=== PATIENT | male | born 1960 | race Caucasian/White ===

== ENCOUNTER → 2017-09-07 | Outpatient (CLI) | payer MEDICARE ==
--- NOTE | 2017-09-07 10:16 | US ---
EXAMINATION TYPE: US liver DATE OF EXAM: 09/07/2017 COMPARISON: CT abdomen and pelvis January 16 2014 CLINICAL HISTORY: R94.5 Abnormal Liver Function Test. Large body habitus EXAM MEASUREMENTS: Liver Length: 13.8 cm Gallbladder Wall: 0.1 cm CBD: 0.4 cm Right Kidney: 10.7x4.4x5.5 cm Pancreas: Obscured by bowel gas Liver: fatty liver Gallbladder: wnl Evidence for sonographic Tena's sign: No CBD: wnl Right Kidney: small cortical cyst, 0.7 x 0.8 x 0.7 cm, non obstructing calculi lower pole 0.5 cm Visualized pancreas shows no mass or ductal dilatation. Portions are obscured by shadowing from overl [place] bowel gas on images saved. Visualized aorta shows no aneurysmal change. IVC is seen near hepatic dome. Visualized liver is heterogeneously hyperechoic consistent with diffuse fatty infiltration. No intrahepatic ductal dilatation is seen. No suspicious masses are seen on images saved. IMPRESSION: Heterogeneous hyperechoic appearance of liver is felt on basis of diffuse fatty infiltrat ion, no significant change from prior CT 2013.
== END ==
LOC: RADUSWWP 08:36
PROVIDERS: ATTEND Family Medicine
DX: R94.5 Abnormal results of liver function studies (principal)
CPT/HCPCS: 76705

== ENCOUNTER 2017-09-28 09:12 | Emergency (ER) | payer MEDICARE ==
[2017-09-28] MEDS ORDERED: SODIUM CHLORIDE 0.9% 1,000 ML IV STA (09:26)
[2017-09-28] MEDS ORDERED: ONDANSETRON 4 MG/2 ML VIAL IVP STA ×2 (09:51→10:39)
[2017-09-28] MEDS ORDERED: KETOROLAC 30 MG/ML 1 ML VIAL IVP STA (09:51)
--- NOTE | 2017-09-28 09:53 | ED ---
Abdominal Pain HPI - General Chief Complaint: Abdominal Pain Stated Complaint: Kidney stones Time Seen by Provider: 09/28/17 09:26 Source: patient, RN notes reviewed Mode of arrival: wheelchair Limitations: no limitations - History of Present Illness Initial Comments: 56-year-old male presents emergency Department chief complaint of right flank pain. Patient states symptoms started this morning. Patient states he has a history kidney stones has had have surgery and lithotripsy in the past. Patient admits to nausea vomiting no diarrhea no constipation. Patient reports no fevers no chills. Patient's urologist is Dr. Gregg. Patient states that he is unable to urinate and needs to go at this time. - Related Data Home Medications Medication Instructions Recorded Confirmed Citalopram Hydrobromide 20 mg PO DAILY 09/28/17 09/28/17 [Citalopram HBr] Previous Rx's Medication Instructions Recorded Hydrocodone/Acetaminophen [[place] 1 tab PO Q6HR PRN #12 tab 09/28/17 5-325] Ibuprofen [Motrin] 600 mg PO Q8HR PRN #30 tab 09/28/17 Ondansetron Odt [Zofran Odt] 4 mg PO Q8HR PRN #10 tab 09/28/17 Tamsulosin [Flomax] 0.4 mg PO DAILY #7 cap 09/28/17 Allergies Allergy/AdvReac Type Severity Reaction Status Date / Time No Known Allergies Allergy Verified 09/28/17 09:33 Review of Systems ROS Statement: Those systems with pertinent positive or pertinent negative responses have been documented in the HPI. ROS Other: All systems not noted in ROS Statement are negative. Past Medical History Past Medical History: Sleep Apnea/CPAP/BIPAP Additional Past Medical History / Comment(s): kidney stones, hep c, DDD, History of Any Multi-Drug Resistant Organisms: None Reported Past Surgical History: Orthopedic Surgery Additional Past Surgical History / Comment(s): 9--15 posterior lumbar decompression,fusion l2-3-4,l4-l5. transforaminal lumbar interbody fusion. lithotripsy,BILAT CTR,RT 4TH TRIGGER FINGER RELEASE COLONOSCOPY SPINAL INJECTIONS. Past Anesthesia/Blood Transfusion Reactions: No Reported Reaction Past Psychological History: Anxiety, Depression Smoking Status: Current every day smoker Past Alcohol Use History: None Reported Past Drug Use History: None Reported, Cocaine, IV Drug Use, Marijuana - Past Family History Father Additional Family Medical History / Comment(s): AROUND AGE 70 UNK HX Mother Family Medical History: Cancer, Osteoarthritis (OA) Additional Family Medical History / Comment(s): SKIN CANCER MOM IS 81 YEARS OLD General Exam Limitations: no limitations General appearance: alert, in no apparent distress Head exam: Present: atraumatic, normocephalic, normal inspection Eye exam: Present: normal appearance, PERRL, EOMI. Absent: scleral icterus, conjunctival injection, periorbital swelling ENT exam: Present: normal exam, normal oropharynx, mucous membranes moist Neck exam: Present: normal inspection. Absent: tenderness, meningismus, lymphadenopathy Respiratory exam: Present: normal lung sounds bilaterally. Absent: respiratory distress, wheezes, rales, rhonchi, stridor Cardiovascular Exam: Present: regular rate, normal rhythm, normal heart sounds. Absent: systolic murmur, diastolic murmur, rubs, gallop, clicks GI/Abdominal exam: Present: soft, tenderness (Mild suprapubic tenderness), normal bowel sounds. Absent: distended, guarding, rebound, rigid Back exam: Present: CVA tenderness (R). Absent: CVA tenderness (L) Skin exam: Present: warm, dry, intact, normal color. Absent: rash Course Vital Signs 09/28/17 09/28/17 09/28/17 09:19 11:27 12:10 Temperature 98.5 F Pulse Rate 84 70 66 Respiratory 16 18 18 Rate Blood Pressure 168/98 109/56 118/67 O2 Sat by Pulse 99 96 95 Oximetry 09/28/17 13:08 Temperature Pulse Rate 63 Respiratory 18 Rate Blood Pressure O2 Sat by Pulse 96 Oximetry Medical Decision Making - Medical Decision Making 56-year-old male presents emergency from for right flank pain. Patient has sudden onset of pain consistent with his prior kidney stones. Patient does have notable hematuria. Patient x-ray reveals possible 6 mm stone on the right. Patient will be discharged with Jamel Greene Flomax and follow-up with urology. Patient currently sees Dr. rGegg urologist. Return parameters were discussed. - Lab Data Result diagrams: 09/28/17 10:03 09/28/17 10:03 Lab Results 09/28/17 09/28/17 09/28/17 Range/Units 10:03 10:03 12:50 WBC 6.9 (3.8-10.6) k/uL RBC 4.58 (4.30-5.90) m/uL Hgb 15.8 (13.0-17.5) gm/dL Hct 44.8 (39.0-53.0) % MCV 97.7 (80.0-100.0) fL MCH 34.5 (25.0-35.0) pg MCHC 35.3 (31.0-37.0) g/dL RDW 13.5 (11.5-15.5) % Plt Count 143 L (150-450) k/uL Neutrophils % 65 % Lymphocytes % 19 % Monocytes % 7 % Eosinophils % 5 % Basophils % 1 % Neutrophils # 4.4 (1.3-7.7) k/uL Lymphocytes # 1.3 (1.0-4.8) k/uL Monocytes # 0.5 (0-1.0) k/uL Eosinophils # 0.4 (0-0.7) k/uL Basophils # 0.1 (0-0.2) k/uL Sodium 141 (137-145) mmol/L Potassium 4.2 (3.5-5.1) mmol/L Chloride 107 (98-107) mmol/L Carbon Dioxide 22 (22-30) mmol/L Anion Gap 12 mmol/L BUN 13 (9-20) mg/dL Creatinine 0.70 (0.66-1.25) mg/dL Est GFR (CKD-EPI)AfAm >90 (>60 ml/min/1.73 sqM) Est GFR (CKD-EPI)NonAf >90 (>60 ml/min/1.73 sqM) Glucose 156 H (74-99) mg/dL Calcium 9.8 (8.4-10.2) mg/dL Total Bilirubin 1.4 H (0.2-1.3) mg/dL AST 83 H (17-59) U/L ALT 74 H (21-72) U/L Alkaline Phosphatase 104 (38-126) U/L Total Protein 7.5 (6.3-8.2) g/dL Albumin 4.5 (3.5-5.0) g/dL Amylase 67 (30-110) U/L Lipase 421 H (23-300) U/L Urine Color Yellow Urine Appearance Clear (Clear) Urine pH 6.5 (5.0-8.0) Ur Specific [place] 1.008 (1.001-1.035) Urine Protein Trace H (Negative) Urine Glucose (UA) Negative (Negative) Urine Ketones Negative (Negative) Urine Blood Large H (Negative) Urine Nitrite Negative (Negative) Urine Bilirubin Negative (Negative) Urine Urobilinogen <2.0 (<2.0) mg/dL Ur Leukocyte Esterase Negative (Negative) Urine RBC 50 H (0-5) /hpf Urine WBC 3 (0-5) /hpf Urine Bacteria Occasional H (None) /hpf Urine Mucus Occasional H (None) /hpf Disposition Clinical Impression: Right flank pain, Hematuria, Nephrolithiasis Disposition: HOME SELF-CARE Condition: Stable Instructions: Kidney Stones (ED) Additional Instructions: Please return to the Emergency Department if symptoms worsen or any other concerns. Prescriptions: Hydrocodone/Acetaminophen [[place] 5-325] 1 tab PO Q6HR PRN #12 tab PRN Reason: Pain Ibuprofen [Motrin] 600 mg PO Q8HR PRN #30 tab PRN Reason: Pain Ondansetron Odt [Zofran Odt] 4 mg PO Q8HR PRN #10 tab PRN Reason: Nausea Tamsulosin [Flomax] 0.4 mg PO DAILY #7 cap Is patient prescribed a controlled substance at d/c from ED?: Yes When asked, does pt state using other controlled substances?: No If prescribed controlled substance>3 days was MAPS reviewed?: Prescribed <3 Days If opioid is for acute pain is fill amount 7 days or less?: Yes If Rx opioid, was Start Talking consent form obtained?: Yes Referrals: Franki Garvey MD [Primary Care Provider] - 1-2 days Kee Gregg MD [STAFF PHYSICIAN] - 1-2 days Time of Disposition: 13:19
[2017-09-28 10:20] LABS: Basophils # (A) 0.1 k/uL (0-0.2); Basophils % (A) 1 %; Eosinophils # (A) 0.4 k/uL (0-0.7); Eosinophils % (A) 5 %; HCT 44.8 % (39.0-53.0); HGB 15.8 gm/dL (13.0-17.5); Lymphocytes # (A) 1.3 k/uL (1.0-4.8); Lymphocytes % (A) 19 %; MCH 34.5 pg (25.0-35.0); MCHC 35.3 g/dL (31.0-37.0); MCV 97.7 fL (80.0-100.0); Mean Platelet Volume 7.8; Monocytes # (A) 0.5 k/uL (0-1.0); Monocytes % (A) 7 %; Neutrophils # (A) 4.4 k/uL (1.3-7.7); Neutrophils % (A) 65 %; Platelet Count 143 k/uL (150-450); RBC 4.58 m/uL (4.30-5.90); RDW 13.5 % (11.5-15.5); WBC 6.9 k/uL (3.8-10.6)
[2017-09-28 10:29] LABS: ALT 74 U/L (21-72); AST 83 U/L (17-59); Albumin 4.5 g/dL (3.5-5.0); Alkaline Phosphatase 104 U/L (38-126); Amylase 67 U/L (30-110); Anion Gap 12 mmol/L; Blood Urea Nitrogen 13 mg/dL (9-20); Calcium 9.8 mg/dL (8.4-10.2); Carbon Dioxide 22 mmol/L (22-30); Chloride 107 mmol/L (98-107); Glucose 156 mg/dL (74-99); Lipase 421 U/L (23-300); Potassium 4.2 mmol/L (3.5-5.1); Sodium 141 mmol/L (137-145); Total Bilirubin 1.4 mg/dL (0.2-1.3); Total Protein 7.5 g/dL (6.3-8.2)
--- NOTE | 2017-09-28 10:36 | XR ---
EXAMINATION TYPE: XR KUB DATE OF EXAM: 09/28/2017 COMPARISON: 01/21/2014 INDICATION: Abdominal pain TECHNIQUE: Single view abdomen upright view FINDINGS: Nonspecific bowel gas pattern is present with air within small bowel loops as well as the colon. No f ree air is evident. No differential air-fluid levels are present. Psoas margins are normal. No organomegaly is present. There is a 0.6 cm calcification over the inferior pole the right kidney. IMPRESSION: 1. 0.6 cm calcification inferior pole right kidney 2. Nonspecific bowel gas pattern
[2017-09-28] MEDS ORDERED: MORPHINE SULFATE 2 MG/ML SYRINGE IVP STA ×2 (10:39→11:27)
[2017-09-28] MEDS ORDERED: TAMSULOSIN 0.4 MG CAP.ER.24H PO STA (12:16)
[2017-09-28 13:08] LABS: Appearance,Urine Clear (Clear); Bacteria,Urine Occasional /hpf; Bilirubin,Urine Negative (Negative); Blood,Urine Large (Negative); Color,Urine Yellow; Glucose,Urine (UA) Negative (Negative); Ketones,Urine Negative (Negative); Leukocyte Esterase,Urine Negative (Negative); Mucus,Urine Occasional /hpf; Nitrite,Urine Negative (Negative); PH, Urine 6.5 (5.0-8.0); Protein,Urine Trace (Negative); RBC,Urine 50 /hpf (0-5); Specific Gravity,Urine 1.008 (1.001-1.035); Urobilinogen,Urine <2.0 mg/dL (<2.0); WBC,Urine 3 /hpf (0-5)
[2017-09-28 13:37] VITALS: BP 121/66; PULSE 62; RESP 16; TEMP 97.1
== END 2017-09-28 13:50 | disposition home or self-care (01) ==
LOC: EC 09:12
DX: N20.0 Calculus of kidney (principal); G47.30 Sleep apnea, unspecified; Z99.89 Dependence on other enabling machines and devices; F32.9 Major depressive disorder, single episode, unspecified; F41.9 Anxiety disorder, unspecified; F17.200 Nicotine dependence, unspecified, uncomplicated; Z87.442 Personal history of urinary calculi; Z86.19 Personal history of other infectious and parasitic diseases; Z79.899 Other long term (current) drug therapy
CPT/HCPCS: 51798; 36415; 80053; 82150; 83690; 85025; 81001; 74018; 99284; 96374; 96375 ×2; 96376; 96361; J2405; J1885; J2270

== ENCOUNTER → 2017-10-02 | Outpatient (CLI) | payer MEDICARE ==
[2017-10-02 11:03] LABS: Albumin 4.5 g/dL (3.5-5.0); Bilirubin, Delta 0.3 mg/dL (0.0-0.2); Bilirubin,Unconjugated 0.7 mg/dL (0.0-1.1); Total Protein 7.6 g/dL (6.3-8.2)
== END | disposition home or self-care (01) ==
LOC: LABWHC1 10:22
PROVIDERS: ATTEND Family Medicine
DX: R94.5 Abnormal results of liver function studies (principal)
CPT/HCPCS: 36415; 80076

== ENCOUNTER → 2017-10-05 | Outpatient (CLI) | payer MEDICARE ==
--- NOTE | 2017-10-05 09:20 | CT ---
EXAMINATION TYPE: CT abdomen pelvis wo con DATE OF EXAM: 10/05/2017 COMPARISON: 01/16/2014 HISTORY: Bilateral flank pain, history of stones CT DLP: 1153 mGycm Automated exposure control for dose reduction was used. TECHNIQUE: Helical acquisition of images was performed from the lung bases through the pelvis. FINDINGS: LUNG BASES: Minimal bibasilar subsegmental atelectasis is noted. LIVER/GB: There is a cirrhotic morphology of the liver with peripheral nodularity and overall diffuse heterogeneity of the hepatic parenchyma. Lack of intravenous contrast and hepatocellular disease gilman it evaluation for hepatic masses. Screening MR could be performed to evaluate for small hepatoma. Haz iness of the central mesentery and engorgement of the portal vein as well as few gastrohepatic ligame nt small varices suggest early portal hypertension. PANCREAS: No ductal dilatation. SPLEEN: Unremarkable in size with multiple adjacent splenules. The spleen is enlarged measuring 14.1 cm in craniocaudal dimension. ADRENALS: No thickening or nodularity. KIDNEYS: Nonobstructing left lower pole renal calculus measures 4 mm. Nonobstructing right lower pole renal calculus measures 8 mm. Punctate 2 mm right midpole renal calculus is also present. No evidenc e of hydronephrosis or ureteral calculus bilaterally. There is a 3 mm calculus identified within the urinary bladder just distal to the right ureterovesicular junction suggesting recently passed stone. Urinary bladder is decompressed with circumferential wall thickening likely attributable to nondisten tion. FREE AIR: No free air is visualized ADENOPATHY: No greater than 1 cm short axis lymph nodes are seen within the abdomen or pelvis. REPRODUCTIVE ORGANS: Prostate gland is heterogenous containing central zone calcifications. OSSEOUS STRUCTURES: Surgical fusion of the L2-L5 vertebral bodies is seen. Multilevel degenerative c hange of the visualized thoracolumbar spine. BOWEL: Scattered colonic diverticula are seen without pericolonic fat stranding. Appendix is air-gómez led and within normal limits. No dilation of the large or small bowel. IMPRESSION: 1. FINDINGS SUGGESTING A RECENTLY PASSED RIGHT-SIDED 3 MM CALCULUS NOW LOCATED WITHIN THE URINARY CONNOR DDER JUST DISTAL TO THE RIGHT URETEROVESICULAR JUNCTION. 2. BILATERAL NONOBSTRUCTING RENAL CALCULI. 3. CIRRHOTIC MORPHOLOGY OF THE LIVER WITH FINDINGS SUGGESTING EARLY PORTAL HYPERTENSION.
== END | disposition home or self-care (01) ==
LOC: RADCTMAIN 08:12
PROVIDERS: ATTEND Urology
DX: N21.0 Calculus in bladder (principal); N20.0 Calculus of kidney
CPT/HCPCS: 74176

== ENCOUNTER → 2017-10-27 | Outpatient (CLI) | payer MEDICARE ==
--- NOTE | 2017-10-27 12:33 | XR ---
Abdomen HISTORY: Renal calculus, follow-up right-sided lithotripsy Frontal view of the abdomen on 2 images correlated to prior exam 09/28/2017, prior CT abdomen pelvis The calcification seen at the lower pole the right kidney on previous exam is no longer evident. Ther e is a calcification in the midpole the left kidney measuring approximately 3 to 4 mm. Areas of overl [place] bowel gas which may obscure detail. Indications are within the pelvis. Impression: Interval lithotripsy.
== END | disposition home or self-care (01) ==
LOC: RADXRMAIN 09:36
PROVIDERS: ATTEND Urology
DX: N20.0 Calculus of kidney (principal); Z98.890 Other specified postprocedural states
CPT/HCPCS: 74018

== ENCOUNTER → 2017-11-30 | Outpatient (CLI) | payer MEDICARE ==
[2017-11-30 10:57] LABS: Albumin 4.1 g/dL (3.5-5.0); Bilirubin, Delta 0.3 mg/dL (0.0-0.2); Bilirubin,Unconjugated 0.8 mg/dL (0.0-1.1); Total Bilirubin 1.1 mg/dL (0.2-1.3); Total Protein 7.3 g/dL (6.3-8.2)
[2017-11-30 10:58] LABS: Basophils # (A) 0.1 k/uL (0-0.2); Basophils % (A) 1 %; Eosinophils # (A) 0.4 k/uL (0-0.7); Eosinophils % (A) 5 %; HCT 44.9 % (39.0-53.0); HGB 15.3 gm/dL (13.0-17.5); Lymphocytes # (A) 1.6 k/uL (1.0-4.8); Lymphocytes % (A) 22 %; MCV 97.2 fL (80.0-100.0); Mean Platelet Volume 8.1; Monocytes # (A) 0.5 k/uL (0-1.0); Monocytes % (A) 7 %; Neutrophils # (A) 4.4 k/uL (1.3-7.7); Neutrophils % (A) 62 %; Platelet Count 129 k/uL (150-450); RBC 4.62 m/uL (4.30-5.90); WBC 7.1 k/uL (3.8-10.6)
[2017-11-30 16:58] LABS: Iron Saturation 29.45 (15.00-50.00)
[2017-11-30 17:18] LABS: Alpha Fetoprotein, Tumor Mkr <2.5 ng/mL (0.0-7.9)
== END | disposition home or self-care (01) ==
LOC: LABWHC1 09:43
DX: R94.5 Abnormal results of liver function studies (principal); D69.6 Thrombocytopenia, unspecified
CPT/HCPCS: 36415; 80076; 82105; 82728; 83540; 83550; 85025

== ENCOUNTER → 2018-01-10 | Outpatient (CLI) | payer MEDICARE ==
--- NOTE | 2018-01-10 16:32 | CONS ---
CONSULTATION DATE OF SERVICE: 01/10/2018 This patient is a 57-year-old gentleman who has been evaluated in the sleep center for obstructive sleep apnea-hypopnea syndrome. HISTORY OF PRESENT ILLNESS/SLEEP-WAKE EVALUATION: This patient was diagnosed with sleep apnea about 10 years ago in another institution. Since that time he has been on treatment with CPAP every night for the whole night. Original sleep study was done as a home sleep apnea test. He never had a polysomnogram or CPAP titration. At present he is using his machine, as already mentioned, every night. I checked his CPAP unit. The pressure is in the range between 5 and 20. Usage is 30/30 for more than 4 hours, average 7.7 hours per night. Patient's usual sleep schedule is from between midnight and 2 a.m. until between 7 and 10 a.m. Sometimes he has problems with falling asleep. No TV in bedroom. Usually he sleeps on the back position. He may wake up from sleep up to 4 times. With the machine he usually has no snoring. G[place]mith Sleepiness Scale is 5. As already mentioned, I checked the patient's CPAP unit. It showed great compliance, but there is not any information from the machine about apnea-hypopnea index. PAST MEDICAL HISTORY: 1. Back problems. 2. Depression. 3. Kidney stones. PAST SURGICAL HISTORY: 1. Surgery for kidney stones. 2. Surgery for bilateral carpal tunnel syndrome. 3. Back surgery. MEDICATIONS: 1. Celexa. 2. Percocet. SOCIAL HISTORY: Positive for smoking for about 40 years; at present less than 1 pack a day. The patient continues to smoke. Alcohol consumption none for many years. FAMILY HISTORY: Hypertension, stroke, arthritis, sinus headaches, cancer, thyroid problems, mental illness. REVIEW OF SYSTEMS: Sometimes awakenings from sleep while on treatment with CPAP. Also patient has twitching movements at night, according to his . PHYSICAL EXAMINATION: GENERAL A pleasant gentleman without distress. VITAL SIGNS: BP 134/81, HR 78, RR 18, height 5 feet 7-1/2 inches, weight 240.6, BMI 37, temperature 97.7, oxygen saturation at room air 94%. HEENT: PERRLA, EOMI. Evaluation of oropharynx showed tongue protrudes midline; extremely low position of soft palate. NECK: Wide; 19 inches in circumference. Supple. No JVD. Thyroid is not palpable. LUNGS: Clear to percussion and to auscultation. Good air exchange. No wheezing or rhonchi. HEART: S1, S2 regular. No murmurs, gallops or rubs. ABDOMEN: Slightly obese. EXTREMITIES : No clubbing or cyanosis. ASSOCIATE ACCOUNT MANAGER: Awake, alert, and oriented X3. Cranial nerves 2 to 7 intact. There is no fasciculation or atrophy. noted. No focal deficits observed. IMPRESSION: 1. Obstructive sleep apnea-hypopnea syndrome for 10 years. The patient continues to use his CPAP equipment. He never had CPAP titration; he was diagnosed based on a home sleep test which was done by another institution. Low position of soft palate, wide neck; obstructive sleep apnea-hypopnea syndrome. 2. Obesity with body mass index 37. 3. Back problems. 4. Status post back surgery. 5. History of depression. 6. History of kidney stones. 7. Status post surgical treatment of kidney stones. 8. Status post surgery for bilateral carpal tunnel syndrome. PLAN: 1. Prescription for all necessary CPAP supplies, including mask, tube, filters. We will replace his CPAP unit. 2. I will follow the patient when he receives his new CPAP unit to check apnea- hypopnea index to be sure that his respiration is under control. 3. If patient continues to have twitching movements at night, he may need a polysomnograph for evaluation of leg movements and subsequent treatment if necessary. 4. Sleep hygiene with regular time in bed for at least 8 hours. 5. Watching and losing weight. 6. No driving if feeling any sleepiness. Thank you very much for referring this patient for consultation. Sincerely, Jesús Garcia MD, PhD, FAASM Diplomat of [employer] [employer] Security Test Engineer of [facility] [place] MMODL / IJN: [id number] /
== END ==
LOC: SLEEP 14:41
PROVIDERS: ATTEND Internal Medicine
DX: G47.33 Obstructive sleep apnea (adult) (pediatric) (principal); E66.9 Obesity, unspecified; F32.9 Major depressive disorder, single episode, unspecified; R29.898 Other symptoms and signs involving the musculoskeletal system; F17.200 Nicotine dependence, unspecified, uncomplicated; Z84.1 Family history of disorders of kidney and ureter; Z98.890 Other specified postprocedural states; Z68.37 Body mass index [BMI] 37.0-37.9, adult; Z79.891 Long term (current) use of opiate analgesic; Z79.899 Other long term (current) drug therapy; Z99.89 Dependence on other enabling machines and devices
CPT/HCPCS: 99211

== ENCOUNTER → 2018-02-22 | Outpatient (CLI) | payer MEDICARE ==
--- NOTE | 2018-02-22 14:48 | SFUN ---
SLEEP CENTER FOLLOW UP NOTE DATE OF SERVICE: 02/22/2018 . A 57-year-old gentleman has been followed in the Sleep Center for treatment of obstructive sleep apnea-hypopnea syndrome. Recently patient received his new CPAP unit and he is using it without any significant problems. He feels comfortable with the machine. No snoring. No sleepiness during the day. [place] Sleepiness Scale today is 6, which is normal. I checked patient's CPAP unit. Usage is 100% of the time more than 4 hours every 7.7 hours. Pressure in the range of 5-15, 95% to a pressure of 11.8. Leak is 18 L per minute, which is borderline. Apnea-hypopnea index only 1.1. Patient feels that REM stopped at too low, which is now 5 cm of water. MEDICATIONS: Celexa, Percocet. PHYSICAL EXAM: Patient in no distress. BP 140/81, HR 74, RR 16, weight 238.4, temperature 98.2, respiratory rate 16. Neck is 19 inches in circumference. OROPHARYNX: Extremely low position of soft palate. ABDOMEN: Slightly obese. LUNGS Clear to percussion and to auscultation. Good air exchange. No wheezing or rhonchi. HEART S1, S2 regular. No murmurs, gallops, or rubs. EXTREMITIES No clubbing or cyanosis. CELL RELINER Awake, alert, and oriented X3. Cranial nerves 2 to 7 intact. There is no fasciculation or atrophy. noted. No focal deficits observed. IMPRESSION: 1. Obstructive sleep apnea-hypopnea syndrome. Full control with CPAP. Patient demonstrated 100% compliance with treatment, benefitting from treatment. 2. Obesity. 3. History of depression. 4. Status post back surgery. 5. Back problems. 6. History of kidney stones. 7. Status post surgical treatment for kidney stones. 8. Status post surgery for bilateral carpal tunnel syndrome. PLAN: 1. I changed regimen in the machine. It will start from 7 cm of water instead of 5 in REM. It will go to the range of pressure between 10 and 13. We will change mask to a DreamWear medium weight. 2. Losing weight. 3. Continue to use CPAP equipment every night. 4. No driving if feeling sleepiness. 5. Followup visit in 10 months or earlier if patient has any problems. Thank you very much for allowing me to participate in management of your patient. Sincerely, Jesús Garcia MD, PhD, FAASM Diplomat of [employer] Senior Scrum Master of [facility] [place] MMODL / BREA: [id number] /
== END | disposition home or self-care (01) ==
LOC: SLEEP 13:22
PROVIDERS: ATTEND Internal Medicine
DX: G47.33 Obstructive sleep apnea (adult) (pediatric) (principal); E66.9 Obesity, unspecified; F32.9 Major depressive disorder, single episode, unspecified; M53.9 Dorsopathy, unspecified; Z87.442 Personal history of urinary calculi; Z99.89 Dependence on other enabling machines and devices; Z98.890 Other specified postprocedural states; Z79.891 Long term (current) use of opiate analgesic; Z79.899 Other long term (current) drug therapy

== ENCOUNTER → 2018-03-21 | Outpatient (CLI) | payer MEDICARE ==
--- NOTE | 2018-03-21 09:18 | US ---
EXAMINATION TYPE: US abdomen complete DATE OF EXAM: 03/21/2018 COMPARISON: CT 10/05/17, US 09/07/17 CLINICAL HISTORY: R19.06 Epigastric swell mass or lump. history of hepatitis c, patient feels lump M UQ EXAM MEASUREMENTS: Liver Length: 17.9 cm Gallbladder Wall: 0.2 cm CBD: 0.5 cm Spleen: 12.7 cm Right Kidney: 11.2 x 6.0 x 5.2 cm Left Kidney: 11.2 x 5.9 x 5.6 cm Pancreas: Obscured by bowel gas Liver: enlarged, heterogeneous texture. ? mass very anterior = 2.7 x 2.7 x 2.2 cm This is in the are a that patient feels lump. Gallbladder: Suboptimal d/t patient not NPO Evidence for sonographic Tena's sign: No CBD: wnl Spleen: Upper limits of normal Right Kidney: wnl Left Kidney: 1cm stone seen mid pole Upper IVC: wnl Abd Aorta: wnl The intrahepatic portion of the IVC and proximal abdominal aorta are within normal limits. There is no evidence of cholelithiasis. Common bile duct is unremarkable. The visualized portions of the pa ncreas are homogenous. Kidneys are symmetric and free of hydronephrosis. No renal lesions are see n. IMPRESSION: 1. Hepatomegaly with underlying diffuse hepatocellular disease versus fatty liver. 2. Masslike area noted as discussed above. Contrast-enhanced CT or MRI of the liver is advised.
== END | disposition home or self-care (01) ==
LOC: RADUSWWP 08:18
PROVIDERS: ATTEND Physical Medicine & Rehabilitation
DX: R16.0 Hepatomegaly, not elsewhere classified (principal); R19.06 Epigastric swelling, mass or lump
CPT/HCPCS: 76700

== ENCOUNTER → 2018-03-26 | Outpatient (CLI) | payer MEDICARE ==
[2018-03-26 11:13] LABS: Basophils # (A) 0.1 k/uL (0-0.2); Basophils % (A) 1 %; Eosinophils # (A) 0.3 k/uL (0-0.7); Eosinophils % (A) 4 %; HGB 16.4 gm/dL (13.0-17.5); Lymphocytes # (A) 1.7 k/uL (1.0-4.8); Lymphocytes % (A) 24 %; MCH 33.1 pg (25.0-35.0); MCHC 33.5 g/dL (31.0-37.0); MCV 98.8 fL (80.0-100.0); Mean Platelet Volume 7.7; Monocytes # (A) 0.5 k/uL (0-1.0); Monocytes % (A) 7 %; Neutrophils # (A) 4.3 k/uL (1.3-7.7); Neutrophils % (A) 61 %; Platelet Count 140 k/uL (150-450); RBC 4.96 m/uL (4.30-5.90); RDW 13.1 % (11.5-15.5); WBC 7.1 k/uL (3.8-10.6)
[2018-03-26 16:25] LABS: Albumin 4.6 g/dL (3.80-4.90); Albumin/Globulin Ratio 1.7 (1.20-2.10); Anion Gap 5.3 mmol/L (4.00-12.00); Calcium 9.8 mg/dL (8.7-10.3); Carbon Dioxide 28.7 mmol/L (21.6-31.8); Globulin 2.7 g/dL (2.1-3.7); Potassium 5.3 mmol/L (3.5-5.5); Total Bilirubin 1.3 mg/dL (0.2-1.2); Total Protein 7.3 g/dL (6.2-8.2)
[2018-03-26 16:33] LABS: T4, Free (Free Thyroxine) 0.9 ng/dL (0.80-1.80)
== END ==
LOC: LABWHC1 09:45
PROVIDERS: ATTEND Nurse Practitioner Women's Health
DX: Z00.00 Encounter for general adult medical examination without abnormal findings (principal); E11.9 Type 2 diabetes mellitus without complications; Z12.5 Encounter for screening for malignant neoplasm of prostate
CPT/HCPCS: 36415; 80053; 80061; 84153; 84439; 84443; 85025

== ENCOUNTER → 2018-03-27 | Outpatient (CLI) | payer MEDICARE ==
--- NOTE | 2018-03-27 20:56 | MR ---
EXAMINATION TYPE: MR lumbar spine wo/w con DATE OF EXAM: 03/27/2018 COMPARISON: Plain film 12/24/2014 HISTORY: LBP x 8 years, prior surgery 2014 TECHNIQUE: Multiplanar, multisequence images of the lumbar spine were acquired utilizing 10 mL intravenous Gadav ist gadolinium contrast. L1-L2: Posterior broad-based disc bulge causes anterior mass effect on the thecal sac, mild to modera te central canal stenosis. Hypertrophy of the ligamentum flavum causes some posterior lateral mass ef fect on the thecal sac. Circumferential extension endplate disc complex encroaches somewhat greater o n the right neural foramen than left. L2-L3: Artifact is extensive. No definite spinal stenosis. Difficult to exclude some foraminal encroa chment on the right. L3-L4: Detail somewhat obscured by artifact. No definite spinal stenosis. No definite foraminal encro achment. L4-L5: There are laminectomy change is present. No significant central canal stenosis. Minimal disc b ulge causes slight anterior mass effect on the thecal sac. Difficult to exclude some foraminal encroa chment. L5-S1: Posterior central disc herniation is present contacting the anterior thecal sac and possibly t he proximal S1 nerve roots. There are facet arthropathy changes. No significant central stenosis. Cir cumferential extension of endplate disc complex encroaches upon the neural foramina right greater sofiya n left. Axial image #5 there is a small focus of low signal on T2, intermediate signal on T1 with emerson e questionable enhancement posterior to the inferior margin of L5 showing some minimal mass effect an teriorly on the thecal sac. Lumbar segments are intact. No paraspinal masses are identified. Conus medullaris has a normal appe arance. Lumbar vertebral bodies show preserved height. Posterior fixation at L2-L5 is again noted, brownlee sceptibility artifact obscures detail. Intervertebral spacing blocks present L3-4, L4-5. There is mul tilevel spondylosis, endplate discogenic marrow signal change. Loss of disc height and signal is pres ent at the intervertebral levels, there is associated vacuum phenomenon present at L5-S1. IMPRESSION: Degenerative disc disease as described with disc bulges at L1-2, L5-S1 as described.
== END | disposition home or self-care (01) ==
LOC: RADMRIMAIN 17:05
PROVIDERS: ATTEND Physical Medicine & Rehabilitation
DX: M51.26 Other intervertebral disc displacement, lumbar region (principal); M51.27 Other intervertebral disc displacement, lumbosacral region; M51.36 Other intervertebral disc degeneration, lumbar region; M51.37 Other intervertebral disc degeneration, lumbosacral region
CPT/HCPCS: 72158; A9585

== ENCOUNTER → 2018-05-18 | Outpatient (CLI) | payer MEDICARE ==
[2018-05-18 11:32] LABS: Blood Urea Nitrogen 13 mg/dL (9-20)
--- NOTE | 2018-05-18 16:34 | CT ---
EXAMINATION TYPE: CT abdomen w con DATE OF EXAM: 05/18/2018 COMPARISON: 10/05/2017 INDICATION: Epigastric pain with lump marked by BB DLP: 1440.3 mGycm, Automated exposure control for dose reduction was used. CONTRAST: 100 mL of Isovue 300. Study performed with Oral Contrast TECHNIQUE: Axial images were obtained from above the diaphragm to the iliac crests in the axial plane at 5 mm thick sections. Reconstructed images are reviewed on the computer in the coronal plane. FINDINGS: Limited CT sections are obtained the lung bases. The lung bases are clear. CT ABDOMEN: BB gray a skin and the epigastric region at the level of the patient's pain. This is jus t below the level of the liver and above the antrum of the stomach. No suspicious underlying abnormal ity is evident. Liver: Normal Spleen: Normal. Small splenule may be at the splenic hilum. Pancreas: Normal Adrenal glands: The adrenal glands are normal. Gallbladder: Normal Kidneys: No masses are evident. No hydronephrosis is present. No cysts are present. There are nono bstructing renal stones present bilaterally. This is in the posterior right mid kidney measuring 0.3 cm and in the mid to upper pole left kidney measuring 0.4 cm. Delayed images were obtained through th e kidneys. No hydronephrosis or hydroureter is evident. Aorta: Normal Inferior vena cava: Normal. Loops of bowel within the abdomen distended with oral contrast appear unremarkable. There are loops o f bowel lacking oral contrast limiting their evaluation. No dilated loops of bowel are evident. Fecal debris is within the colon. IMPRESSIONS: 1. No suspicious abnormality to account for the patient's epigastric pain.
== END ==
LOC: RADCTMAIN 10:50
PROVIDERS: ATTEND Surgery
DX: K76.89 Other specified diseases of liver (principal)
CPT/HCPCS: 82565; 84520; 74160; 36415; Q9967

== ENCOUNTER → 2018-06-04 | Outpatient (CLI) | payer MEDICARE ==
--- NOTE | 2018-06-05 08:25 | MR ---
EXAMINATION TYPE: MR liver wo/w con DATE OF EXAM: 06/04/2018 COMPARISON: Complete abdominal ultrasound March 21, 2018. CT abdomen May 18, [address] HISTORY: Back Pain, Abdominal Pain, abnormal CT. CONTRAST: Standard multiplanar, multisequence MRI departmental protocol utilizing 10 mL intravenous Gadavist ga dolinium contrast. Imaging is performed of the abdomen focusing on the liver. FINDINGS: LIVER: Liver is overall slightly small in size with lobulated peripheral nodular contour, imaging sherry racteristics are consistent with underlying cirrhosis. Gallbladder has slight cystic change along the anterior wall consistent with focal cholesterolosis. No dependent gallstones or abnormal gallbladder wall thickening is seen. There is no suspicious intrahepatic or extra hepatic biliary dilatation. Dy namic postcontrast images show irregular peripheral areas of enhancement with some geographic areas o f enhancement throughout the right and left hepatic lobes. Of most of suspicion are some anterior rig ht hepatic dome heterogeneous peripheral enhancing areas seen best series 701 image 446 that are less well seen on delayed phased images. More anterior area measures 1.5 cm, more posterior area measures roughly 1.8 cm long axis. They do show less prominent but some persistent heterogeneous enhancement on delayed images. No definitive lesions of T1 or T2 hyperintensity are clearly seen. There is no def initive 2.8 cm focal lesion to correspond to area of concern on recent ultrasound. No surrounding asc ites is seen. There are patent hepatic veins draining into IVC. There is patent main portal vein. Kennedi ging noted suboptimal as there is no true hepatic arterial phase, first postcontrast axial phase show s contrast in the hepatic veins draining into IVC. OTHER: Spleen is mildly enlarged at 14.0 cm long axis coronal image 29. Pancreas and both adrenal gl ands are normal in size. There is no concerning renal mass or hydronephrosis. There is no suspicious small or large bowel dilatation. There is postsurgical change with posterior interpedicular rods and screws causing artifact in the lumbar spine. IMPRESSION: Findings are consistent with cirrhosis and splenomegaly suggesting underlying portal hypertension. Ma rked heterogeneity is present without definitive suspicious focal mass. LR-3 (LIVER RADS) -- intermediate probability for HCC. Recommendation: Repeat liver protocol contrast MRI in 3-6 months time or alternative imaging at that time should be considered. Correlate clinically with alpha-fetoprotein levels.
== END | disposition home or self-care (01) ==
LOC: RADMRIMAIN 18:57
PROVIDERS: ATTEND Surgery
DX: K76.89 Other specified diseases of liver (principal)
CPT/HCPCS: 74183; A9585

== ENCOUNTER → 2018-10-15 | Outpatient (CLI) | payer MEDICARE ==
--- NOTE | 2018-10-15 11:11 | XR ---
EXAMINATION TYPE: XR chest 2V DATE OF EXAM: 10/15/2018 COMPARISON: 12/15/2014 HISTORY: 57-year-old male with cough TECHNIQUE: PA and lateral views FINDINGS: The cardiomediastinal silhouette, aorta, and pulmonary vasculature are within normal limits. Are priscilla bronchial cuffing is noted. Otherwise, lungs and pleural spaces are clear. IMPRESSION: Mild peribronchial cuffing may reflect bronchitis or asthma. No focal infiltrate.
== END | disposition home or self-care (01) ==
LOC: RADXRMAIN 10:48
PROVIDERS: ATTEND Nurse Practitioner Family
DX: R05 Cough (principal)
CPT/HCPCS: 71046

== ENCOUNTER 2018-11-11 13:08 | Emergency (ER) | payer MEDICARE ==
[2018-11-11 13:18] VITALS: RESP 18; TEMP 98.6
--- NOTE | 2018-11-11 13:33 | ED ---
General Adult HPI - General Chief complaint: Neuro Symptoms/Deficit Stated complaint: Facial weakness Time Seen by Provider: 11/11/18 13:25 Source: patient, family, RN notes reviewed Mode of arrival: ambulatory Limitations: no limitations - History of Present Illness Initial comments: Patient is a pleasant 57-year-old male presenting to the emergency Department with facial weakness. Patient did notice some symptoms 2 days ago. Symptoms have worsened since that time. Patient states his right eye is watery. Patient has difficulty shutting his right eye. There may be some mild slurred speech. Patient does complain of moderate headache. Headache was not sudden onset. No extremity weakness. No loss of sensation or paresthesias. No confusion. - Related Data Home Medications Medication Instructions Recorded Confirmed Citalopram Hydrobromide 20 mg PO DAILY 09/28/17 11/11/18 [Citalopram HBr] metFORMIN HCL [Glucophage] 500 mg PO BID 04/03/18 11/11/18 Cyclobenzaprine [Flexeril] 10 mg PO DAILY PRN 11/11/18 11/11/18 Fluticasone Nasal Gibson [Flonase 1 spray EA NOSTRIL DAILY PRN 11/11/18 11/11/18 Nasal Gibson] Loratadine [Claritin] 10 mg PO DAILY 11/11/18 11/11/18 oxyCODONE-APAP 10-325MG [Percocet 1 tab PO Q8HR PRN 11/11/18 11/11/18 10-325 mg] Previous Rx's Medication Instructions Recorded predniSONE 3 tab PO DAILY #21 tab 11/11/18 valACYclovir HCL [Valtrex] 1 tab PO TID #21 tablet 11/11/18 Allergies Allergy/AdvReac Type Severity Reaction Status Date / Time No Known Allergies Allergy Verified 11/11/18 13:54 Review of Systems ROS Statement: Those systems with pertinent positive or pertinent negative responses have been documented in the HPI. ROS Other: All systems not noted in ROS Statement are negative. Constitutional: Denies: fever Eyes: Denies: eye pain ENT: Denies: ear pain Respiratory: Denies: cough Cardiovascular: Denies: chest pain Endocrine: Denies: fatigue Gastrointestinal: Denies: abdominal pain Genitourinary: Denies: dysuria Musculoskeletal: Denies: back pain Skin: Denies: rash Neurological: Reports: as per HPI, headache. Denies: numbness, paresthesias, confusion, abnormal gait, vertigo Past Medical History Past Medical History: Diabetes Mellitus, Sleep Apnea/CPAP/BIPAP Additional Past Medical History / Comment(s): kidney stones, hep c, DDD, History of Any Multi-Drug Resistant Organisms: None Reported Past Surgical History: Orthopedic Surgery Additional Past Surgical History / Comment(s): 12-24-15 posterior lumbar decompression,fusion l2-3-4,l4-l5. transforaminal lumbar interbody fusion. lithotripsy,BILAT CTR,RT 4TH TRIGGER FINGER RELEASE COLONOSCOPY SPINAL INJECTIONS. Past Anesthesia/Blood Transfusion Reactions: No Reported Reaction Past Psychological History: Anxiety, Depression Smoking Status: Current every day smoker Past Alcohol Use History: None Reported Past Drug Use History: None Reported - Past Family History Father Additional Family Medical History / Comment(s): AROUND AGE 70 UNK HX Mother Family Medical History: Cancer, Osteoarthritis (OA) Additional Family Medical History / Comment(s): SKIN CANCER MOM IS 81 YEARS OLD General Exam Limitations: no limitations General appearance: alert, in no apparent distress Head exam: Present: atraumatic Eye exam: Present: normal appearance, PERRL, EOMI. Absent: nystagmus ENT exam: Present: normal oropharynx Neck exam: Present: normal inspection Respiratory exam: Present: normal lung sounds bilaterally Cardiovascular Exam: Present: regular rate, normal rhythm GI/Abdominal exam: Present: soft. Absent: tenderness Extremities exam: Present: normal inspection Neurological exam: Present: alert, oriented X3, CN II-XII intact (Except for right-sided facial droop that does involve the forehead and eyelids.) Expanded Neurological exam: Present: protecting the airway Speech: Present: fluid speech Cranial nerves: EOM's Intact: Normal, Facial Sensation: Normal Sensory exam: Upper Extremity Light Touch: Normal, Lower Extremity Light Touch: Normal Motor strength exam: RUE: 5, LUE: 5, RLE: 5, LLE: 5 Eye Response: (4) open spontaneously Motor Response: (6) obeys commands Verbal Response: (5) oriented Psychiatric exam: Present: normal affect, normal mood Skin exam: Present: normal color Course Vital Signs 11/11/18 11/11/18 13:15 13:41 Temperature 98.6 F Pulse Rate 79 74 Respiratory 18 18 Rate Blood Pressure 167/89 121/75 O2 Sat by Pulse 96 96 Oximetry Medical Decision Making - Radiology Data Radiology results: report reviewed (Computed tomography scan the brain reveals no acute process) Disposition Clinical Impression: Russo's palsy Disposition: HOME SELF-CARE Condition: Stable Instructions (If sedation given, give patient instructions): Russo Palsy (ED) Additional Instructions: Please follow-up with primary care physician in the next day or 2 for recheck. Use Lacri-Lube 4 times daily and prior to going to bed. Tape your right eye shut at bedtime. Return for increase weakness, other areas of involvement, confusion, worsening symptoms or other concerns. Prescriptions: predniSONE 3 tab PO DAILY #21 tab valACYclovir HCL [Valtrex] 1 tab PO TID #21 tablet Is patient prescribed a controlled substance at d/c from ED?: No Referrals: Franki Garvey MD [Primary Care Provider] - 1-2 days Time of Disposition: 14:32
[2018-11-11 13:44] VITALS: BP 121/75; PULSE 74
--- NOTE | 2018-11-11 14:06 | CT ---
EXAMINATION TYPE: CT brain wo con DATE OF EXAM: 11/11/2018 COMPARISON: None HISTORY: Facial weakness and headache CT DLP: 1138.4 mGycm Automated exposure control for dose reduction was used. FINDINGS: Ventricles have normal size. There is no mass effect nor midline shift. There is no sign of intracran ial hemorrhage. Calvarium is intact. IMPRESSION: NEGATIVE CT SCAN OF THE BRAIN.
== END 2018-11-11 14:44 | disposition home or self-care (01) ==
LOC: EC 13:08
DX: G51.0 Bell's palsy (principal); E11.9 Type 2 diabetes mellitus without complications; G47.30 Sleep apnea, unspecified; Z99.89 Dependence on other enabling machines and devices; F32.9 Major depressive disorder, single episode, unspecified; F41.9 Anxiety disorder, unspecified; F17.200 Nicotine dependence, unspecified, uncomplicated; Z86.19 Personal history of other infectious and parasitic diseases; Z79.899 Other long term (current) drug therapy; Z79.84 Long term (current) use of oral hypoglycemic drugs
CPT/HCPCS: 70450; 99284

== ENCOUNTER → 2018-12-03 | Outpatient (CLI) | payer MEDICARE ==
--- NOTE | 2018-12-04 04:11 | MR ---
EXAMINATION TYPE: MR liver wo/w con DATE OF EXAM: 12/03/2018 COMPARISON: 06/04/2018 MR scan HISTORY: pt has hx of liver mass and cirrhosis - recheck MRI, prev CT, US, XRay and MRI on pacs, 10ml gadavist given CONTRAST: Standard multiplanar, multisequence MRI departmental protocol utilizing 10ml mL intravenous Gadavist gadolinium contrast. FINDINGS: Liver shows no focal defect. The bile ducts are not dilated. There is no evidence of a sple henrik mass. There is no evidence of hepatic mass. Pancreatic duct is not dilated. There is no adrenal mass. Kidneys have normal size and contour. There is no hydronephrosis. There is no sign of retroperitoneal adenopathy. Gallbladder appears normal. There is no gallbladder wall thick ening. Liver margin is slightly irregular that would be consistent with cirrhosis. The contrast image s show heterogeneous liver enhancement without a discrete mass. IMPRESSION: Heterogeneous liver consistent with cirrhosis. No focal liver mass. No dilated ducts. Exam appears no t significantly different than old exam.
== END | disposition home or self-care (01) ==
LOC: RADMRIMAIN 14:40
PROVIDERS: ATTEND Surgery
DX: K74.60 Unspecified cirrhosis of liver (principal); K76.89 Other specified diseases of liver
CPT/HCPCS: 74183; A9585

== ENCOUNTER → 2019-01-04 | Outpatient (CLI) | payer MEDICARE ==
[2019-01-04 11:04] LABS: HCT 46.6 % (39.0-53.0); HGB 16.1 gm/dL (13.0-17.5); MCH 33.8 pg (25.0-35.0); MCHC 34.6 g/dL (31.0-37.0); MCV 97.8 fL (80.0-100.0); Mean Platelet Volume 7.9; Platelet Count 157 k/uL (150-450); RBC 4.77 m/uL (4.30-5.90); RDW 13.3 % (11.5-15.5); WBC 8.7 k/uL (3.8-10.6)
[2019-01-04 17:35] LABS: African American GFR (CKD) 97.1 (60.0-200.0); Albumin 4.3 g/dL (3.80-4.90); Albumin/Globulin Ratio 1.95 (1.60-3.17); Anion Gap 12.9 mmol/L (4.00-12.00); Calcium 9.8 mg/dL (8.7-10.3); Carbon Dioxide 28.1 mmol/L (21.6-31.8); Globulin 2.2 g/dL (1.6-3.3); Non-African American GFR(CKD) 83.8 (60.0-200.0); Potassium 4.3 mmol/L (3.5-5.5); Total Protein 6.5 g/dL (6.2-8.2)
== END | disposition home or self-care (01) ==
LOC: LABWHC1 09:36
PROVIDERS: ATTEND Internal Medicine Gastroenterology
DX: K74.60 Unspecified cirrhosis of liver (principal)
CPT/HCPCS: 36415; 80053; 82105; 85027

== ENCOUNTER → 2019-06-21 | Outpatient (CLI) | payer MEDICARE ==
[2019-06-21 09:35] LABS: Basophils # (A) 0.1 k/uL (0-0.2); Basophils % (A) 1 %; Eosinophils # (A) 0.3 k/uL (0-0.7); Eosinophils % (A) 3 %; HCT 49.2 % (39.0-53.0); HGB 16.6 gm/dL (13.0-17.5); Lymphocytes # (A) 1.6 k/uL (1.0-4.8); Lymphocytes % (A) 20 %; MCH 32.5 pg (25.0-35.0); MCHC 33.8 g/dL (31.0-37.0); MCV 96.2 fL (80.0-100.0); Mean Platelet Volume 8.6; Monocytes # (A) 0.5 k/uL (0-1.0); Monocytes % (A) 7 %; Neutrophils # (A) 5.1 k/uL (1.3-7.7); Neutrophils % (A) 66 %; Platelet Count 169 k/uL (150-450); RBC 5.12 m/uL (4.30-5.90); RDW 13.1 % (11.5-15.5); WBC 7.8 k/uL (3.8-10.6)
[2019-06-21 09:43] LABS: Prothrombin Time 10.6 sec (9.0-12.0)
--- NOTE | 2019-06-21 09:43 | US ---
EXAMINATION TYPE: US abdomen limited DATE OF EXAM: 06/21/2019 COMPARISON: CT dated 05/18/2018 CLINICAL HISTORY: K74.60 Cirrhosis of liver. Hx liver cirrhosis. EXAM MEASUREMENTS: Liver Length: 17.9 cm Gallbladder Wall: 0.2 cm CBD: 0.3 cm Right Kidney: 11.1 x 5.2 x 4.7 cm Pancreas: Appears heterogenous Liver: Upper limits of normal in size. Appears echogenic and heterogenous. Appears lobular. Gallbladder: wnl Evidence for sonographic Tena's sign: neg CBD: wnl Right Kidney: No hydronephrosis or masses seen IMPRESSION: 1. Cirrhotic morphology of the liver. This limits evaluation for hepatic masses although no focal hep atic mass is seen on today's exam. 2. Slight heterogeneity of the echotexture of the pancreas that may be artifactual however correlatio n with serum amylase and lipase is recommended.
[2019-06-21 10:09] LABS: ALT 36 U/L (4-49); AST 45 U/L (17-59); African American GFR (CKD) >90 (>60 ml/min/1.73 sqM); Albumin 4.6 g/dL (3.5-5.0); Alkaline Phosphatase 82 U/L (38-126); Anion Gap 11 mmol/L; Blood Urea Nitrogen 16 mg/dL (9-20); Calcium 9.7 mg/dL (8.4-10.2); Carbon Dioxide 24 mmol/L (22-30); Chloride 106 mmol/L (98-107); Glucose 133 mg/dL (74-99); Non-African American GFR(CKD) >90 (>60 ml/min/1.73 sqM); Potassium 4.6 mmol/L (3.5-5.1); Sodium 141 mmol/L (137-145); Total Bilirubin 0.9 mg/dL (0.2-1.3); Total Protein 8.1 g/dL (6.3-8.2)
[2019-06-21 16:20] LABS: Alpha Fetoprotein, Tumor Mkr <2.5 ng/mL (0.0-7.9)
== END | disposition home or self-care (01) ==
LOC: RADUSWWP 08:39
PROVIDERS: ATTEND Nurse Practitioner
DX: K74.60 Unspecified cirrhosis of liver (principal); Z86.19 Personal history of other infectious and parasitic diseases
CPT/HCPCS: 36415; 76705; 80053; 82105; 85025; 85610; 87522

== ENCOUNTER 2019-11-15 07:00 | Day surgery (SDC) | payer MEDICARE ==
[2019-11-13 13:42] VITALS: BMI 34.9
[~2019-11-15 07:00] MED LIST: LACTATED RINGERS 1,000 ML IV SCH
[2019-11-15] MEDS ORDERED: LIDOCAINE 1% (10MG/ML) FOR IV START INTRADERMA ONE (07:20)
[2019-11-15 07:22] LABS: Glucose,Whole Blood 104 mg/dL (75-99)
[2019-11-15 07:29] VITALS: RESP 16; TEMP 97.1
[2019-11-15] MEDS ORDERED: PROPOFOL 10 MG/ML 20 ML VIAL IV ONE (07:33)
--- NOTE | 2019-11-15 07:55 | P.PCN ---
Date of Procedure: 11/15/19 Procedure(s) Performed: BRIEF HISTORY: Patient is a 58-year-old pleasant white male scheduled for an elective colonoscopy as a part of evaluation of prior history of colon polyps. PROCEDURE PERFORMED: Colonoscopy with snare polypectomy and biopsy. PREOPERATIVE DIAGNOSIS: History of colon polyps. IV sedation per Anesthesia. PROCEDURE: After informed consent was obtained, the patient, was brought into the endoscopy unit. IV sedation was administered by Anesthesia under continuous monitoring. Digital rectal examination was normal. Initially the Olympus CF-160 flexible video colonoscope was then inserted in the rectum, gradually advanced into the cecum without any difficulty. Careful examination was performed as the scope was gradually being withdrawn. Ileocecal valve and the appendiceal orifice were visualized and appeared normal. Prep was excellent. Mucosa of the cecum and terminal a polyp that was removed by cold biopsy. In the hepatic flexure there was a 5 mm and 6 mm, polyps and by snare polypectomy. In the transverse colon there was a 5 mm 2 sessile polyps removed by snare polypectomy. In the descending colon there was a 7 mm an 8 mm polyp removed by snare polypectomy. Rest of the ascending colon, transverse colon, descending colon, sigmoid colon, and rectum appeared normal. Retroflexion was performed in the rectum and no lesions were seen. The patient tolerated the procedure well. IMPRESSION: 2 mm cecal polyp status post removal by cold biopsy 5 mm and 6 mm hepatic flexure colon polyp status post snare polypectomy . 5 mm 2 transverse colon polyp status post polypectomy 7 mm and 8 mm descending colon polyp status post polypectomy RECOMMENDATIONS: Findings of this examination were discussed with the patient as well as his family. He was advised to follow with the biopsy results. If the biopsy shows an adenoma he can have a repeat colonoscopy in 3 years.
[2019-11-15 08:13] VITALS: BP 118/69; PULSE 68
== END 2019-11-15 08:45 | disposition home or self-care (01) ==
LOC: ORWHC2ENDO 07:00
PROVIDERS: ATTEND Internal Medicine Gastroenterology
DX: Z12.11 Encounter for screening for malignant neoplasm of colon (principal); D12.3 Benign neoplasm of transverse colon; D12.4 Benign neoplasm of descending colon; K63.5 Polyp of colon; Z86.010 Personal history of colon polyps; G47.33 Obstructive sleep apnea (adult) (pediatric); F17.200 Nicotine dependence, unspecified, uncomplicated; Z99.89 Dependence on other enabling machines and devices; E11.9 Type 2 diabetes mellitus without complications; Z87.442 Personal history of urinary calculi; G51.0 Bell's palsy; F41.9 Anxiety disorder, unspecified; F32.9 Major depressive disorder, single episode, unspecified; Z86.19 Personal history of other infectious and parasitic diseases; Z79.891 Long term (current) use of opiate analgesic; Z79.84 Long term (current) use of oral hypoglycemic drugs; Z79.899 Other long term (current) drug therapy; Z98.890 Other specified postprocedural states
CPT/HCPCS: 88305; 45380; 45385; J2704

== ENCOUNTER → 2020-01-07 | Outpatient (CLI) | payer MEDICARE ==
--- NOTE | 2020-01-07 08:30 | US ---
EXAMINATION TYPE: US abdomen limited DATE OF EXAM: 01/07/2020 COMPARISON: 06/21/2019 CLINICAL HISTORY: 59-year-old male K74.60 CIRRHOSIS OF LIVER. Hepatitis C. TECHNIQUE: Multiple sonographic images of the abdomen are obtained. FINDINGS: EXAM MEASUREMENTS: Liver Length: 18.8 cm Gallbladder Wall: 0.3 cm CBD: 0.4 cm Right Kidney: 10.8 x 4.5 x 5.7 cm Pancreas: wnl, tail obscured by overlying bowel gas Liver: Heterogeneous, echogenic, mildly enlarged, similar in appearance from previous . Slight nodu lar contour suggestive on some of the images. Gallbladder: wnl. Evidence for sonographic Tena's sign: No CBD: wnl Right Kidney: wnl IMPRESSION: Mild hepatomegaly (18.8 cm) with heterogeneous parenchyma and subtle contour nodularity compatible wi th known cirrhosis. No focal lesion identified by ultrasound.
[2020-01-07 09:06] LABS: Basophils # (A) 0.1 k/uL (0-0.2); Basophils % (A) 1 %; Eosinophils # (A) 0.3 k/uL (0-0.7); Eosinophils % (A) 5 %; HCT 44.1 % (39.0-53.0); HGB 14.5 gm/dL (13.0-17.5); Lymphocytes # (A) 1.5 k/uL (1.0-4.8); Lymphocytes % (A) 20 %; MCH 32.2 pg (25.0-35.0); MCHC 32.8 g/dL (31.0-37.0); MCV 98.3 fL (80.0-100.0); Mean Platelet Volume 8.9; Monocytes # (A) 0.6 k/uL (0-1.0); Monocytes % (A) 8 %; Neutrophils # (A) 4.6 k/uL (1.3-7.7); Neutrophils % (A) 63 %; Platelet Count 131 k/uL (150-450); RBC 4.49 m/uL (4.30-5.90); RDW 12.8 % (11.5-15.5); WBC 7.3 k/uL (3.8-10.6)
[2020-01-07 09:14] LABS: ALT 37 U/L (4-49); AST 43 U/L (17-59); African American GFR (CKD) >90 (>60 ml/min/1.73 sqM); Albumin 4.2 g/dL (3.5-5.0); Alkaline Phosphatase 72 U/L (38-126); Anion Gap 5 mmol/L; Blood Urea Nitrogen 13 mg/dL (9-20); Calcium 9.6 mg/dL (8.4-10.2); Carbon Dioxide 30 mmol/L (22-30); Chloride 106 mmol/L (98-107); Glucose 123 mg/dL (74-99); Non-African American GFR(CKD) >90 (>60 ml/min/1.73 sqM); Potassium 5.4 mmol/L (3.5-5.1); Sodium 141 mmol/L (137-145); Total Bilirubin 0.7 mg/dL (0.2-1.3); Total Protein 7.2 g/dL (6.3-8.2)
[2020-01-07 09:15] LABS: INR 1.1 (<1.2)
== END | disposition home or self-care (01) ==
LOC: RADUSWWP 07:34
PROVIDERS: ATTEND Internal Medicine Gastroenterology
DX: R16.0 Hepatomegaly, not elsewhere classified (principal); K74.60 Unspecified cirrhosis of liver
CPT/HCPCS: 76705; 80053; 82105; 85025; 85610

== ENCOUNTER 2020-02-07 07:25 | Day surgery (SDC) | payer MEDICARE ==
[2020-02-06 09:03] VITALS: BMI 34.9
[2020-02-07] MEDS ORDERED: LIDOCAINE 1% (10MG/ML) FOR IV START INTRADERMA ONE (07:50)
[2020-02-07 08:01] VITALS: TEMP 97.6
[2020-02-07] MEDS ORDERED: PROPOFOL 10 MG/ML 20 ML VIAL IV ONE (08:06)
[2020-02-07] MEDS ORDERED: LIDOCAINE 1% INJ 10MG/ML (20 ML MDV) ONE (08:06)
[2020-02-07 08:11] LABS: Glucose,Whole Blood 139 mg/dL (75-99)
--- NOTE | 2020-02-07 08:18 | P.PCN ---
Date of Procedure: 02/07/20 Procedure(s) Performed: BRIEF HISTORY: Patient is a 59-year-old, pleasant, white male scheduled for an upper endoscopy as a part of screening for esophageal varices. He was diagnosed with cirrhosis that is well compensated.. PROCEDURE PERFORMED: Esophagogastroduodenoscopy with biopsy. PREOPERATIVE DIAGNOSIS: Cirrhosis of the liver screening for esophageal varices. IV sedation per anesthesia. PROCEDURE: After informed consent was obtained, the patient was brought into the endoscopy unit. IV sedation was administered by Anesthesia under continuous monitoring. Initially the Olympus GIF-140 video endoscope was inserted into the mouth. Esophagus intubated without any difficulty. It was gradually advanced into the stomach and duodenum and carefully examined. The bulb and the second part of the duodenum appeared normal. The scope at this time was withdrawn to the stomach, adequately insufflated with air, and upon careful examination, mucosa of the antrum, body had mild diffuse gastritis and biopsies were done from this area. The, cardia and the fundus appeared normal. The scope was then withdrawn into the esophagus. The GE junction was located at 39 cm from the incisors. The esophagus appeared normal. There were no erosions or ulcerations seen , no evidence of esophageal varices and the patient tolerated the procedure well. IMPRESSION: 1. No evidence of esophageal or gastric varices. 2. Mild diffuse gastritis. RECOMMENDATIONS: The findings of this examination were discussed with the patient as well as his family. He was advised to have a repeat upper endoscopy in 2-3 years for screening for esophageal varices.
[2020-02-07 08:23] VITALS: RESP 16
[2020-02-07 08:42] VITALS: BP 132/76; PULSE 71
== END 2020-02-07 08:59 | disposition home or self-care (01) ==
LOC: ORWHC2ENDO 07:25
PROVIDERS: ATTEND Internal Medicine Gastroenterology
DX: K29.50 Unspecified chronic gastritis without bleeding (principal); K74.60 Unspecified cirrhosis of liver; E11.9 Type 2 diabetes mellitus without complications; I10 Essential (primary) hypertension; G47.33 Obstructive sleep apnea (adult) (pediatric); F41.9 Anxiety disorder, unspecified; F32.9 Major depressive disorder, single episode, unspecified; Z79.84 Long term (current) use of oral hypoglycemic drugs; Z79.899 Other long term (current) drug therapy; Z79.891 Long term (current) use of opiate analgesic; Z99.89 Dependence on other enabling machines and devices; Z87.442 Personal history of urinary calculi; Z86.19 Personal history of other infectious and parasitic diseases
CPT/HCPCS: 88305; 43239; J2001; J2704

== ENCOUNTER → 2020-03-18 | Outpatient (CLI) | payer MEDICARE ==
--- NOTE | 2020-03-19 11:35 | MR ---
EXAMINATION TYPE: MR iac wo/w con DATE OF EXAM: 03/18/2020 COMPARISON: NONE HISTORY: Hearing loss in left ear TECHNIQUE: Multiplanar, multisequence images of the brain and brainstem is performed without and with IV contras t, utilizing 10ml mL intravenous Gadavist . Acoustic nerve disorder protocol. FINDINGS: Diffusion weighted images demonstrate no evidence of a recent infarct or other diffusion ab normality. There is no worrisome extra-axial fluid collection mild ventricular and sulcal prominence . Occasional focus of T2 hyperintensity scattered throughout the white matter bilaterally. Less than 5 lesions are seen. Largest is a 6 mm subcortical posterior left frontal lesion axial image 20 at lev el of andrade radiata. Midline structures demonstrate normal morphology. The craniocervical junction appears within normal limits. Normal vascular flow voids are present.. Suspect roughly 1.8 x 1.5 cm small arachnoid cyst po sterior aspect of the central left posterior fossa axial image 8. The visualized sinuses are clear an d the globes are intact. No suspicious fluid signal in the bilateral mastoid air cells. The vestibulocochlear complexes are sy mmetric and felt within normal limits. There is no suspicious enhancing cerebellopontine angle mass i dentified bilaterally. IMPRESSION: 1. No abnormal findings to account for patient's symptoms of left-sided hearing loss. 2. Background mild diffuse age-related cerebral atrophy and mild nonspecific white matter changes pre sumed on the basis of product of chronic small vessel ischemic change in patient of this age.
== END | disposition home or self-care (01) ==
LOC: RADMRIMAIN 17:54
PROVIDERS: ATTEND Otolaryngology
DX: H91.90 Unspecified hearing loss, unspecified ear (principal)
CPT/HCPCS: 70553; A9585

== ENCOUNTER 2020-04-13 08:03 | Emergency (ER) | payer MEDICARE ==
[2020-04-13 08:08] VITALS: TEMP 98
[2020-04-13] MEDS ORDERED: MORPHINE SULFATE 4 MG/ML SYRINGE IV STA (08:16)
[2020-04-13] MEDS ORDERED: KETOROLAC 15 MG/ML 1 ML VIAL IVP STA (08:16)
[2020-04-13] MEDS ORDERED: SODIUM CHLORIDE 0.9% 1,000 ML IV STA (08:16)
--- NOTE | 2020-04-13 08:19 | ED ---
General Adult HPI - General Chief complaint: Back Pain/Injury Stated complaint: Poss Kidney Stones, Back Pain Time Seen by Provider: 04/13/20 08:10 Source: patient Mode of arrival: ambulatory Limitations: no limitations - History of Present Illness Initial comments: Dictation was produced using [employer] dictation software. please excuse any grammatical, word or spelling errors. This patient was cared for during a federal and state declared state of emergency secondary to Covid 19 Chief Complaint: 59-year-old male with past medical history of back surgery and kidney stones presents today with back pain. History of Present Illness: Patient 59-year-old male he is has history of chronic back pain. Patient is status post back surgery performed several months ago by Dr. Grullon. Patient reports that he woke up this morning with severe back pain. Patient is not sure if it's from his usual back pain or if it's from kidney stones. States the pain is constant and located to the right paraspinal musculature in the lumbar area radiates down to his right gluteus area. Patient denies its colicky in nature. Patient has had 4-5 kidney stones in the past. Patient thinks that this is more of a kidney stone because of any difficulty urinating. He did notany blood in his urine. Denies any saddle anesthesia. No lower extremity symptoms. Denies any nausea. Patient states it's significant worse with movements. The ROS documented in this emergency department record has been reviewed and confirmed by me. Those systems with pertinent positive or negative responses have been documented in the HPI. All other systems are other negative and/or noncontributory. PHYSICAL EXAM: General Impression: Alert and oriented x3, acute distress secondary to pain HEENT: Normocephalic atraumatic, extra-ocular movements intact, pupils equal and reactive to light bilaterally, mucous membranes moist. Cardiovascular: Heart regular rate and rhythm Chest: Able to complete full sentences, no retractions, no tachypnea Abdomen: abdomen soft, non-tender, non-distended, no organomegaly Musculoskeletal: Pulses present and equal in all extremities, no peripheral edema, midline lower back scar, boggy paraspinal muscular tissue and right soft tissues Motor: no focal deficits noted Neurological: CN II-XII grossly intact, no focal motor or sensory deficits noted, no saddle anesthesia, lower extremity sensory functions intact. Skin: Intact with no visualized rashes Psych: Normal affect and mood ED course: 72-year-old male presents with back pain. He has history of chronic back pain and kidney stones. Patient appears to be in severe distress. He reports symptoms of urinary retention which is typical of what he says is his kidney stone symptoms. Vital signs upon arrival are within acceptable limits. Patient given analgesics. Laboratory evaluation obtained. CBC, coag panel, metabolic panel is unremarkable. Computed tomography scan of abdomen and pelvis was obtained showing nonobstructive renal calculi bilaterally. Noted at L1-L2 level. Patient given multiple doses of analgesics. He states that his pain is improved. He has an appointment with marketing graphics specialist tomorrow. Patient is agreeable to discharge. His pain is improved. - Related Data Home Medications Medication Instructions Recorded Confirmed Citalopram Hydrobromide 20 mg PO QAM 09/28/17 04/13/20 [Citalopram HBr] Cetirizine HCl 10 mg PO HS 11/13/19 04/13/20 lisinopriL [Zestril] 5 mg PO QAM 11/13/19 04/13/20 sitaGLIPtin [Januvia] 100 mg PO DAILY 11/13/19 04/13/20 metFORMIN HCL 1,000 mg PO BID 04/13/20 04/13/20 Allergies Allergy/AdvReac Type Severity Reaction Status Date / Time No Known Allergies Allergy Verified 04/13/20 09:50 Review of Systems ROS Statement: Those systems with pertinent positive or pertinent negative responses have been documented in the HPI. ROS Other: All systems not noted in ROS Statement are negative. Past Medical History Past Medical History: Diabetes Mellitus, Hearing Disorder / Deafness, Liver Disease, Musculoskeletal Disorder, Sleep Apnea/CPAP/BIPAP Additional Past Medical History / Comment(s): HX kidney stones, hep c-treated, has Cirrhosis, DDD, uses cpap, Russo's Palsy, Last steroid Inj 09/2019. Decreased hearing Lt ear. History of Any Multi-Drug Resistant Organisms: None Reported Past Surgical History: Back Surgery, Orthopedic Surgery Additional Past Surgical History / Comment(s): 12/24/14 posterior lumbar decompression, fusion L2-3-4, L4-L5. transforaminal lumbar interbody fusion. lithotripsy, BILAT CTR, RT 4TH TRIGGER FINGER RELEASE, 3 trigger fingers released on left hand, Colonoscopy, SPINAL INJECTIONS. Past Anesthesia/Blood Transfusion Reactions: Previous Problems w/ Anesthesia Additional Past Anesthesia/Blood Transfusion Reaction / Comment(s): IV in arm very painful w/ last colonoscopy 10/2019. Past Psychological History: Anxiety, Depression Smoking Status: Current every day smoker Past Alcohol Use History: None Reported Past Drug Use History: None Reported - Past Family History Father Additional Family Medical History / Comment(s): AROUND AGE 70 UNK HX Mother Family Medical History: Cancer, Osteoarthritis (OA) Additional Family Medical History / Comment(s): SKIN CANCER MOM IS 81 YEARS OLD General Exam Limitations: no limitations Course Vital Signs 04/13/20 08:06 Temperature 98 F Pulse Rate 89 Respiratory 18 Rate Blood Pressure 129/83 O2 Sat by Pulse 98 Oximetry Medical Decision Making - Lab Data Result diagrams: 04/13/20 08:32 04/13/20 08:32 Lab Results 04/13/20 04/13/20 04/13/20 Range/Units 08:32 08:32 08:32 WBC 9.9 (3.8-10.6) k/uL RBC 4.60 (4.30-5.90) m/uL Hgb 15.6 (13.0-17.5) gm/dL Hct 44.9 (39.0-53.0) % MCV 97.5 (80.0-100.0) fL MCH 34.0 (25.0-35.0) pg MCHC 34.9 (31.0-37.0) g/dL RDW 12.3 (11.5-15.5) % Plt Count 111 L (150-450) k/uL MPV 8.6 Neutrophils % 65 % Lymphocytes % 19 % Monocytes % 7 % Eosinophils % 4 % Basophils % 1 % Neutrophils # 6.4 (1.3-7.7) k/uL Lymphocytes # 1.9 (1.0-4.8) k/uL Monocytes # 0.7 (0-1.0) k/uL Eosinophils # 0.4 (0-0.7) k/uL Basophils # 0.1 (0-0.2) k/uL PT 10.3 (9.0-12.0) sec INR 1.0 (<1.2) APTT 24.8 (22.0-30.0) sec Sodium 137 (137-145) mmol/L Potassium 4.3 (3.5-5.1) mmol/L Chloride 103 (98-107) mmol/L Carbon Dioxide 26 (22-30) mmol/L Anion Gap 8 mmol/L BUN 14 (9-20) mg/dL Creatinine 0.76 (0.66-1.25) mg/dL Est GFR (CKD-EPI)AfAm >90 (>60 ml/min/1.73 sqM) Est GFR (CKD-EPI)NonAf >90 (>60 ml/min/1.73 sqM) Glucose 146 H (74-99) mg/dL Calcium 9.8 (8.4-10.2) mg/dL Disposition Clinical Impression: Back pain Disposition: HOME SELF-CARE Condition: Good Instructions (If sedation given, give patient instructions): Acute Low Back Pain (ED) Additional Instructions: Please return to the emergency department if her pain is getting worse or if your unable to urinate in the next 6 hours. Is patient prescribed a controlled substance at d/c from ED?: No Referrals: Desiree Grullon DO [Doctor of Osteopathic Medicine] - 1-2 days Time of Disposition: 11:17
[2020-04-13 08:43] LABS: Basophils # (A) 0.1 k/uL (0-0.2); Basophils % (A) 1 %; Eosinophils # (A) 0.4 k/uL (0-0.7); Eosinophils % (A) 4 %; HCT 44.9 % (39.0-53.0); HGB 15.6 gm/dL (13.0-17.5); Lymphocytes # (A) 1.9 k/uL (1.0-4.8); Lymphocytes % (A) 19 %; MCHC 34.9 g/dL (31.0-37.0); MCV 97.5 fL (80.0-100.0); Mean Platelet Volume 8.6; Monocytes # (A) 0.7 k/uL (0-1.0); Monocytes % (A) 7 %; Neutrophils # (A) 6.4 k/uL (1.3-7.7); Neutrophils % (A) 65 %; Platelet Count 111 k/uL (150-450); RDW 12.3 % (11.5-15.5); WBC 9.9 k/uL (3.8-10.6)
[2020-04-13 08:53] LABS: Partial Thromboplastin Time 24.8 sec (22.0-30.0); Prothrombin Time 10.3 sec (9.0-12.0)
[2020-04-13 08:56] LABS: African American GFR (CKD) >90 (>60 ml/min/1.73 sqM); Anion Gap 8 mmol/L; Blood Urea Nitrogen 14 mg/dL (9-20); Calcium 9.8 mg/dL (8.4-10.2); Carbon Dioxide 26 mmol/L (22-30); Chloride 103 mmol/L (98-107); Glucose 146 mg/dL (74-99); Non-African American GFR(CKD) >90 (>60 ml/min/1.73 sqM); Potassium 4.3 mmol/L (3.5-5.1); Sodium 137 mmol/L (137-145)
[2020-04-13] MEDS ORDERED: HYDROmorphone 0.5 MG/0.5 ML SYRINGE IVP PRN (09:03)
--- NOTE | 2020-04-13 09:16 | CT ---
EXAMINATION TYPE: CT abdomen pelvis wo con DATE OF EXAM: 04/13/2020 COMPARISON: 05/18/2018 HISTORY: 59-year-old male back pain, urinary retention, possible kidney stone CT DLP: 1126.4 mGycm. Automated exposure control for dose reduction was used. TECHNIQUE: Contiguous axial scanning of the abdomen and pelvis without IV contrast. Coronal and sagit mari reconstructions performed. FINDINGS: Heart normal size without pericardial effusion. Lung bases clear without pleural effusion. Nodular hepatic contour suggesting underlying cirrhosis. Suspect a degree of fatty infiltration given low density as well. Gallbladder mildly hydropic at 4.5 cm wide open without any surrounding inflammation. Adrenal glands and pancreas show no gross abnormal by noncontrast CT. The spleen is mildly enlarged at 14.4 cm with an anterior splenule. A couple nonobstructive left renal calculi measuring up to 5 mm and one on the right measuring 4 mm. No hydronephrosis. No dilated small bowel, free fluid, or free air. Scattered nonenlarged lymph nodes in the upper abdomen gastrohepatic ligament and jonathan hepatic regio n measuring up to 8 mm. No retroperitoneal lymphadenopathy. Normal appendix. Mild to moderate scattered stool. No pericolonic inflammatory change. Mildly redunda nt sigmoid colon. Mild atherosclerotic calcifications infrarenal abdominal aorta and common iliac arteries. Bladder partially distended. Punctate layering calculi are present dependently within the gallbladder measuring up to 4 mm. Central prostatic calcifications. Prostate gland measures 4.7 cm wide. No abno rmal fluid collection in the pelvis or pelvic lymphadenopathy. Bones: Posterior lumbar fusion hardware from L2 through L5 levels. Moderate to advanced degenerative disc disease L5-S1. Diffuse disc bulge noted above the fusion as well as at L1-L2 possibly causing mi ld to moderate spinal canal stenosis. T10 limbus vertebra incidentally noted. IMPRESSION: 1. Nonobstructive renal calculi measuring up to 5 mm. No hydronephrosis or ureteral calculus seen. 2. Punctate layering calculi in the bladder measuring up to 4 mm. 3. Cirrhotic morphology of the liver. Mild splenomegaly of 14.4 cm. Clinically correlate. 4. Mildly hydropic gallbladder 4.5 cm wide. No surrounding inflammation. Probably related to fasting state. Clinically correlate. 5. L2-L5 posterior lumbar fusion. There seems to be a disc bulge above the fusion at L1-L2 that coul d contribute to a mild to moderate spinal canal stenosis.
[2020-04-13] MEDS ORDERED: HYDROmorphone 1 MG/ML 1 ML SYRINGE IVP STA (10:09)
[2020-04-13 11:29] VITALS: BP 144/76; PULSE 86; RESP 16
[2020-04-13 11:43] LABS: Appearance,Urine Clear (Clear); Bacteria,Urine Rare /hpf; Bilirubin,Urine Negative (Negative); Blood,Urine Negative (Negative); Color,Urine Yellow; Glucose,Urine (UA) Negative (Negative); Ketones,Urine Negative (Negative); Leukocyte Esterase,Urine Negative (Negative); Mucus,Urine Many /hpf; Nitrite,Urine Negative (Negative); Protein,Urine 1+ (Negative); RBC,Urine 2 /hpf (0-5); Specific Gravity,Urine 1.031 (1.001-1.035); WBC,Urine 2 /hpf (0-5)
== END 2020-04-13 11:28 | disposition home or self-care (01) ==
LOC: EC 08:03
DX: M54.5 Low back pain (principal); N20.0 Calculus of kidney; E11.9 Type 2 diabetes mellitus without complications; G47.30 Sleep apnea, unspecified; H91.90 Unspecified hearing loss, unspecified ear; F41.9 Anxiety disorder, unspecified; F32.9 Major depressive disorder, single episode, unspecified; F17.200 Nicotine dependence, unspecified, uncomplicated; Z79.899 Other long term (current) drug therapy; Z79.84 Long term (current) use of oral hypoglycemic drugs; Z87.442 Personal history of urinary calculi; Z99.89 Dependence on other enabling machines and devices; Z98.1 Arthrodesis status
CPT/HCPCS: 51798; 36415; 80048; 85025; 85610; 85730; 81001; 74176; 99284; 96374; 96375 ×2; 96376; 96361 ×3; J2270; J1170 ×2; J1885

== ENCOUNTER → 2020-05-20 | Outpatient (CLI) | payer MEDICARE ==
[2020-05-20 10:24] VITALS: BP 141/88; PULSE 96; RESP 16; TEMP 98.6
--- NOTE | 2020-05-20 11:29 | P.CONS ---
History of Present Illness - Reason for Consult Consult date: 05/20/20 - Chief Complaint Lower back pain - History of Present Illness This is a 59-year-old gentleman with history of lumbar fusion and chronic lower back pain. The pain radiates occasionally to the lower extremities in no specific radicular distribution. The patient denies any weakness in the lower extremities or any bowel or bladder dysfunction. This pain bothers him significantly at night for which he takes one pill of Percocet. The patient has been getting interventional pain procedures by Dr. Mckeon including interlaminar and transforaminal epidural steroid injections, caudal epidural st eroid injection, medial branch blocks and medial branch RFA. The patient received his last medial branch RFA in September 2019. These injections have been giving him some relief of pain for short term however the patient is okay with this approach. He did request some information about a more lasting treatments which I mentioned to him as spinal cord stimulation and intrathecal opioid infusion. The patient does not feel comfortable with opioid infusion however he would like more information about the spinal cord stimulation. Past Medical History Past Medical History: Diabetes Mellitus, Hearing Disorder / Deafness, Liver Disease, Musculoskeletal Disorder, Skin Disorder, Sleep Apnea/CPAP/BIPAP Additional Past Medical History / Comment(s): HX kidney stones, hep c - has treated, has Cirrhosis, DDD, NT LLE; uses cpap, Russo's Palsy. Decreased hearing Lt ear. Sl eczema face. History of Any Multi-Drug Resistant Organisms: None Reported Past Surgical History: Back Surgery, Orthopedic Surgery Additional Past Surgical History / Comment(s): 12/24/14 posterior lumbar decompression, fusion L2-3-4, L4-L5,transforaminal lumbar interbody fusion. lithotripsy, BILAT CTR, RT 4TH TRIGGER FINGER RELEASE, 3 trigger fingers released on left hand, Colonoscopy, EGD, SPINAL INJECTIONS. Past Anesthesia/Blood Transfusion Reactions: Previous Problems w/ Anesthesia Additional Past Anesthesia/Blood Transfusion Reaction / Comm: IV Rx very painful in arm w/ last colonoscopy 10/2019. Past Psychological History: Anxiety, Depression Additional Psychological History / Comment(s): CELEXA. Smoking Status: Current every day smoker Past Alcohol Use History: None Reported Additional Past Alcohol Use History / Comment(s): STARTED SMOKING AT AGE 17 - smokes 1/2 ppd est Past Drug Use History: None Reported Additional Drug Use History / Comment(s): NO DRUG USE IN 30 YEARS - Past Family History Father Additional Family Medical History / Comment(s): AROUND AGE 70 UNK HX Mother Family Medical History: Cancer, Osteoarthritis (OA) Additional Family Medical History / Comment(s): SKIN CANCER MOM IS 81 YEARS OLD Medications and Allergies Home Medications Medication Instructions Recorded Confirmed Type Citalopram Hydrobromide 20 mg PO QAM 09/28/17 05/18/20 History [Citalopram HBr] Cetirizine HCl 10 mg PO HS 11/13/19 05/18/20 History lisinopriL [Zestril] 5 mg PO QAM 11/13/19 05/18/20 History sitaGLIPtin [Januvia] 100 mg PO DAILY 11/13/19 05/18/20 History metFORMIN HCL 1,000 mg PO BID 04/13/20 05/18/20 History Cyclobenzaprine [Flexeril] 10 mg PO TID PRN 05/18/20 05/18/20 History oxyCODONE-APAP 10-325MG [Percocet 1 tab PO TID PRN 05/18/20 05/18/20 History 10-325 mg] Allergies Allergy/AdvReac Type Severity Reaction Status Date / Time No Known Allergies Allergy Verified 05/18/20 14:53 Physical Exam Vitals: Vital Signs Temp Pulse Resp BP Pulse Ox 05/20/20 10:19 98.6 F 96 16 141/88 96 - Constitutional General appearance: obese - EENT Eyes: PERRLA - Neurologic Neuro exam of the lower extremities showed areflexia bilaterally, normal muscle strength bilaterally, straight leg raising test normal bilaterally. Positive tenderness in the lumbar paravertebral musculature bilaterally. There is a well-healed scar from his previous back surgery Neurologic: CNII-XII intact Results Results: Lumbar spine MRI done in March 2020 showed a progressing left paracentral disc protrusion compressing the S1 nerve root with moderate canal stenosis and moderate to severe bilateral foraminal stenosis at this level. There is also central disc extrusion at L1-L2 level compressing the L2 nerve roots to severe canal stenosis and moderate to severe bilateral foraminal stenosis. There are postoperative changes at the L2-3, L3 4, and L4 5 levels with right foraminal disc osteophyte complex abutting the right exiting L4 nerve root at the L4 5 level. It also showed CSF equivalent fluid collection at the posterior paraspinal soft tissues from L2-3 through L4 5 with the possibility of pseudo-meningocele suggested by the radiologist. Assessment and Plan Plan: This is a 59-year-old gentleman with the following diagnoses: Lumbar postlaminectomy pain syndrome Lumbar stenosis Lumbar neuroforaminal stenosis Possible pseudomeningocele Lumbar spondylosis without myelopathy The patient has been getting good relief of pain after intervention pain procedures especially lumbar medial branch RFA. We will schedule the patient to have lumbar bilateral medial branch RFA for the L4 5 and L5-S1 levels. The patient also may benefit from a trial of spinal cord stimulation in the future. I thank you for the referral
== END | disposition home or self-care (01) ==
LOC: PNWHC3 10:06
PROVIDERS: ATTEND Anesthesiology
DX: G89.4 Chronic pain syndrome (principal); M48.061 Spinal stenosis, lumbar region without neurogenic claudication; M47.816 Spondylosis without myelopathy or radiculopathy, lumbar region; E11.9 Type 2 diabetes mellitus without complications; G47.33 Obstructive sleep apnea (adult) (pediatric); Z79.84 Long term (current) use of oral hypoglycemic drugs; Z79.899 Other long term (current) drug therapy; Z79.2 Long term (current) use of antibiotics; Z99.89 Dependence on other enabling machines and devices
CPT/HCPCS: 99211

== ENCOUNTER → 2020-06-15 | Outpatient (CLI) | payer MEDICARE ==
[2020-06-15 14:06] VITALS: BP 160/95; PULSE 102; RESP 16; TEMP 98.9
--- NOTE | 2020-06-15 14:22 | P.PN ---
Subjective Progress Note Date: 06/15/20 This is a 59-year-old gentleman with history of chronic lower back pain with radiation to the lower extremities bilaterally down to the feet. The patient had multiple surgeries on the lumbar spine. He received lumbar RFA by Dr. Mckeon which gave him 90% of pain relief lasting for more than 6 months as he states. He does have lumbar fusion segment from L2 to L5. Patient denies new-onset weakness, bowel/bladder incontinence, or any other signs or symptoms of cauda equina syndrome. There are no signs of acute intoxication, and no indications of medication diversion or overuse. In addition to above, 13-point review of systems is also negative for chest pain , shortness of breath, changes in vision, changes in hearing, new onset weakness, abdominal pain, diarrhea, extreme fatigue, malaise, fever, skin changes, homicidal or suicidal ideation, or bowel or bladder incontinence. Vital Signs: Reviewed in EMR Gen: AAOx3, NAD HEENT: PERRLA,hearing grossly normal Pulm: resp unlabored Neck: supple, trachea midline Neuro exam of the lower extremities: Normal muscle strength bilaterally Straight leg raising test: Dileep's test: Range of motion of the lumbar spine: Facet loading test: Tenderness in the paravertebral musculature: Positive tenderness in the lumbar paravertebral musculature bilaterally. Neuro: CN II-XII grossly intact, Imaging: Reviewed in EMR/chart Assessment: Failed back surgery syndrome Lumbar DDD Lumbar spondylosis without myelopathy Plan: 1. Explanation: Opioid and psychological risk scores were reviewed. Diagnoses, prognoses, and multiple treatment options including but not limited to physical therapy, interventional therapies, adjuvant medical therapies, narcotic medication therapies, and surgery were discussed with the patient and all questions were answered to the patient's satisfaction. 2. Opioid agreement: Signed with the patient and the patient is warned not to use opioids while driving or before driving and not to combine opioids with benzodiazepines or alcohol. 3. Counseling: The patient was counseled extensively on SMOKING CESSATION, BODY MASS INDEX, EXERCISE. Specifically, the patient was instructed regarding the importance of smoking cessation, obesity, and exercise in the context of both chronic pain and overall health. 4. Procedures: The patient may benefit from getting caudal epidural steroid injection under fluoroscopic guidance with loss of adhesions. In the future also he might benefit from getting lumbar medial branch RFA above the fusion level and around L1-L2 level especially with history of very good response to these procedures previously. 5. Consultations: None 6. Investigations: None 7. Medications: None 8. Disposition: We'll proceed with caudal epidural steroid injection with loss of adhesions as soon as possible. There is no good response to this procedure then we'll plan on doing lumbar medial branch RFA above the fusion level. 9. Maps were reviewed and were appropriate. Objective - Vital Signs Vital signs: Vital Signs Temp 98.9 F 06/15/20 14:02 Pulse 102 H 06/15/20 14:02 Resp 16 06/15/20 14:02 BP 160/95 06/15/20 14:02 Pulse Ox 96 06/15/20 14:02
== END | disposition home or self-care (01) ==
LOC: PNWHC3 13:47
PROVIDERS: ATTEND Anesthesiology
DX: M96.1 Postlaminectomy syndrome, not elsewhere classified (principal); M51.36 Other intervertebral disc degeneration, lumbar region; M47.816 Spondylosis without myelopathy or radiculopathy, lumbar region; Z98.1 Arthrodesis status
CPT/HCPCS: 99211

== ENCOUNTER 2020-06-23 09:09 | Day surgery (SDC) | payer MEDICARE ==
[2020-06-23 09:38] VITALS: TEMP 98.2
[2020-06-23] MEDS: LACTATED RINGERS 1,000 ML IV SCH ×2 (09:47→09:59)
[2020-06-23] MEDS ORDERED: LIDOCAINE 1% (10MG/ML) FOR IV START INTRADERMA ONE (09:48)
[2020-06-23 09:50] LABS: Glucose,Whole Blood 175 mg/dL (75-99)
[2020-06-23] MEDS ORDERED: fentaNYL (PF) 50 MCG/ML 2 ML AMP ONE (10:00)
[2020-06-23] MEDS ORDERED: methylPREDNISolone ACETATE 40 MG/ML 1 ML VIAL ONE (10:00)
[2020-06-23] MEDS ORDERED: IOPAMIDOL M200 10 ML VIAL ONE (10:00)
[2020-06-23] MEDS ORDERED: MIDAZOLAM 2 MG/2 ML VIAL ONE (10:00)
--- NOTE | 2020-06-23 10:20 | P.PCN ---
Date of Procedure: 06/23/20 Procedure(s) Performed: PREOP DIAGNOSIS: 1- Lumbar postlaminectomy syndrome. 2-lumbar spinal stenosis POSTOP DIAGNOSIS:1- Lumbar postlaminectomy syndrome. 2-lumbar spinal stenosis PROCEDURE: 1-Caudal epidural steroid injection with epidurolysis and epidurogram under fluoroscopic guidance. (Fluoroscopy images available in the radiology Department ) 2-caudal epidurogram. ANESTHESIA: Local with 1% lidocaine 3 ml ,and moderate sedation, with Versed 2 mg and fentanyl 100 g. EBL: Minimal. PROCEDURE INDICATION: The patient with post-laminectomy syndrome with low back pain and radiculopathy radiating down in both legs, here for a caudal epidural steroid injection with epidurolysis. PROCEDURE DESCRIPTION: The patient was seen and identified in the preoperative area. Risks, benefits, complications, and alternatives were discussed with the patient. The patient agreed to proceed with the procedure and signed the consent. IV was started, and vital signs were stable. Patient was taken to the OR and time out was completed. The patient was placed in the prone position on procedure table and a pillow was placed under the abdomen to reduce lumbar lordosis. The lumbosacral area was prepped and draped in the usual sterile fashion. Vital signs were closely monitored during the procedure. lateral view and the anterior-posterior plates of the sacrum were identified with infiltration of the area overlying the sacral hiatus with 1% lidocaine .A 17 gauge RK epidural needle was used to advance through the sacral hiatus into the caudal epidural space. isoview 200 dye. 2cc was injected and the position of the needle was verified to be in the midline. A Racz catheter was introduced into the epidural space and was advanced towards the L5-S1 interspace under direct fluoroscopic guidance. Multiple passes were made with the catheter for lysis of epidural adhesions. Depo-Medrol 40 mg with 3ml of preservative free Lidocaine 1% and 5 ml of preservative free normal saline was injected slowly. Additional spread was seen to L4 under fluoroscopy. The needle and the catheter were withdrawn intact. EPIDUROGRAM: IsoView 200 mg dye 2 ml was injected with spread of the dye into the caudal epidural space and with spread cutoff at L5 prior to epidurolysis. Post epidurolysis dye 2 ml was injected and spread was seen to L4-5 There was further spread of the solution together with the dye above the L4 COMPLICATIONS: None. DISPOSITION / PLANS: The patient was placed in a supine position and transferred to the recovery area in a stable condition for observation and was discharged from the recovery room after meeting discharge criteria. Home discharge instructions given to the patient by the staff. The patient was reexamined prior to discharge. The patient will schedule a follow up in the clinic in 2-4 weeks.
[2020-06-23] MEDS ORDERED: IV FLUID CONTINUATION 1,000 ML IV ONE (10:23)
[2020-06-23 10:26] VITALS: RESP 16
[2020-06-23 10:51] VITALS: BP 140/59; PULSE 87
--- NOTE | 2020-06-23 12:10 | FL ---
Fluoroscopy INDICATION: Pain FINDINGS: Fluoroscopy time: 4 seconds. Images obtained: 3. IMPRESSIONS: 1. Documentation of fluoroscopy.
== END 2020-06-23 11:02 | disposition home or self-care (01) ==
LOC: ORPAIN 09:09
PROVIDERS: ATTEND Specialist
DX: M96.1 Postlaminectomy syndrome, not elsewhere classified (principal); M48.061 Spinal stenosis, lumbar region without neurogenic claudication; E11.9 Type 2 diabetes mellitus without complications
CPT/HCPCS: 62264; J2250; J1030; J3010; Q9966; 99152

== ENCOUNTER → 2020-07-06 | Outpatient (CLI) | payer MEDICARE ==
[2020-07-06 11:14] VITALS: BP 139/76; PULSE 89; RESP 16; TEMP 98.1
--- NOTE | 2020-07-06 11:42 | P.PN ---
Subjective Progress Note Date: 07/06/20 Principal diagnosis: Lumbar back pain, bilateral lower extremity pain, and hip pain Mr. Purvis is a 59-year-old pleasant male came to the [facility] pain clinic for follow-up visit. Patient had caudal epidural steroid injection which helped tremendous more than 80% pain relief in his hip area and lower extremity pain. He still complaining low back pain which is aching, throbbing type of pain. Sometimes his pain radiating to lower extremity causing numbness and ting ling sensation. He rated his pain 7 out of 10 in severity. Activities making his pain worse. Pain medications, and intervention procedures are helping him area. Denied any side effects with the medications. Sometimes he has difficulty getting sleep secondary to pain. Overall his activities include after the interventional procedures. Denied any medication side effects. Denied any red flag symptoms at this time related to pain. 13 point review of systems negative except as mentioned history of present illness Objective - Vital Signs Vital signs: Vital Signs Temp 98.1 F 07/06/20 11:12 Pulse 89 07/06/20 11:12 Resp 16 07/06/20 11:12 BP 139/76 07/06/20 11:12 Pulse Ox 97 07/06/20 11:12 - Exam General: well-developed, well-nourished, no acute distress. HEENT: Normocephalic, atraumatic. Neck: supple, trachea midline CVS: Regular rate and rhythm Pulmonary : Not in labored breathing. Neurologic: No noticeable focal neurological deficits. Psychiatric: Appropriate mood and affect. Musculoskeletal: Upper extremity : Normal strength and range of motion, and sensation grossly intact.. Lower extremity: Normal strength and decreased range of motion secondary to pain. Sensation grossly intact Lumbar spine range of motion: Decreased in flexion, extension, and lateral bending secondary to pain Lumbar paraspinal muscle tenderness: Positive Lumbar facet loading test: Positive Strait leg raising test: Not done secondary to pain Sacroiliac joint tenderness: Positive Sacroiliac joint compression test: Positive Thigh thrust test: Positive Fabere's test/Dileep test: Positive Lumbar spine trigger points : Positive, healed lumbar scar positive Cervical paravertebral tenderness: Positive. Cervical facet load test: Positive. cervical Spurling test: negative Multiple trigger points positive over cervical, and upper thoracic area. Assessment and Plan Assessment: #1 lumbar post laminectomy syndrome #2 lumbar spondylosis without myelopathy #3 lumbar radiculopathy #4 sacroiliac joint dysfunction #5 myofascial pain syndrome, and chronic pain syndrome Plan: 1. Diagnoses, prognoses, and multiple treatment options including but not limited to physical therapy, interventional therapies, adjunct medical therapies, and surgical options were discussed with the patient and all questions were answered to the patients satisfaction. 2. Treatment plan agreement: Patient was discussed regarding the medication side effects, and complications associated medications. 3. The patient was counseled on importance of regular exercise in controlling chronic pain as well as in terms of overall well-being. Patient counseled regarding the importance of regular exercise, and minimizing the intake of carbohydrates, and process foods which may help in decreasing the inflammation, and helps overall well-being. Patient counseled regarding smoking association with chronic pain, worsening inflammation, effects of smoking on liver and medication metabolism. Patient encouraged to stop smoking, patient was given information regarding smoking cessation program. 4. Consultations: Continue physical therapy exercises at home 5. Investigations: MAPS- appropriate , and urine drug test- not done. 6. Diagnostic studies: None. 7. Interventional procedures: Bilateral lumbar L3-L4, L4-L5, and L5-S1 medial branch block 8. Medications: None from the pain clinic 9. Morphine milligram equivalent (MME) doses: 0 from the pain clinic. 10. Durable Medical Equipment (DME) : TENS units. 11. Disposition: Scheduled for follow-up in 4 weeks duration. I have spent greater than 25 minutes with this patient. Including but not limited to: foet-[id number] time, on physical examination, electronic medical record review, counseling, and documentation. Note: Patient was given information regarding spinal cord stimulation, and had a lengthy discussion with the procedure, and complications, and advantageous. Patient understood and answered questions. In future clinic once patient reviewed then plan to discuss more if patient have any questions.
== END ==
LOC: PNWHC3 10:56
DX: M47.26 Other spondylosis with radiculopathy, lumbar region (principal); M96.1 Postlaminectomy syndrome, not elsewhere classified; M79.18 Myalgia, other site; G89.4 Chronic pain syndrome
CPT/HCPCS: 99211

== ENCOUNTER 2020-08-07 08:48 | Day surgery (SDC) | payer MEDICARE ==
[2020-08-04 13:09] VITALS: BMI 35.7
[2020-08-07 09:30] VITALS: RESP 16; TEMP 98.2
[2020-08-07] MEDS ORDERED: LACTATED RINGERS 1,000 ML IV ONE (09:39)
[2020-08-07] MEDS ORDERED: LIDOCAINE 1% (10MG/ML) FOR IV START INTRADERMA ONE (09:39)
[2020-08-07 09:40] LABS: Glucose,Whole Blood 139 mg/dL (75-99)
[2020-08-07] MEDS ORDERED: TRIAMCINOLONE ACETONIDE 40 MG/ML 1 ML VIAL ONE (09:58)
[2020-08-07] MEDS ORDERED: IOPAMIDOL M200 10 ML VIAL ONE (09:58)
[2020-08-07] MEDS ORDERED: MIDAZOLAM 2 MG/2 ML VIAL ONE (09:58)
[2020-08-07] MEDS ORDERED: ROPIVACAINE 5MG/ML 20ML VIAL ONE (09:58)
[2020-08-07] MEDS ORDERED: fentaNYL (PF) 50 MCG/ML 2 ML AMP ONE (09:58)
--- NOTE | 2020-08-07 10:15 | P.PCN ---
Date of Procedure: 08/07/20 Description of Procedure: PREOPERATIVE DIAGNOSIS : Lumbar spondylosis with Facet Arthropathy without myelopathy POSTOPERATIVE DIAGNOSIS: same PROCEDURE: irst Diagnostic lumbar medial branch block with fluoroscopy at L5 [bilateral] which covers facet L5-S1 ANESTHESIA: Local anesthetic; moderate IV sedation Fluoroscopy was used for the procedure and images were saved in the radiology portion of the chart. Surgeon: James Lindo MD PROCEDURE INDICATION: Lumbar back pain without radiculopathy, not responsive to conservative management. PROCEDURE DESCRIPTION: the patient was seen and identified in the preop holding area , risks and benefits and possible complications of the procedure and alternatives were discussed with the patient, and the patient agreed to proceed with the procedure and signed the consent . IV was started , vital signs were monitored during the procedure and fluoroscopy was used to maximize the benefit and accuracy of the needle placement, and sedation was given to decrease patient anxiety. Patient was taken to the procedure room and placed in prone position. The lumbar region was prepped using chlorhexidineX-2. Under strict sterile technique using AP fluoroscopy the bilateral sacral ala were identified and using ipsilateral oblique fluoroscopy. Subsequently, after local infiltration of skin with lidocaine 1% 0.2 mL at each level , a 25-gauge 3.5" Quincke-type needle was placed at the junction of the base of the transverse process and the superior articular process at the appropriate level as well as the sacral ala, and the needle was advanced until the periosteum contacted, needle placement confirmed with AP and oblique fluoroscopy, 0.2 mL of Isovue 200 per level was injected which revealed no vascular uptake and after negative aspiration, 1 mL of 0.5% ropivacaine and 40 mg kenalog was injected at each level and the needle subsequently removed . At the end of the procedure and the needles were removed and a bandage applied after the skin was cleaned. The patient was taken to recovery room in stable condition and monitors in the recovery room for 20-30 minutes and discharged home in stable condition after discharge criteria met and patient will follow up procedure in 2 weeks. EBL: Minimal COMPLICATION: None. He was scheduled for bilateral L4-L5 and L5-S1 medial branch block. However patient has significant lumbar fusions obscuring all landmarks at those levels. I was able to place a needle sacral ala to anesthetize at L5 dorsal ramus. However the other levels are impossible to see given the amount of hardware.
[2020-08-07 10:49] VITALS: BP 126/72; PULSE 74
--- NOTE | 2020-08-09 16:51 | FL ---
EXAMINATION TYPE: FL guided pain mgmt statistic DATE OF EXAM: 08/07/2020 FLUOROSCOPY Fluoroscopy time of 4 seconds was used during bilateral lumbar pain injections. 1 image/s document/s the procedure.
== END 2020-08-07 10:55 | disposition home or self-care (01) ==
LOC: ORPAIN 08:48
PROVIDERS: ATTEND Anesthesiology
DX: M47.816 Spondylosis without myelopathy or radiculopathy, lumbar region (principal); G47.33 Obstructive sleep apnea (adult) (pediatric); Z99.89 Dependence on other enabling machines and devices; F17.200 Nicotine dependence, unspecified, uncomplicated; E11.9 Type 2 diabetes mellitus without complications; Z87.442 Personal history of urinary calculi; F41.9 Anxiety disorder, unspecified; F32.9 Major depressive disorder, single episode, unspecified; K74.60 Unspecified cirrhosis of liver; H91.90 Unspecified hearing loss, unspecified ear; Z79.84 Long term (current) use of oral hypoglycemic drugs; Z79.891 Long term (current) use of opiate analgesic; Z79.899 Other long term (current) drug therapy
CPT/HCPCS: 64493; J2250; J3301; J3010; Q9966; J2795

== ENCOUNTER → 2020-08-19 | Outpatient (CLI) | payer MEDICARE ==
[2020-08-19 10:48] VITALS: BP 124/77; PULSE 92; RESP 16; TEMP 98.3
--- NOTE | 2020-08-19 11:06 | P.PN ---
Subjective Progress Note Date: 08/19/20 This is a follow-up visit for this 59 years old male with a chronic history of severe low back pain his diagnosed with postlaminectomy pain syndrome lumbar area, and lumbar spondylosis with lumbar facet arthropathy, and bilateral sacroiliac joint dysfunction, recently we have done diagnostic medial branch block at L5-S1, he get more than 80% relief of his low back pain after the block, the patient reported that the pain is constant and increases with any activity he denies any motor or sensory deficits but he reported that the intensity of the pain interferes with the quality of life Objective - Vital Signs Vital signs: Vital Signs Temp 98.3 F 08/19/20 10:43 Pulse 92 08/19/20 10:43 Resp 16 08/19/20 10:43 BP 124/77 08/19/20 10:43 Pulse Ox 96 08/19/20 10:43 - Exam Physical Examinations : -Constitutiona : Cooperative , not in acute distress . -HEENT : nech : supple , no Lymphadenopathy , normal thyroid size . : eyes : no ptosis , no icterus, no photophobia . - neurologic : Cranial nerve II to XII intact , no focal neurological deffecit . -psychatric : alert , oriented X 3 , appropriate affect , intact judgment and insight . -Lymphatic : no Lymphadenopathy . - musculoskeltal : Cervical Spine motor stregnth in the deltoid and biceps, normal right side , normal Left side motor stregnth biceps and the wrist extensors normal right side ,normal left side . motor stregnth in the triceps muscle . normal Right side , normal Left side deep tendon reflexes normal at the biceps , normal at Brachioradialis , normal at triceps. cervical facet loading test: Positive Bilaterally Spurling test= positive Right , positive left. Neck distraction test= positive Right , positive left. Bhargavi sign= positive right, positive left . Lumber spine moter stegnth lower extremities ,thigh and legs 5/5 Right side , 5/5 Left side deep tendon reflexes : normal Knee Jerk , normal ankle Jerk lumber facet Loading Test =positive Right , positive Left Range of motion of the lumbar spine Flexion 30 degrees, extension 10 degrees strait leg raising test = positive at 30 degree bilaterally Fabere test= positive Right , and positive LT . Sever tenderness over the Sacroiliac joint on the Right , and Left sides Gaenslen test= positive right ,and positive left . Seated flexion test= positive right ,and positive Left . Distraction test= positive bilaterally Assessment and Plan Plan: Assessment and plan=1-lumbar spondylosis with lumbar facet arthropathy Patient get 80% improvement of his low back pain after first diagnostic medial branch block 2-postlaminectomy pain syndrome lumbar area. 3-bilateral sacroiliitis. Patient could benefit from repeat bilateral facet injection at L5-S1, and she had good relief he will be candidate for RFA - PQRS measures = - Patient's medications are documented in the chart. -Tobacco use is positive ,and counseling.Given. -Patient's has not received pneumococcal vaccine. -Advanced care planning discussed, patient not eligible. -Opiate contract not signed. -Pain positive and follow-up visit/procedure is scheduled. -Patient's blood pressure measured [ 124/77 ] , and documented in the record ,and patient will follow up with the primary care. -Patient's weight was measured and body mass index [35.7 ] above the normal limits and counseling was done. and patient instructed to follow-up with the primary care physician. -Patient was not identified as an unhealthy alcohol user Time with Patient: Less than 30
== END ==
LOC: PNWHC3 10:25
PROVIDERS: ATTEND Specialist
DX: M47.816 Spondylosis without myelopathy or radiculopathy, lumbar region (principal); M96.1 Postlaminectomy syndrome, not elsewhere classified; M46.1 Sacroiliitis, not elsewhere classified; F17.200 Nicotine dependence, unspecified, uncomplicated
CPT/HCPCS: 99211

== ENCOUNTER → 2020-08-26 | Outpatient (CLI) | payer MEDICARE ==
--- NOTE | 2020-08-26 07:41 | US ---
EXAMINATION TYPE: US abdomen limited DATE OF EXAM: 08/26/2020 COMPARISON: US 06/21/19, CT 04/13/20 CLINICAL HISTORY: K74.60 Chirosis of liver. MUQ pain EXAM MEASUREMENTS: Liver Length: 18.4 cm Gallbladder Wall: 0.2 cm CBD: 0.4 cm Right Kidney: 11.5 x 5.9 x 5.0 cm Pancreas: Tail obscured by overlying bowel gas, 0.2 cm duct Liver: Heterogeneous texture, fatty infiltrate with 2.3 cm focal sparing near GB. Upper limits of no rmal for size Gallbladder: No stones seen, irregular shape Evidence for sonographic Tena's sign: No CBD: wnl Right Kidney: No hydronephrosis or masses seen, 0.7 cm nonobstructing calculus mid pole. IMPRESSION: 1. Hepatic steatosis with areas of focal fatty sparing. 2. Nonobstructing calculus right kidney.
[2020-08-26 08:10] LABS: Basophils # (A) 0.1 k/uL (0-0.2); Basophils % (A) 1 %; Eosinophils # (A) 0.4 k/uL (0-0.7); Eosinophils % (A) 4 %; HCT 45.4 % (39.0-53.0); Lymphocytes # (A) 1.7 k/uL (1.0-4.8); Lymphocytes % (A) 20 %; MCH 32.9 pg (25.0-35.0); MCHC 33.2 g/dL (31.0-37.0); Mean Platelet Volume 8.6; Monocytes # (A) 0.6 k/uL (0-1.0); Monocytes % (A) 7 %; Neutrophils # (A) 5.7 k/uL (1.3-7.7); Neutrophils % (A) 67 %; Platelet Count 131 k/uL (150-450); RBC 4.58 m/uL (4.30-5.90); RDW 13.5 % (11.5-15.5); WBC 8.5 k/uL (3.8-10.6)
[2020-08-26 08:24] LABS: ALT 50 U/L (4-49); AST 53 U/L (17-59); African American GFR (CKD) >90 (>60 ml/min/1.73 sqM); Albumin 4.4 g/dL (3.5-5.0); Alkaline Phosphatase 87 U/L (38-126); Anion Gap 6 mmol/L; Blood Urea Nitrogen 16 mg/dL (9-20); Calcium 9.8 mg/dL (8.4-10.2); Carbon Dioxide 31 mmol/L (22-30); Chloride 105 mmol/L (98-107); Glucose 139 mg/dL (74-99); Non-African American GFR(CKD) >90 (>60 ml/min/1.73 sqM); Potassium 5.4 mmol/L (3.5-5.1); Sodium 142 mmol/L (137-145); Total Bilirubin 0.8 mg/dL (0.2-1.3); Total Protein 7.6 g/dL (6.3-8.2)
== END | disposition home or self-care (01) ==
LOC: RADUSWWP 06:54
PROVIDERS: ATTEND Internal Medicine Gastroenterology
DX: K76.0 Fatty (change of) liver, not elsewhere classified (principal); N20.0 Calculus of kidney
CPT/HCPCS: 76705; 80053; 82105; 85025; 85610

== ENCOUNTER 2020-09-02 22:28 | Inpatient (IN) | payer MEDICARE ==
[2020-09-02] MEDS ORDERED: SODIUM CHLORIDE 0.9% 1,000 ML IV STA (22:53)
[2020-09-02] MEDS ORDERED: HYDROmorphone 0.5 MG/0.5 ML SYRINGE IVP STA (22:53)
[2020-09-02] MEDS ORDERED: FAMOTIDINE 20 MG/2 ML VIAL IV STA (22:58)
--- NOTE | 2020-09-02 22:58 | ED ---
General Adult HPI - General Chief complaint: Abdominal Pain Stated complaint: ABD pain Time Seen by Provider: 09/02/20 22:37 Source: patient, RN notes reviewed Mode of arrival: wheelchair Limitations: no limitations - History of Present Illness Initial comments: 59-year-old male with a past medical history of diabetes mellitus, hyperlipidemia, treated hepatitis C, cirrhosis presents to the emergency room for mid abdominal pain. Patient states he is having pain near his umbilicus. This has been ongoing for a few weeks but seems to be worsening. Patient states he has been nauseous as well.no vomiting. Bowel movements have been normal. No history of fevers. Patient has no other complaints at this time including shortness of breath, chest pain, vomiting, headache, or visual changes. - Related Data Home Medications Medication Instructions Recorded Confirmed Citalopram Hydrobromide 20 mg PO QAM 09/28/17 09/02/20 [Citalopram HBr] RX: Cetirizine HCl 10 mg PO HS 11/13/19 09/02/20 lisinopriL [Zestril] 5 mg PO QAM 11/13/19 09/02/20 sitaGLIPtin [Januvia] 100 mg PO DAILY 11/13/19 09/02/20 RX: metFORMIN HCL 1,000 mg PO BID 04/13/20 09/02/20 oxyCODONE-APAP 10-325MG [Percocet 1 tab PO TID PRN 05/18/20 09/02/20 10-325 mg] Allergies Allergy/AdvReac Type Severity Reaction Status Date / Time No Known Allergies Allergy Verified 09/02/20 22:53 Review of Systems ROS Statement: Those systems with pertinent positive or pertinent negative responses have been documented in the HPI. ROS Other: All systems not noted in ROS Statement are negative. Past Medical History Past Medical History: Diabetes Mellitus, Hearing Disorder / Deafness, Liver Disease, Musculoskeletal Disorder, Skin Disorder, Sleep Apnea/CPAP/BIPAP Additional Past Medical History / Comment(s): HX kidney stones, hep c - has treated, has Cirrhosis, DDD, NT LLE; uses cpap, Russo's Palsy. Decreased hearing Lt ear. Sl eczema face. History of Any Multi-Drug Resistant Organisms: None Reported Past Surgical History: Back Surgery, Orthopedic Surgery Additional Past Surgical History / Comment(s): posterior lumbar decompression, fusion L2-3-4, L4-L5,transforaminal lumbar interbody fusion. lithotripsy, BILAT CTR, RT 4TH TRIGGER FINGER RELEASE, 3 trigger fingers released on left hand, Colonoscopy, EGD, SPINAL INJECTIONS. Past Anesthesia/Blood Transfusion Reactions: Previous Problems w/ Anesthesia Additional Past Anesthesia/Blood Transfusion Reaction / Comment(s): IV Rx very painful in arm w/ last colonoscopy 10/2019. Past Psychological History: Anxiety, Depression Smoking Status: Current every day smoker Past Alcohol Use History: None Reported Past Drug Use History: None Reported - Past Family History Father Additional Family Medical History / Comment(s): AROUND AGE 70 UNK HX Mother Family Medical History: Cancer, Osteoarthritis (OA) Additional Family Medical History / Comment(s): SKIN CANCER MOM IS 81 YEARS OLD General Exam Limitations: no limitations General appearance: alert, in no apparent distress Head exam: Present: atraumatic, normocephalic, normal inspection Eye exam: Present: normal appearance, PERRL, EOMI. Absent: scleral icterus, conjunctival injection, periorbital swelling ENT exam: Present: normal exam, mucous membranes moist Neck exam: Present: normal inspection, full ROM. Absent: tenderness, meningismus, lymphadenopathy Respiratory exam: Present: normal lung sounds bilaterally. Absent: respiratory distress, wheezes, rales, rhonchi, stridor Cardiovascular Exam: Present: regular rate, normal rhythm, normal heart sounds. Absent: systolic murmur, diastolic murmur, rubs, gallop, clicks GI/Abdominal exam: Present: soft, tenderness (Mid abdominal tenderness just above the umbilicus), normal bowel sounds. Absent: distended, guarding, r ebound, rigid Neurological exam: Present: alert Course Vital Signs 09/02/20 22:33 Temperature 97.9 F Pulse Rate 100 Respiratory 20 Rate Blood Pressure 148/85 O2 Sat by Pulse 96 Oximetry Medical Decision Making - Medical Decision Making Vitals are stable. Patient does have abdominal pain. Tenderness noted in the epigastric and mid abdominal area. CBC unremarkable. CMP unremarkable. Patient does have pancreatitis noted with an elevated lipase of 2300. CT abdomen and pelvis showed a nonobstructing appendix seen. No sign of acute abdomen or pelvis. Ultrasound is no longer in the building. We will admit patient with GI consultation, nothing by mouth, parenteral fluids. If necessary ultrasound can be performed inpatient. - Lab Data Result diagrams: 09/02/20 22:59 09/02/20 22:59 Lab Results 09/02/20 09/02/20 09/02/20 Range/Units 22:59 22:59 22:59 WBC 9.5 (3.8-10.6) k/uL RBC 4.71 (4.30-5.90) m/uL Hgb 15.1 (13.0-17.5) gm/dL Hct 45.2 (39.0-53.0) % MCV 96.0 (80.0-100.0) fL MCH 32.1 (25.0-35.0) pg MCHC 33.5 (31.0-37.0) g/dL RDW 13.3 (11.5-15.5) % Plt Count 154 (150-450) k/uL MPV 8.0 Neutrophils % 65 % Lymphocytes % 20 % Monocytes % 7 % Eosinophils % 4 % Basophils % 1 % Neutrophils # 6.2 (1.3-7.7) k/uL Lymphocytes # 1.9 (1.0-4.8) k/uL Monocytes # 0.7 (0-1.0) k/uL Eosinophils # 0.4 (0-0.7) k/uL Basophils # 0.1 (0-0.2) k/uL Sodium 137 (137-145) mmol/L Potassium 4.0 (3.5-5.1) mmol/L Chloride 103 (98-107) mmol/L Carbon Dioxide 26 (22-30) mmol/L Anion Gap 8 mmol/L BUN 15 (9-20) mg/dL Creatinine 0.70 (0.66-1.25) mg/dL Est GFR (CKD-EPI)AfAm >90 (>60 ml/min/1.73 sqM) Est GFR (CKD-EPI)NonAf >90 (>60 ml/min/1.73 sqM) Glucose 135 H (74-99) mg/dL Plasma Lactic Acid Jeremie (0.7-2.0) mmol/L Calcium 10.1 (8.4-10.2) mg/dL Total Bilirubin 0.7 (0.2-1.3) mg/dL AST 42 (17-59) U/L ALT 41 (4-49) U/L Alkaline Phosphatase 104 (38-126) U/L Total Protein 7.7 (6.3-8.2) g/dL Albumin 4.5 (3.5-5.0) g/dL Amylase 207 H (30-110) U/L Lipase 2339 H (23-300) U/L Urine Color Yellow Urine Appearance Clear (Clear) Urine pH 5.5 (5.0-8.0) Ur Specific [place] 1.027 (1.001-1.035) Urine Protein Negative (Negative) Urine Glucose (UA) 1+ H (Negative) Urine Ketones Negative (Negative) Urine Blood Negative (Negative) Urine Nitrite Negative (Negative) Urine Bilirubin Negative (Negative) Urine Urobilinogen <2.0 (<2.0) mg/dL Ur Leukocyte Esterase Negative (Negative) 09/02/20 Range/Units 22:59 WBC (3.8-10.6) k/uL RBC (4.30-5.90) m/uL Hgb (13.0-17.5) gm/dL Hct (39.0-53.0) % MCV (80.0-100.0) fL MCH (25.0-35.0) pg MCHC (31.0-37.0) g/dL RDW (11.5-15.5) % Plt Count (150-450) k/uL MPV Neutrophils % % Lymphocytes % % Monocytes % % Eosinophils % % Basophils % % Neutrophils # (1.3-7.7) k/uL Lymphocytes # (1.0-4.8) k/uL Monocytes # (0-1.0) k/uL Eosinophils # (0-0.7) k/uL Basophils # (0-0.2) k/uL Sodium (137-145) mmol/L Potassium (3.5-5.1) mmol/L Chloride (98-107) mmol/L Carbon Dioxide (22-30) mmol/L Anion Gap mmol/L BUN (9-20) mg/dL Creatinine (0.66-1.25) mg/dL Est GFR (CKD-EPI)AfAm (>60 ml/min/1.73 sqM) Est GFR (CKD-EPI)NonAf (>60 ml/min/1.73 sqM) Glucose (74-99) mg/dL Plasma Lactic Acid Jeremie 1.4 (0.7-2.0) mmol/L Calcium (8.4-10.2) mg/dL Total Bilirubin (0.2-1.3) mg/dL AST (17-59) U/L ALT (4-49) U/L Alkaline Phosphatase (38-126) U/L Total Protein (6.3-8.2) g/dL Albumin (3.5-5.0) g/dL Amylase (30-110) U/L Lipase (23-300) U/L Urine Color Urine Appearance (Clear) Urine pH (5.0-8.0) Ur Specific [place] (1.001-1.035) Urine Protein (Negative) Urine Glucose (UA) (Negative) Urine Ketones (Negative) Urine Blood (Negative) Urine Nitrite (Negative) Urine Bilirubin (Negative) Urine Urobilinogen (<2.0) mg/dL Ur Leukocyte Esterase (Negative) Disposition Clinical Impression: Abdominal pain, Pancreatitis Disposition: ADMITTED IP TO THIS HOSP Is patient prescribed a controlled substance at d/c from ED?: No Referrals: Franki Garvey MD [Primary Care Provider] - 1-2 days Time of Disposition: 01:23
[2020-09-02 23:15] LABS: Basophils # (A) 0.1 k/uL (0-0.2); Basophils % (A) 1 %; Eosinophils # (A) 0.4 k/uL (0-0.7); Eosinophils % (A) 4 %; HCT 45.2 % (39.0-53.0); HGB 15.1 gm/dL (13.0-17.5); Lymphocytes # (A) 1.9 k/uL (1.0-4.8); Lymphocytes % (A) 20 %; MCH 32.1 pg (25.0-35.0); MCHC 33.5 g/dL (31.0-37.0); Monocytes # (A) 0.7 k/uL (0-1.0); Monocytes % (A) 7 %; Neutrophils # (A) 6.2 k/uL (1.3-7.7); Neutrophils % (A) 65 %; Platelet Count 154 k/uL (150-450); RBC 4.71 m/uL (4.30-5.90); RDW 13.3 % (11.5-15.5); WBC 9.5 k/uL (3.8-10.6)
[2020-09-02] MEDS ORDERED: HYDROmorphone 1 MG/ML 1 ML SYRINGE IVP STA (23:38)
[2020-09-02] MEDS ORDERED: ONDANSETRON 4 MG/2 ML VIAL IVP STA (23:38)
[2020-09-02 23:51] LABS: Appearance,Urine Clear (Clear); Bilirubin,Urine Negative (Negative); Blood,Urine Negative (Negative); Color,Urine Yellow; Glucose,Urine (UA) 1+ (Negative); Ketones,Urine Negative (Negative); Leukocyte Esterase,Urine Negative (Negative); Nitrite,Urine Negative (Negative); PH, Urine 5.5 (5.0-8.0); Protein,Urine Negative (Negative); Specific Gravity,Urine 1.027 (1.001-1.035); Urobilinogen,Urine <2.0 mg/dL (<2.0)
[2020-09-02 23:52] LABS: ALT 41 U/L (4-49); AST 42 U/L (17-59); African American GFR (CKD) >90 (>60 ml/min/1.73 sqM); Albumin 4.5 g/dL (3.5-5.0); Alkaline Phosphatase 104 U/L (38-126); Amylase 207 U/L (30-110); Anion Gap 8 mmol/L; Blood Urea Nitrogen 15 mg/dL (9-20); Calcium 10.1 mg/dL (8.4-10.2); Carbon Dioxide 26 mmol/L (22-30); Chloride 103 mmol/L (98-107); Glucose 135 mg/dL (74-99); Non-African American GFR(CKD) >90 (>60 ml/min/1.73 sqM); Sodium 137 mmol/L (137-145); Total Bilirubin 0.7 mg/dL (0.2-1.3); Total Protein 7.7 g/dL (6.3-8.2)
[2020-09-03 00:01] LABS: Lipase 2339 U/L (23-300)
--- NOTE | 2020-09-03 00:46 | CT ---
EXAMINATION TYPE: CT abdomen pelvis w con DATE OF EXAM: 09/03/2020 COMPARISON: 04/13/2020 HISTORY: Epigastric pain CT DLP: 1633.4 mGycm Automated exposure control for dose reduction was used. CONTRAST: Performed with IV Contrast, patient injected with 100 mL of Isovue 300. Lung bases are clear. There is no pleural effusion. Heart size is normal. There is no pericardial eff usion. Liver spleen stomach pancreas gallbladder appear intact. Bile ducts are not dilated. There is no adrenal mass. Kidneys show satisfactory contrast opacification. There is no hydronephrosi s. Ureters are not dilated. There is 4 mm calculus posterior left kidney. There is 2 mm calculus post erior right kidney. There is no retroperitoneal adenopathy. Bladder distends smoothly. There is no in guinal hernia. There is minimal prostate calcification. There is no mesenteric edema. There is no ascites or free air. There is no bowel obstruction. There i s multilevel posterior fusion surgery in the lumbar spine. There is metal artifact. Appendix is not d efinitely seen. There is no sign of thickened appendix. Lumbar vertebra have normal alignment. There is no compression fracture. The bony pelvis is intact. T he hip joints are intact. There is no sign of hip dysplasia. There is 1.5 cm umbilical hernia that co ntains fat. IMPRESSION: Nonobstructing renal calculi. Appendix not seen. No sign of appendicitis. No sign of acute abdomen an d pelvis. No adverse change compared to old exam.
[2020-09-03] MEDS ORDERED: HYDROmorphone 0.5 MG/0.5 ML SYRINGE IVP STA (01:15)
[2020-09-03] MEDS ORDERED: ACETAMINOPHEN TAB 325 MG TAB PO PRN (01:23)
[2020-09-03] MEDS ORDERED: ONDANSETRON 4 MG/2 ML VIAL IVP PRN (01:23)
[2020-09-03] MEDS ORDERED: NALOXONE 0.4 MG/ML 1 ML VIAL IV PRN (01:23)
[2020-09-03] MEDS ORDERED: diphenhydrAMINE 50 MG/ML 1 ML VIAL IVP PRN (01:27)
[2020-09-03] MEDS ORDERED: METOCLOPRAMIDE 5 MG/ML 2 ML VIAL IVP PRN (01:27)
[2020-09-03] MEDS: HYDROmorphone 1 MG/ML 1 ML SYRINGE IVP PRN ×6 (01:39→21:01)
[2020-09-03] MEDS: SODIUM CHLORIDE 0.9% 1,000 ML IV SCH ×3 (05:18→17:48)
[2020-09-03] MEDS: LINAGLIPTIN 5 MG TABLET PO SCH (08:49)
[2020-09-03] MEDS: lisinopriL 5 MG TAB PO SCH (08:49)
[2020-09-03] MEDS: metFORMIN 500 MG TAB PO SCH ×2 (09:28→19:56)
[2020-09-03 10:12] LABS: Amylase 161 U/L (30-110); Lipase 1179 U/L (23-300); Triglycerides 104 mg/dL (<150)
[2020-09-03 11:50] LABS: Glucose,Whole Blood 104 mg/dL (75-99)
--- NOTE | 2020-09-03 15:02 | P.HPIM ---
History of Present Illness H&P Date: 09/03/20 Chief Complaint: Abdominal pain This is a 59-year-old gentleman with past medical history of diabetes mellitus II, hard of hearing, liver disease, muscle skeletal disorder, sleep apnea- wears CPAP/BiPAP, status post as post lumbar decompression fusion orthopedic surgeries, anxiety, depression, ongoing nicotine dependence, history of alcohol abuse reports last consumption 20 years ago, treated hepatitis C presented to the ER with worsening midepigastric abdominal pain radiating down to supraumbilical area, accompanied by nausea, no emesis. Reports new onset abdominal pain started approximately 2 weeks ago, continued to worsen. Continues to have normal bowel movements, no problems with urination. Denies fever or chills .Amylase 207, Lipase on admission 2339. Reports no previous pancreatitis. CT of abdomen and pelvis reporting nonobstructive renal calculi, appendix not seen, 1.5 cm umbilical hernia that contains fat, no acute abdomen/pelvis with no adverse change compared to prior exam. Denies chest pain, palpitations, shortness of breath. Denies lightheadedness, dizziness or focal deficits. Hematology, chemistry panels unremarkable. Amylase down to 161, lipase down to 1179. UA negative, caronavirus not detected. IV fluids initiated in the ER with GI consult placed. Review of Systems ROS Statement: Those systems with pertinent positive or pertinent negative responses have been documented in the HPI. ROS Other: All systems not noted in ROS Statement are negative. Past Medical History Past Medical History: Diabetes Mellitus, Hearing Disorder / Deafness, Liver Disease, Musculoskeletal Disorder, Skin Disorder, Sleep Apnea/CPAP/BIPAP Additional Past Medical History / Comment(s): NIDDM type II, DDD, spinal stenos is, chronic low back pain, numbness/tingling L foot, gastritis, benign colon polyps, diverticular disease, past + stool occult blood, nephrolithiasis, ERNESTO with Cpap use, eczema, past Russo's palsey. History of Any Multi-Drug Resistant Organisms: None Reported Past Surgical History: Back Surgery, Orthopedic Surgery Additional Past Surgical History / Comment(s): Posterior lumbar decompression, fusion L2-3-4, L4-L5,transforaminal lumbar interbody fusion, lithotripsy, BILAT CTR, RT 4TH TRIGGER FINGER RELEASE, 3 trigger fingers released on left hand, Colonoscopy, EGD, SPINAL INJECTIONS. Past Anesthesia/Blood Transfusion Reactions: Previous Problems w/ Anesthesia Additional Past Anesthesia/Blood Transfusion Reaction / Comment(s): IV Rx very painful in arm w/ last colonoscopy 10/2019. Smoking Status: Current every day smoker - Past Family History Father Additional Family Medical History / Comment(s): AROUND AGE 70 UNK HX Mother Family Medical History: Cancer, Osteoarthritis (OA) Additional Family Medical History / Comment(s): SKIN CANCER MOM IS 87 YEARS OLD Medications and Allergies Home Medications Medication Instructions Recorded Confirmed Type Citalopram Hydrobromide 20 mg PO QAM 09/28/17 09/02/20 History [Citalopram HBr] Cetirizine HCl 10 mg PO HS 11/13/19 09/02/20 History lisinopriL [Zestril] 5 mg PO QAM 11/13/19 09/02/20 History sitaGLIPtin [Januvia] 100 mg PO DAILY 11/13/19 09/02/20 History metFORMIN HCL 1,000 mg PO BID 04/13/20 09/02/20 History oxyCODONE-APAP 10-325MG [Percocet 1 tab PO TID PRN 05/18/20 09/02/20 History 10-325 mg] Allergies Allergy/AdvReac Type Severity Reaction Status Date / Time No Known Allergies Allergy Verified 09/02/20 22:53 Physical Exam Vitals: Vital Signs Temp Pulse Resp BP Pulse Ox 09/03/20 10:00 98.0 F 84 18 126/79 98 09/03/20 01:51 97 18 131/80 98 09/02/20 22:33 97.9 F 100 20 148/85 96 Intake and Output 09/02/20 09/03/20 09/03/20 22:59 06:59 14:59 Other: Weight 104.326 kg 104.326 kg PHYSICAL EXAM: VITAL SIGNS: [As above] GENERAL: Sitting up on stretcher, no acute distress HEENT: Conjunctivae normal. eyes normal. Oral mucosa dry NECK: No JVD. No thyroid enlargement. No LNs CARDIOVASCULAR: S1, S2 regular.. No murmur RESPIRATION: Breath sounds diminished in the bases. No rhonchi or crackles. No bronchial breathing. ABDOMEN: Soft, tender midepigastric to supraumbilical, No guarding. no masses palpable. No ascites, No hepatosplenomegaly.Bowel sounds heard. LEGS: No edema. no swelling PSYCHIATRY: Alert and oriented X3, mood and affect normal. NERVOUS SYSTEM: Cranial N 2-12 grossly normal. Moves all 4 limbs. No focal deficits. Strength and sensation grossly intact. Skin: Warm and dry, no rash Lymphatic system. No LN neck axilla. Results CBC & Chem 7: 09/02/20 22:59 09/02/20 22:59 Labs: Abnormal Lab Results - Last 24 Hours (Table) 09/02/20 09/02/20 09/03/20 Range/Units 22:59 22:59 09:11 Glucose 135 H (74-99) mg/dL POC Glucose (mg/dL) (75-99) mg/dL Amylase 207 H 161 H (30-110) U/L Lipase 2339 H 1179 H (23-300) U/L Urine Glucose (UA) 1+ H (Negative) 09/03/20 Range/Units 11:44 Glucose (74-99) mg/dL POC Glucose (mg/dL) 104 H (75-99) mg/dL Amylase (30-110) U/L Lipase (23-300) U/L Urine Glucose (UA) (Negative) Thrombosis Risk Factor Assmnt - Choose All That Apply Any of the Below Risk Factors Present?: Yes Each Factor Represents 1 point: Age 41-60 years, Obesity (BMI >25) Other Risk Factors: No Other congenital or acquired thrombophilia - If yes, enter type in comment: No Thrombosis Risk Factor Assessment Total Risk Factor Score: 2 Thrombosis Risk Factor Assessment Level: Low Risk Assessment and Plan Assessment: Abdominal pain, acute pancreatitis, etiology unclear Liver cirrhosis History of alcohol abuse, last drink reported 20 years ago History of hepatitis C Diabetes mellitus type 2 Hard of hearing Chronic back pain ,history of multiple orthopedic surgeries Anxiety Depression Ongoing nicotine dependence Obesity, BMI 35 Obstructive sleep apnea ,wears CPAP/BiPAP Plan: Continue on current medication regime ,monitoring and symptomatic treatment. NPO, bowel rest. Maintain IV fluid hydration. GI consult in place with recommendations pending. The impression and plan of care has been dictated as directed. : I performed a history and examination of this patient, discussed the same with the dictator. I agree with the dictator's note ,documented as a scribe. Any additional findings or plans will be noted.
[2020-09-03] MEDS: PANTOPRAZOLE 40 MG/10 ML VIAL IVP SCH (15:51)
[2020-09-03 16:26] LABS: Glucose,Whole Blood 91 mg/dL (75-99)
[2020-09-03] MEDS: LORATADINE 10 MG TAB PO SCH (19:56)
[2020-09-03 20:58] LABS: Glucose,Whole Blood 101 mg/dL (75-99)
[2020-09-04] MEDS: HYDROmorphone 1 MG/ML 1 ML SYRINGE IVP PRN ×7 (00:32→21:30)
[2020-09-04] MEDS: SODIUM CHLORIDE 0.9% 1,000 ML IV SCH ×4 (03:22→22:03)
--- NOTE | 2020-09-04 06:19 | P.CONS ---
History of Present Illness - Reason for Consult Consult date: 09/03/20 Pancreatitis Requesting physician: Franki Garvey - Chief Complaint Abdominal pain - History of Present Illness 59-year-old male with multiple medical comorbidities including ERNESTO, chronic back pain, tobacco abuse, remote history of alcohol abuse which he discontinued 20 y ears ago, diabetes mellitus, hyperlipidemia, hepatitis C treated with antiviral therapy, and cirrhosis of the liver who presented to the ER due to worsening abdominal pain. The patient reported pain occurring over the past 2 weeks which had been getting progressively worse. Patent epigastric region of his abdomen. And severe in nature. He reports associated nausea but no vomiting. Recently he did have amoxicillin prior to a dentist visit approximately 1 month ago. He has not had any alcohol in the past 20 years. Last bowel movement was normal with no signs or symptoms or GI bleeding, diarrhea or constipation. Computed tomography scan of the abdomen and pelvis on presentation showed nonobstructive renal calculi with no acute intra-abdominal process or biliary dilation. Patient was found to have significant elevation in lipase on presentation at 2339. Other laboratory evaluation significant for triglycerides 104, WBC 9.5, hemoglobin 15, platelet count 154,000, total bilirubin 0.7, alkaline phosphatase 104, AST 42 ALT 21. Review of Systems REVIEW OF SYSTEMS: CONSTITUTIONAL: Denies any fevers, chills, weight change or fatigue. CARDIOVASCULAR: Denies any chest pain, palpitations high or low blood pressures RESPIRATORY: Denies any shortness of breath, hemoptysis or cough. GENITOURINARY: No dysuria or hematuria. MUSCULOSKELETAL: No weakness reported. SKIN: Denies any new rashes or lesions, jaundice or pallor. PSYCHIATRIC: Denies any depression or anxiety. NEUROLOGY: Denies headache, denies any new focal deficits. EARS/NOSE/THROAT: No recent hearing change, congestion, nasal discharge or sore throat. EYES: No pain in eyes, discharge or change in vision. GASTROINTESTINAL: As per HPI. Past Medical History Past Medical History: Diabetes Mellitus, Hearing Disorder / Deafness, Liver Disease, Musculoskeletal Disorder, Skin Disorder, Sleep Apnea/CPAP/BIPAP Additional Past Medical History / Comment(s): NIDDM type II, DDD, spinal stenosis, chronic low back pain, numbness/tingling L foot, gastritis, benign colon polyps, diverticular disease, past + stool occult blood, nephrolithiasis, ERNESTO with Cpap use, eczema, past Russo's palsey. History of Any Multi-Drug Resistant Organisms: None Reported Past Surgical History: Back Surgery, Orthopedic Surgery Additional Past Surgical History / Comment(s): Posterior lumbar decompression, fusion L2-3-4, L4-L5,transforaminal lumbar interbody fusion, lithotripsy, BILAT CTR, RT 4TH TRIGGER FINGER RELEASE, 3 trigger fingers released on left hand, Colonoscopy, EGD, SPINAL INJECTIONS. Past Anesthesia/Blood Transfusion Reactions: Previous Problems w/ Anesthesia Additional Past Anesthesia/Blood Transfusion Reaction / Comm: IV Rx very painful in arm w/ last colonoscopy 10/2019. Smoking Status: Current every day smoker - Past Family History Father Additional Family Medical History / Comment(s): AROUND AGE 70 UNK HX Mother Family Medical History: Cancer, Osteoarthritis (OA) Additional Family Medical History / Comment(s): SKIN CANCER MOM IS 87 YEARS OLD Medications and Allergies Home Medications Medication Instructions Recorded Confirmed Type Citalopram Hydrobromide 20 mg PO QAM 09/28/17 09/02/20 History [Citalopram HBr] Cetirizine HCl 10 mg PO HS 11/13/19 09/02/20 History lisinopriL [Zestril] 5 mg PO QAM 11/13/19 09/02/20 History sitaGLIPtin [Januvia] 100 mg PO DAILY 11/13/19 09/02/20 History metFORMIN HCL 1,000 mg PO BID 04/13/20 09/02/20 History oxyCODONE-APAP 10-325MG [Percocet 1 tab PO TID PRN 05/18/20 09/02/20 History 10-325 mg] Allergies Allergy/AdvReac Type Severity Reaction Status Date / Time No Known Allergies Allergy Verified 09/02/20 22:53 Physical Exam Vitals: Vital Signs Temp Pulse Pulse Resp BP BP Pulse Ox 09/03/20 14:14 97.6 F 63 12 104/64 95 09/03/20 10:00 98.0 F 84 18 126/79 98 09/03/20 01:51 97 18 131/80 98 09/02/20 22:33 97.9 F 100 20 148/85 96 Intake and Output 09/02/20 09/03/20 09/03/20 22:59 06:59 14:59 Other: # Voids 2 Weight 104.326 kg 104.326 kg On physical examination, patient appears comfortable in no apparent distress. HEAD: Normocephalic, atraumatic. EYES: No scleral icterus. No conjunctival injection. MOUTH: No lesions, tongue midline. NECK: Trachea midline, no gross abnormalities. CHEST: Clear to auscultation with no wheezing or rhonchi appreciated. HEART: Regular rate and rhythm. ABDOMEN: Soft, moderately tender to palpation. Bowel sounds are positive. No organomegaly. No guarding or rigidity. EXTREMITIES: No pedal edema. SKIN: No rashes, no jaundice. NEUROLOGIC: Alert and oriented x3. No focal deficits. Results CBC & Chem 7: 09/02/20 22:59 09/02/20 22:59 Labs: Abnormal Lab Results - Last 24 Hours (Table) 09/02/20 09/02/20 09/03/20 Range/Units 22:59 22:59 09:11 Glucose 135 H (74-99) mg/dL POC Glucose (mg/dL) (75-99) mg/dL Amylase 207 H 161 H (30-110) U/L Lipase 2339 H 1179 H (23-300) U/L Urine Glucose (UA) 1+ H (Negative) 09/03/20 Range/Units 11:44 Glucose (74-99) mg/dL POC Glucose (mg/dL) 104 H (75-99) mg/dL Amylase (30-110) U/L Lipase (23-300) U/L Urine Glucose (UA) (Negative) CT scan - abdomen: report reviewed (Computed tomography scan of the abdomen and pelvis with no acute intra-abdominal pathology. Nonobstructing renal calculi noted.) Assessment and Plan (1) Pancreatitis Narrative/Plan: 59-year-old male with multiple medical comorbidities presenting to the hospital for epigastric abdominal pain and severe in nature with associated elevation of lipase on presentation at 2339. No prior history of pancreatitis, I'll call use the past 20 years, no evidence of hepatobiliary disease on computed tomography scan of the abdomen. Currently being treated for acute uncomplicated pancreatitis. Current Visit: Yes Status: Acute Code(s): K85.90 - ACUTE PANCREATITIS WITHOUT NECROSIS OR INFECTION, UNSP SNOMED Code(s): 50870249 (2) History of hepatitis C Current Visit: Yes Status: Acute Code(s): Z86.19 - PERSONAL HISTORY OF OTHER INFECTIOUS AND PARASITIC DISEASES SNOMED Code(s): 33649465217047 (3) Cirrhosis Current Visit: Yes Status: Acute Code(s): K74.60 - UNSPECIFIED CIRRHOSIS OF LIVER SNOMED Code(s): 63860771 (4) Abdominal pain Current Visit: Yes Status: Acute Code(s): R10.9 - UNSPECIFIED ABDOMINAL PAIN SNOMED Code(s): 57302926 Plan: Supportive care Clear liquid diet Continue pain control Continue IV fluid hydration Encourage ambulation Extensive discussion with the patient regarding tobacco cessation Repeat amylase and lipase ordered MAGDY, triglyceride level and IgG ordered Thank you for allowing us to participate in the care of the patient
[2020-09-04 06:57] LABS: Glucose,Whole Blood 106 mg/dL (75-99)
[2020-09-04] MEDS: lisinopriL 5 MG TAB PO SCH (09:31)
[2020-09-04 10:32] LABS: African American GFR (CKD) 121.4 (60.0-200.0); Albumin 3.8 g/dL (3.80-4.90); Albumin/Globulin Ratio 1.81 (1.60-3.17); Anion Gap 7.2 mmol/L (4.00-12.00); BUN/Creat Ratio 14.29 Ratio (12.00-20.00); Calcium 8.3 mg/dL (8.7-10.3); Carbon Dioxide 27.8 mmol/L (21.6-31.8); Globulin 2.1 g/dL (1.6-3.3); Non-African American GFR(CKD) 104.8 (60.0-200.0); Potassium 3.9 mmol/L (3.5-5.5); Total Bilirubin 1.1 mg/dL (0.2-1.2); Total Protein 5.9 g/dL (6.2-8.2)
[2020-09-04 10:38] LABS: IgG Subclass 3 27.3 mg/dL (11.0-85.0); IgG Subclass 4 19.4 mg/dL (3.0-175.0)
[2020-09-04] MEDS: LINAGLIPTIN 5 MG TABLET PO SCH (10:58)
[2020-09-04] MEDS: PANTOPRAZOLE 40 MG/10 ML VIAL IVP SCH (10:58)
[2020-09-04] MEDS: metFORMIN 500 MG TAB PO SCH ×2 (10:58→21:30)
[2020-09-04 11:23] LABS: Glucose,Whole Blood 158 mg/dL (75-99)
--- NOTE | 2020-09-04 12:40 | P.PN ---
Subjective Progress Note Date: 09/04/20 This is a 59-year-old gentleman with past medical history of diabetes mellitus II, hard of hearing, liver disease, muscle skeletal disorder, sleep apnea- wears CPAP/BiPAP, status post as post lumbar decompression fusion orthopedic surgeries, anxiety, depression, ongoing nicotine dependence, history of alcohol abuse reports last consumption 20 years ago, treated hepatitis C presented to the ER with worsening midepigastric abdominal pain radiating down to supraumbilical area, accompanied by nausea, no emesis. Reports new onset abdominal pain started approximately 2 weeks ago, continued to worsen. Co ntinues to have normal bowel movements, no problems with urination. Denies fever or chills .Amylase 207, Lipase on admission 2339. Reports no previous pancreatitis. CT of abdomen and pelvis reporting nonobstructive renal calculi, appendix not seen, 1.5 cm umbilical hernia that contains fat, no acute abdomen/pelvis with no adverse change compared to prior exam. Denies chest pain, palpitations, shortness of breath. Denies lightheadedness, dizziness or focal deficits. Hematology, chemistry panels unremarkable. Amylase down to 161, lipase down to 1179. UA negative, caronavirus not detected. IV fluids initiated in the ER with GI consult placed. 09/04/2020 significant clinical improvement on bowel rest and IV fluid hydration, lipase down to 132. Reports abdominal pain improving, but has required Dilaudid every 3 hours with the last dose around 9:30. Denies nausea vomiting. Clear liquid diet to be initiated at lunch. Triglycerides 104, MAGDY screen negative, IgG pending. Afebrile. Maintaining O2 sats in the high 90s on 2 L nasal cannula. Evaluated by GI with recommendations noted and appreciated. Denies chest pain, palpitations or shortness of breath. Objective - Vital Signs Vital signs: Vital Signs Temp 97.9 F 09/04/20 07:00 Pulse 77 09/04/20 07:00 Resp 15 09/04/20 07:00 BP 123/72 09/04/20 07:00 Pulse Ox 97 09/04/20 07:00 Intake & Output 09/03/20 09/04/20 09/04/20 18:59 06:59 18:59 Weight 104.326 kg Other: # Voids 2 - Exam PHYSICAL EXAM: VITAL SIGNS: [As above] GENERAL: Sitting up in chair, no acute distress, no jaundice HEENT: Conjunctivae normal. eyes normal. No sclerae icterus, Oral mucosa dry. NECK: Supple, No JVD. CARDIOVASCULAR: S1, S2 regular. No murmur RESPIRATION: Breath sounds diminished in the bases. No rhonchi or crackles. ABDOMEN: Soft, less diffuse tenderness, No guarding. no masses palpable. Po sitive Bowel sounds. LEGS: No edema. no swelling PSYCHIATRY: Alert and oriented X3, mood and affect normal. NERVOUS SYSTEM: Cranial N 2-12 grossly normal. Moves all 4 limbs. No focal deficits. Strength and sensation grossly intact. Skin: Warm and dry, no rash - Labs CBC & Chem 7: 09/02/20 22:59 09/04/20 06:02 Labs: Abnormal Lab Results - Last 24 Hours (Table) 09/03/20 09/03/20 09/04/20 Range/Units 11:44 20:57 06:56 POC Glucose (mg/dL) 104 H 101 H 106 H (75-99) mg/dL Assessment and Plan Assessment: Abdominal pain, acute pancreatitis, etiology unclear Liver cirrhosis History of alcohol abuse, last drink reported 20 years ago History of hepatitis C Diabetes mellitus type 2 Hard of hearing Chronic back pain ,history of multiple orthopedic surgeries Anxiety Depression Ongoing nicotine dependence Obesity, BMI 35 Obstructive sleep apnea ,wears CPAP/BiPAP Plan: Continue on current medication regime ,monitoring and symptomatic treatment. Diet advancement as per GI. Increase ambulation as tolerated. Pain management frequency decreased. Smoking cessation reinforced. Discharge planning in progress for tomorrow, pending patient tolerating diet advancement and improvement in abdominal pain. The impression and plan of care has been dictated as directed. : I performed a history and examination of this patient, discussed the same with the dictator. I agree with the dictator's note ,documented as a scribe. Any additional findings or plans will be noted.
--- NOTE | 2020-09-04 12:51 | P.PN ---
Subjective Progress Note Date: 09/04/20 Principal diagnosis: Abdominal pain, pancreatitis Patient was seen and examined sitting up in his bed. He has been tolerating ice chips without any difficulty. He states his abdominal pain is somewhat improved from yesterday however he still is using IV Dilaudid every 3-4 hours. He denies any nausea or vomiting. Lipase continues to trend down to 132 today. And he has negative, IgG4 is pending. Triglycerides were 104. Objective - Vital Signs Vital signs: Vital Signs Temp 97.9 F 09/04/20 07:00 Pulse 77 09/04/20 07:00 Resp 15 09/04/20 07:00 BP 123/72 09/04/20 07:00 Pulse Ox 97 09/04/20 07:00 Intake & Output 09/03/20 09/04/20 09/04/20 18:59 06:59 18:59 Weight 104.326 kg Other: # Voids 2 - Exam General appearance: The patient is alert, oriented, appears in no acute distress. HET: Head is normocephalic and atraumatic. Conjunctiva pink. Sclera anicteric. Neck: Supple without lymphadenopathy. Abdomen: Soft, the gastric tenderness, nondistended with bowel sounds. No guarding or rigidity. Extremities: Normal skin color and turgor. No pedal edema Skin: No rashes, no jaundice Neurological: No focal deficits. Alert and oriented 3. - Labs CBC & Chem 7: 09/02/20 22:59 09/04/20 06:02 Labs: Abnormal Lab Results - Last 24 Hours (Table) 09/03/20 09/03/20 09/03/20 Range/Units 09:11 11:44 20:57 POC Glucose (mg/dL) 104 H 101 H (75-99) mg/dL Amylase 161 H (30-110) U/L Lipase 1179 H (23-300) U/L 09/04/20 Range/Units 06:56 POC Glucose (mg/dL) 106 H (75-99) mg/dL Amylase (30-110) U/L Lipase (23-300) U/L Assessment and Plan (1) Pancreatitis Narrative/Plan: Narrative/Plan: 59-year-old male with multiple medical comorbidities presenting to the hospital for epigastric abdominal pain and severe in nature with associated elevation of lipase on presentation at 2339. No prior history of pancreatitis, I'll call use the past 20 years, no evidence of hepatobiliary disease on computed tomography scan of the abdomen. Currently being treated for acute uncomplicated pancreatitis. Current Visit: Yes Status: Acute Code(s): K85.90 - ACUTE PANCREATITIS WITHOUT NECROSIS OR INFECTION, UNSP SNOMED Code(s): 83270859 (2) Abdominal pain Current Visit: Yes Status: Acute Code(s): R10.9 - UNSPECIFIED ABDOMINAL PAIN SNOMED Code(s): 04017041 (3) Cirrhosis Current Visit: Yes Status: Acute Code(s): K74.60 - UNSPECIFIED CIRRHOSIS OF LIVER SNOMED Code(s): 68216223 (4) History of hepatitis C Current Visit: Yes Status: Acute Code(s): Z86.19 - PERSONAL HISTORY OF OTHER INFECTIOUS AND PARASITIC DISEASES SNOMED Code(s): 73197592510067 Plan: Supportive care Clear liquid diet, advance to full liquid diet for dinner Continue pain control, consider switching IV pain medication to oral Continue IV fluid hydration Encourage ambulation Extensive discussion with the patient regarding tobacco cessation MAGDY, triglyceride level and IgG ordered Patient has a follow-up appointment with Sara schneider nurse practitioner in 1-2 weeks, recommend outpatient follow-up MRI of pancreas in 4-6 weeks Thank you for this consultation, we will continue to follow Dr. Burton I agree with the dictator's note, documented as a scribe by Mehnaz Randolph.
[2020-09-04 14:24] VITALS: BMI 34.9
[2020-09-04 16:59] LABS: Glucose,Whole Blood 117 mg/dL (75-99)
[2020-09-04 20:40] LABS: Glucose,Whole Blood 148 mg/dL (75-99)
[2020-09-04] MEDS: LORATADINE 10 MG TAB PO SCH (21:30)
[2020-09-04] MEDS: ZOLPIDEM 5 MG TAB PO PRN (21:31)
[2020-09-05 06:55] LABS: Glucose,Whole Blood 126 mg/dL (75-99)
[2020-09-05] MEDS: HYDROmorphone 1 MG/ML 1 ML SYRINGE IVP PRN ×3 (07:43→17:38)
[2020-09-05] MEDS: PANTOPRAZOLE 40 MG/10 ML VIAL IVP SCH (07:46)
[2020-09-05] MEDS: lisinopriL 5 MG TAB PO SCH (07:46)
[2020-09-05] MEDS: LINAGLIPTIN 5 MG TABLET PO SCH (07:46)
[2020-09-05] MEDS: metFORMIN 500 MG TAB PO SCH ×2 (07:46→20:47)
--- NOTE | 2020-09-05 09:13 | P.PN ---
Subjective is is a 59-year-old gentleman with past medical history of diabetes mellitus II, hard of hearing, liver disease, muscle skeletal disorder, sleep apnea- wears CPAP/BiPAP, status post as post lumbar decompression fusion orthopedic surgeries, anxiety, depression, ongoing nicotine dependence, history of alcohol abuse reports last consumption 20 years ago, treated hepatitis C presented to the ER with worsening midepigastric abdominal pain radiating down to supraumbilical area, accompanied by nausea, no emesis. Reports new onset abdominal pain started approximately 2 weeks ago, continued to worsen. Continues to have normal bowel movements, no problems with urination. Denies fever or chills .Amylase 207, Lipase on admission 2339. Reports no previous pancreatitis. CT of abdomen and pelvis reporting nonobstructive renal calculi, appendix not seen, 1.5 cm umbilical hernia that contains fat, no acute abdomen/pelvis with no adverse change compared to prior exam. Denies chest pain, palpitations, shortness of breath. Denies lightheadedness, dizziness or focal deficits. Hematology, chemistry panels unremarkable. Amylase down to 161, lipase down to 1179. UA negative, caronavirus not detected. IV fluids initiated in the ER with GI consult placed. 09/04/2020 significant clinical improvement on bowel rest and IV fluid hydration, lipase down to 132. Reports abdominal pain improving, but has required Dilaudid every 3 hours with the last dose around 9:30. Denies nausea vomiting. Clear liquid diet to be initiated at lunch. Triglycerides 104, MAGDY screen negative, IgG pending. Afebrile. Maintaining O2 sats in the high 90s on 2 L nasal cannula. Evaluated by GI with recommendations noted and appreciated. Denies chest pain, palpitations or shortness of breath. 09/05/2020: Patient reports increased pain after eating breakfast this a.m. He had orange juice and oatmeal. He remains afebrile. Pulse oximetry remains 92- 94% on room air. Blood pressure controlled. Labs are pending for today. The patient denies any chest pains, pressures, shortness of breath. He complains of midepigastric abdominal pain. He complains of some nausea, but no emesis. Objective - Vital Signs Vital signs: Vital Signs Temp 98.2 F 09/05/20 08:31 Pulse 77 09/05/20 08:31 Resp 16 09/05/20 08:31 BP 123/75 09/05/20 08:31 Pulse Ox 92 L 09/05/20 08:31 Intake & Output 09/04/20 09/05/20 09/05/20 18:59 06:59 18:59 Intake Total 720 600 Balance 720 600 Weight 104.326 kg Intake: Oral 720 600 Other: # Voids 3 2 - Exam General: The patient is awake and alert, in minimal distress, and does not appear acutely ill. His CPAP is in place and he was sleeping. He was easily arousable. Neck: The neck is supple, there is no thyromegaly, lymphadenopathy, tenderness or JVD. Cardiovascular: S1S2 is normal, There is a regular rate and rhythm. No murmur, rub or gallop is appreciated. Respiratory: Lungs are coarse to auscultation bilaterally, respirations are non-labored, breath sounds are equal. Gastrointestinal: Soft, non-distended, abdomen without masses or organomegaly noted. There is no rebound or guarding present. Bowel sounds are unremarkable. Tender to midepigastric palpation. Musculoskeletal: Normal ROM, no tenderness, There is no pedal edema. There is no calf tenderness or swelling. No cords were appreciated. Neurological: CN II-XII intact, there are no obvious motor or sensory deficits. Coordination appears grossly intact. Speech is normal. Skin: Skin is warm and dry and no rashes or lesions are noted. - Labs CBC & Chem 7: 09/02/20 22:59 09/04/20 06:02 Labs: Abnormal Lab Results - Last 24 Hours (Table) 09/04/20 09/04/20 09/04/20 Range/Units 06:02 11:21 16:58 POC Glucose (mg/dL) 158 H 117 H (75-99) mg/dL Calcium 8.3 L (8.7-10.3) mg/dL AST 51 H (14-35) U/L Total Protein 5.9 L (6.2-8.2) g/dL Lipase 132 H (14-60) U/L 09/04/20 09/05/20 Range/Units 20:39 06:54 POC Glucose (mg/dL) 148 H 126 H (75-99) mg/dL Calcium (8.7-10.3) mg/dL AST (14-35) U/L Total Protein (6.2-8.2) g/dL Lipase (14-60) U/L Assessment and Plan (1) H/O ETOH abuse Current Visit: Yes Status: Acute Code(s): F10.11 - ALCOHOL ABUSE, IN REMISSION SNOMED Code(s): 036842242 (2) Type 2 diabetes mellitus without complications Current Visit: Yes Status: Acute Code(s): E11.9 - TYPE 2 DIABETES MELLITUS W ITHOUT COMPLICATIONS SNOMED Code(s): 005755086 (3) Lumbar back pain Current Visit: Yes Status: Acute Code(s): M54.5 - LOW BACK PAIN SNOMED Code(s): 153631154 (4) Tobacco abuse Current Visit: Yes Status: Acute Code(s): Z72.0 - TOBACCO USE SNOMED Code(s): 980105015 (5) Obstructive sleep apnea on CPAP Current Visit: Yes Status: Acute Code(s): G47.33 - OBSTRUCTIVE SLEEP APNEA (ADULT) (PEDIATRIC); Z99.89 - DEPENDENCE ON OTHER ENABLING MACHINES AND DEVICES SNOMED Code(s): 31148056 (6) Abdominal pain Current Visit: Yes Status: Acute Code(s): R10.9 - UNSPECIFIED ABDOMINAL PAIN SNOMED Code(s): 63887810 (7) Cirrhosis Current Visit: Yes Status: Acute Code(s): K74.60 - UNSPECIFIED CIRRHOSIS OF LIVER SNOMED Code(s): 74053228 (8) History of hepatitis C Current Visit: Yes Status: Acute Code(s): Z86.19 - PERSONAL HISTORY OF OTHER INFECTIOUS AND PARASITIC DISEASES SNOMED Code(s): 06930653994072 (9) Pancreatitis Current Visit: Yes Status: Acute Code(s): K85.90 - ACUTE PANCREATITIS WITHOUT NECROSIS OR INFECTION, UNSP SNOMED Code(s): 00883617 Plan: Back his diabetic down clear liquids at this time. He'll remain on Tylenol and/or hydromorphone for pain. Continue on her gentamicin and metformin for his diabetes Continue on pantoprazole. Repeat labs in a.m. Wait on further GI recommendations. Reevaluate next 24 hours
[2020-09-05] MEDS: SODIUM CHLORIDE 0.9% 1,000 ML IV SCH ×3 (10:18→23:43)
[2020-09-05 11:41] LABS: Glucose,Whole Blood 107 mg/dL (75-99)
[2020-09-05 11:41] LABS: African American GFR (CKD) 114.9 (60.0-200.0); Albumin/Globulin Ratio 1.82 (1.60-3.17); Anion Gap 5.5 mmol/L (4.00-12.00); Calcium 8.8 mg/dL (8.7-10.3); Carbon Dioxide 27.5 mmol/L (21.6-31.8); Globulin 2.2 g/dL (1.6-3.3); Non-African American GFR(CKD) 99.2 (60.0-200.0); Total Bilirubin 0.9 mg/dL (0.2-1.2); Total Protein 6.2 g/dL (6.2-8.2)
[2020-09-05 16:38] LABS: Glucose,Whole Blood 119 mg/dL (75-99)
[2020-09-05] MEDS: LORATADINE 10 MG TAB PO SCH (20:15)
[2020-09-05 20:34] LABS: Glucose,Whole Blood 98 mg/dL (75-99)
[2020-09-05] MEDS: ZOLPIDEM 5 MG TAB PO PRN (21:29)
[2020-09-06] MEDS: SODIUM CHLORIDE 0.9% 1,000 ML IV SCH (03:02)
[2020-09-06 04:07] VITALS: TEMP 98.2
[2020-09-06 06:51] LABS: Glucose,Whole Blood 124 mg/dL (75-99)
[2020-09-06] MEDS: lisinopriL 5 MG TAB PO SCH (07:49)
[2020-09-06] MEDS: LINAGLIPTIN 5 MG TABLET PO SCH (07:49)
[2020-09-06] MEDS: PANTOPRAZOLE 40 MG/10 ML VIAL IVP SCH (07:49)
[2020-09-06] MEDS: metFORMIN 500 MG TAB PO SCH (07:49)
[2020-09-06 08:29] VITALS: BP 147/75; PULSE 63; RESP 19
[2020-09-06 10:10] LABS: African American GFR (CKD) 114.9 (60.0-200.0); Albumin/Globulin Ratio 1.74 (1.60-3.17); Anion Gap 7.5 mmol/L (4.00-12.00); BUN/Creat Ratio 8.75 Ratio (12.00-20.00); Carbon Dioxide 28.5 mmol/L (21.6-31.8); Globulin 2.3 g/dL (1.6-3.3); Magnesium 2.1 mg/dL (1.5-2.4); Non-African American GFR(CKD) 99.2 (60.0-200.0); Potassium 4.6 mmol/L (3.5-5.5); Total Bilirubin 1.1 mg/dL (0.2-1.2); Total Protein 6.3 g/dL (6.2-8.2)
--- NOTE | 2020-09-06 10:28 | P.PN ---
Subjective Progress Note Date: 09/05/20 Principal diagnosis: Acute pancreatitis Patient seen lying in bed today. He did have some increased abdominal pain after eating this morning and was put back on a clear liquid diet. No nausea vomiting reported. Objective - Vital Signs Vital signs: Vital Signs Temp 98.2 F 09/05/20 08:31 Pulse 77 09/05/20 08:31 Resp 16 09/05/20 08:31 BP 123/75 09/05/20 08:31 Pulse Ox 92 L 09/05/20 08:31 Intake & Output 09/04/20 09/05/20 09/05/20 18:59 06:59 18:59 Intake Total 720 600 Balance 720 600 Weight 104.326 kg Intake: Oral 720 600 Other: # Voids 3 2 - Exam On physical examination, patient appears comfortable in no apparent distress. HEAD: Normocephalic, atraumatic. EYES: No scleral icterus. No conjunctival injection. MOUTH: No lesions, tongue midline. NECK: Trachea midline, no gross abnormalities. ABDOMEN: Soft, mildly tender to palpation. Bowel sounds are positive. No organomegaly. No guarding or rigidity. EXTREMITIES: No pedal edema. SKIN: No rashes, no jaundice. NEUROLOGIC: Alert and oriented x3. No focal deficits. - Labs CBC & Chem 7: 09/02/20 22:59 09/06/20 06:03 Labs: Abnormal Lab Results - Last 24 Hours (Table) 09/04/20 09/04/20 09/05/20 Range/Units 16:58 20:39 06:54 POC Glucose (mg/dL) 117 H 148 H 126 H (75-99) mg/dL Assessment and Plan (1) Pancreatitis Narrative/Plan: 59-year-old male with multiple medical comorbidities presenting to the hospital for epigastric abdominal pain and severe in nature with associated elevation of lipase on presentation at 2339. No prior history of pancreatitis, I'll call use the past 20 years, no evidence of hepatobiliary disease on computed tomography scan of the abdomen. Currently being treated for acute uncomplicated pancreatitis. Current Visit: Yes Status: Acute Code(s): K85.90 - ACUTE PANCREATITIS WITHOUT NECROSIS OR INFECTION, UNSP SNOMED Code(s): 45575517 (2) History of hepatitis C Current Visit: Yes Status: Acute Code(s): Z86.19 - PERSONAL HISTORY OF OTHER INFECTIOUS AND PARASITIC DISEASES SNOMED Code(s): 93987023937397 (3) Cirrhosis Current Visit: Yes Status: Acute Code(s): K74.60 - UNSPECIFIED CIRRHOSIS OF LIVER SNOMED Code(s): 16821140 (4) Abdominal pain Current Visit: Yes Status: Acute Code(s): R10.9 - UNSPECIFIED ABDOMINAL PAIN SNOMED Code(s): 55649043 Plan: Supportive care Clear liquid diet, advance as tolerated Continue pain control Continue IV fluid hydration Encourage ambulation Extensive discussion with the patient regarding tobacco cessation Repeat amylase and lipase improved MAGDY, triglyceride level and IgG with no evidence of autoimmune pancreatitis Thank you for allowing us to participate in the care of the patient
--- NOTE | 2020-09-06 11:05 | P.DS ---
Providers Date of admission: 09/03/20 00:55 Expected date of discharge: 09/06/20 Attending physician: Franki Garvey Consults: 09/03/20 01:23 Consult Physician Routine Consulting Provider: Khoa Burton Consult Reason/Comments: pancreatitis abdominal pain Do you want consulting provider notified?: Yes Primary care physician: Franki Garvey - Discharge Diagnosis(es) (1) Pancreatitis Current Visit: Yes Status: Acute (2) H/O ETOH abuse Current Visit: Yes Status: Acute (3) Type 2 diabetes mellitus without complications Current Visit: Yes Status: Acute (4) Lumbar back pain Current Visit: Yes Status: Acute (5) Tobacco abuse Current Visit: Yes Status: Acute (6) Obstructive sleep apnea on CPAP Current Visit: Yes Status: Acute (7) Abdominal pain Current Visit: Yes Status: Acute (8) Cirrhosis Current Visit: Yes Status: Acute (9) History of hepatitis C Current Visit: Yes Status: Acute Hospital Course: This is a 59-year-old gentleman with past medical history of diabetes mellitus II, hard of hearing, liver disease, muscle skeletal disorder, sleep apnea- wears CPAP/BiPAP, status post as post lumbar decompression fusion orthopedic surgeri es, anxiety, depression, ongoing nicotine dependence, history of alcohol abuse reports last consumption 20 years ago, treated hepatitis C presented to the ER with worsening midepigastric abdominal pain radiating down to supraumbilical area, accompanied by nausea, no emesis. Reports new onset abdominal pain started approximately 2 weeks ago, continued to worsen. Continues to have normal bowel movements, no problems with urination. Denies fever or chills .Amylase 207, Lipase on admission 2339. Reports no previous pancreatitis. CT of abdomen and pelvis reporting nonobstructive renal calculi, appendix not seen, 1.5 cm umbilical hernia that contains fat, no acute abdomen/pelvis with no adverse change compared to prior exam. Denies chest pain, palpitations, shortness of breath. Denies lightheadedness, dizziness or focal deficits. Hematology, chemistry panels unremarkable. Amylase down to 161, lipase down to 1179. UA negative, caronavirus not detected. IV fluids initiated in the ER wi th GI consult placed. 09/04/2020 significant clinical improvement on bowel rest and IV fluid hydration, lipase down to 132. Reports abdominal pain improving, but has required Dilaudid every 3 hours with the last dose around 9:30. Denies nausea vomiting. Clear liquid diet to be initiated at lunch. Triglycerides 104, MAGDY screen negative, IgG pending. Afebrile. Maintaining O2 sats in the high 90s on 2 L nasal cannula. Evaluated by GI with recommendations noted and appreciated. Denies chest pain, palpitations or shortness of breath. 09/05/2020: Patient reports increased pain after eating breakfast this a.m. He had orange juice and oatmeal. He remains afebrile. Pulse oximetry remains 92- 94% on room air. Blood pressure controlled. Labs are pending for today. The patient denies any chest pains, pressures, shortness of breath. He complains of midepigastric abdominal pain. He complains of some nausea, but no emesis. 09/06/2020: Patient reports much less pain. His lipase is remaining normal again today. He remains afebrile. We discussed his laboratory studies Dr. Burton ordered showing no evidence of autoimmune pancreatitis. We discussed smoking cessation. He took Chantix in the past successfully quit. He is currently on a clear liquid diet and tolerating this well. He would like to go home. He will remain on a clear liquid diet at home for the next 24 hours and then advance type. He'll follow-up in the office in the next few days. He has Percocet at home for pain if needed for his history of back pain. Patient Condition at Discharge: Fair Plan - Discharge Summary Discharge Rx Participant: No New Discharge Prescriptions: New Varenicline [Chantix Starter Pack] 0.5 mg PO DIRECTED #53 tab Acetaminophen Tab [Tylenol] 650 mg PO Q6HR PRN tab PRN Reason: Mild Pain Or Fever > 100.5 Pantoprazole Sodium [Protonix] 40 mg PO DAILY #30 tablet. Continue Citalopram Hydrobromide [Citalopram HBr] 20 mg PO QAM sitaGLIPtin [Januvia] 100 mg PO DAILY Cetirizine HCl 10 mg PO HS lisinopriL [Zestril] 5 mg PO QAM metFORMIN HCL 1,000 mg PO BID oxyCODONE-APAP 10-325MG [Percocet 10-325 mg] 1 tab PO TID PRN PRN Reason: Pain Discharge Medication List Citalopram Hydrobromide [Citalopram HBr] 20 mg PO QAM 09/28/17 [History] Cetirizine HCl 10 mg PO HS 11/13/19 [History] lisinopriL [Zestril] 5 mg PO QAM 11/13/19 [History] sitaGLIPtin [Januvia] 100 mg PO DAILY 11/13/19 [History] metFORMIN HCL 1,000 mg PO BID 04/13/20 [History] oxyCODONE-APAP 10-325MG [Percocet 10-325 mg] 1 tab PO TID PRN 05/18/20 [History] Acetaminophen Tab [Tylenol] 650 mg PO Q6HR PRN tab 09/06/20 [Rx] Pantoprazole Sodium [Protonix] 40 mg PO DAILY #30 tablet. 09/06/20 [Rx] Varenicline [Chantix Starter Pack] 0.5 mg PO DIRECTED #53 tab 09/06/20 [Rx] Follow up Appointment(s)/Referral(s): Franki Garvey MD [Primary Care Provider] - 1-2 days Discharge Disposition: HOME SELF-CARE
--- NOTE | 2020-09-06 12:26 | P.PN ---
Subjective Progress Note Date: 09/06/20 Principal diagnosis: Acute pancreatitis Patient seen lying in bed today. He is reporting improvement in his abdominal pain and tolerating diet. Objective - Vital Signs Vital signs: Vital Signs Temp 98.2 F 09/06/20 08:00 Pulse 63 09/06/20 08:00 Resp 19 09/06/20 08:00 BP 147/75 09/06/20 08:00 Pulse Ox 96 09/06/20 08:00 Intake & Output 09/05/20 09/06/20 09/06/20 18:59 06:59 18:59 Intake Total 2760 600 Balance 2760 600 Intake: Intake, IV Titration 1560 Amount Sodium Chloride 0.9% 1, 1560 000 ml @ 130 mls/hr IV . Q7H42M [facility] Rx#:[id number] Oral 1200 600 Other: Voiding Method Toilet # Voids 4 2 - Exam On physical examination, patient appears comfortable in no apparent distress. HEAD: Normocephalic, atraumatic. EYES: No scleral icterus. No conjunctival injection. MOUTH: No lesions, tongue midline. NECK: Trachea midline, no gross abnormalities. ABDOMEN: Soft, mildly tender to palpation. Bowel sounds are positive. No organomegaly. No guarding or rigidity. EXTREMITIES: No pedal edema. SKIN: No rashes, no jaundice. NEUROLOGIC: Alert and oriented x3. No focal deficits. - Labs CBC & Chem 7: 09/02/20 22:59 09/06/20 06:03 Labs: Abnormal Lab Results - Last 24 Hours (Table) 09/05/20 09/05/20 09/05/20 Range/Units 07:09 11:38 16:37 BUN 8.0 L (9.0-27.0) mg/dL BUN/Creatinine Ratio 10.00 L (12.00-20.00) Ratio Glucose 123 H (70-110) mg/dL POC Glucose (mg/dL) 107 H 119 H (75-99) mg/dL AST 46 H (14-35) U/L Lipase 110 H (14-60) U/L 09/06/20 09/06/20 Range/Units 06:03 06:49 BUN 7.0 L (9.0-27.0) mg/dL BUN/Creatinine Ratio 8.75 L (12.00-20.00) Ratio Glucose 117 H (70-110) mg/dL POC Glucose (mg/dL) 124 H (75-99) mg/dL AST 43 H (14-35) U/L Lipase (14-60) U/L Assessment and Plan (1) Pancreatitis Narrative/Plan: 59-year-old male with multiple medical comorbidities presenting to the hospital for epigastric abdominal pain and severe in nature with associated elevation of lipase on presentation at 2339. No prior history of pancreatitis, I'll call use the past 20 years, no evidence of hepatobiliary disease on computed tomography scan of the abdomen. Currently being treated for acute uncomplicated pancreatitis. Current Visit: Yes Status: Acute Code(s): K85.90 - ACUTE PANCREATITIS WITHOUT NECROSIS OR INFECTION, UNSP SNOMED Code(s): 82543084 (2) History of hepatitis C Current Visit: Yes Status: Acute Code(s): Z86.19 - PERSONAL HISTORY OF OTHER INFECTIOUS AND PARASITIC DISEASES SNOMED Code(s): 92745591173678 (3) Cirrhosis Current Visit: Yes Status: Acute Code(s): K74.60 - UNSPECIFIED CIRRHOSIS OF LIVER SNOMED Code(s): 76265345 (4) Abdominal pain Current Visit: Yes Status: Acute Code(s): R10.9 - UNSPECIFIED ABDOMINAL PAIN SNOMED Code(s): 10996995 Plan: Supportive care Okay for low-fat sodium instructed diet as tolerated Continue pain control Continue IV fluid hydration Encourage ambulation Extensive discussion with the patient regarding tobacco cessation Repeat amylase and lipase improved MAGDY, triglyceride level and IgG with no evidence of autoimmune pancreatitis Thank you for allowing us to participate in the care of the patient, okay for discharge or otherwise medically stable, follow up in the GI clinic as scheduled
== END 2020-09-06 13:27 | disposition home or self-care (01) | DRG 440 ==
LOC: EC 22:28 → OBSVTOIN 09-03 00:55 → 6NMEDSUR 09-03 00:55 → 4SSUR 09-03 09:49
PROVIDERS: ADMIT Family Medicine; ATTEND Family Medicine
DX: K85.90 Acute pancreatitis without necrosis or infection, unspecified (principal); K74.60 Unspecified cirrhosis of liver; E11.9 Type 2 diabetes mellitus without complications; Z20.822 Contact with and (suspected) exposure to COVID-19; F32.9 Major depressive disorder, single episode, unspecified; G47.33 Obstructive sleep apnea (adult) (pediatric); G89.29 Other chronic pain; M54.9 Dorsalgia, unspecified; E78.5 Hyperlipidemia, unspecified; H91.92 Unspecified hearing loss, left ear; F41.9 Anxiety disorder, unspecified; N20.0 Calculus of kidney; K42.9 Umbilical hernia without obstruction or gangrene; K57.90 Diverticulosis of intestine, part unspecified, without perforation or abscess without bleeding; M48.00 Spinal stenosis, site unspecified; L30.9 Dermatitis, unspecified; Z68.35 Body mass index [BMI] 35.0-35.9, adult; E66.9 Obesity, unspecified; F17.200 Nicotine dependence, unspecified, uncomplicated; Z71.6 Tobacco abuse counseling; F10.11 Alcohol abuse, in remission; Z79.84 Long term (current) use of oral hypoglycemic drugs; Z79.899 Other long term (current) drug therapy; Z98.1 Arthrodesis status; Z86.19 Personal history of other infectious and parasitic diseases; Z87.442 Personal history of urinary calculi; Z87.19 Personal history of other diseases of the digestive system; Z87.39 Personal history of other diseases of the musculoskeletal system and connective tissue; Z86.010 Personal history of colon polyps; Z86.69 Personal history of other diseases of the nervous system and sense organs; Z80.8 Family history of malignant neoplasm of other organs or systems; Z82.61 Family history of arthritis
CPT/HCPCS: 36415; 74177; 80053; 81003; 82150; 82787; 83605; 83690; 83735; 84478; 85025; 86038; 87635; 96361; 96374; 96375; 96376; 99285

== ENCOUNTER 2020-09-11 08:41 | Day surgery (SDC) | payer MEDICARE ==
[2020-09-11 09:30] VITALS: RESP 16; TEMP 98
[2020-09-11 09:39] LABS: Glucose,Whole Blood 109 mg/dL (75-99)
[2020-09-11] MEDS ORDERED: LACTATED RINGERS 1,000 ML IV ONE (09:40)
[2020-09-11] MEDS ORDERED: LIDOCAINE 1% (10MG/ML) FOR IV START INTRADERMA ONE (09:40)
[2020-09-11] MEDS ORDERED: MIDAZOLAM 2 MG/2 ML VIAL ONE (09:55)
[2020-09-11] MEDS ORDERED: fentaNYL (PF) 50 MCG/ML 2 ML AMP ONE (09:55)
[2020-09-11] MEDS ORDERED: ROPIVACAINE 5MG/ML 20ML VIAL ONE (09:55)
[2020-09-11] MEDS ORDERED: methylPREDNISolone ACETATE 40 MG/ML 1 ML VIAL ONE (09:55)
--- NOTE | 2020-09-11 10:14 | P.PCN ---
Date of Procedure: 09/11/20 Procedure(s) Performed: PREOPERATIVE DIAGNOSIS : 1- Lumbar spondylosis with Facet Arthropathy without myelopathy . POSTOPERATIVE DIAGNOSIS: 1- Lumbar spondylosis with Facet Arthropathy without myelopathy . PROCEDURE: Diagnostic bilateral L4 , and L5 medial branch block under fluoroscopy guidance(fluoroscopy images available in the radiology Department ) ( To target the facet joint between bilateral L5-S1 ) ANESTHESIA: Monitored anesthesia care as per anesthesia department. EBL: Minimal COMPLICATION: None PROCEDURE INDICATION: Chronic low back pain secondary to Facet arthropathy unresponsive to conservative treatment. PROCEDURE DESCRIPTION: the patient was seen and identified in the preop holding area , risks and benefits and possible complications of the procedure and alternative were discussed with the patient, and the patient agreed to proceed with the procedure and signed the consent and vital signs monitored during the procedure and fluoroscopy was used to maximize the benefit and accuracy of the needle placement, and sedation was given to decrease patient anxiety, patient was taken to the procedure room and placed in prone position vital signs monitored in the back prepped with chlorhexidine X3 then under strict sterile technique using a right oblique fluoroscopy ,the junction of the transverse process and the superior articulating process of the right L4 , and L5 vertebra which corresponding to the fluoroscopy image of the eye of the Raul dog on the block side for the medial branches and subsequently , after local infiltration of skin and subcu tissuies with Ropivacaine 0.5 % , one mL at each level ,then 22-gauge Quincke-type needles , 2 needle was used , each one of them placed at the junction of the base of the transverse process and the superior articular process at the appropriate level, and the needle was advanced until the periosteum contacted, needle placement confirmed with AP oblique and lateral view and after appropriate needle placement confirmed, and after negative aspiration for heme and CSF and there was no paresthesia 1 mL of Ropivacaine 0.5% mixed with 20 mg Depo-Medrol , then half mL injected at each level after negative aspiration the needle subsequently removed and the same procedure repeated for the left side at left side at L4 and L5 levels. At the end of the procedure and the needles removed and a bandage applied after the skin was cleaned the cleaning solution patient taken to recovery room in stable condition and monitors in the recovery room for 20-30 minutes and discharged home in stable condition after discharge criteria met and patient will follow up with the pain clinic in 2-4 weeks
[2020-09-11] MEDS ORDERED: IV FLUID CONTINUATION 600 ML IV ONE (10:19)
[2020-09-11 10:39] VITALS: BP 119/70; PULSE 72
--- NOTE | 2020-09-11 15:14 | FL ---
Fluoroscopy HISTORY: Pain 7 seconds fluoroscopy time supplied to the referring clinician. 3 intraoperative C-arm images docume nt the procedure. See dictated report from anesthesia.
== END 2020-09-11 10:54 | disposition home or self-care (01) ==
LOC: ORPAIN 08:41
PROVIDERS: ATTEND Specialist
DX: G89.29 Other chronic pain (principal); M47.816 Spondylosis without myelopathy or radiculopathy, lumbar region; G47.33 Obstructive sleep apnea (adult) (pediatric); F17.200 Nicotine dependence, unspecified, uncomplicated; K21.9 Gastro-esophageal reflux disease without esophagitis; Z79.899 Other long term (current) drug therapy; Z79.84 Long term (current) use of oral hypoglycemic drugs; Z79.891 Long term (current) use of opiate analgesic
CPT/HCPCS: 64493; J2250; J1030; J3010; J2795

== ENCOUNTER → 2020-10-07 | Outpatient (CLI) | payer MEDICARE ==
[2020-10-07 11:07] VITALS: BP 125/75; PULSE 90; RESP 18; TEMP 98.4
--- NOTE | 2020-10-07 15:21 | P.PN ---
Subjective Progress Note Date: 10/07/20 This is a follow-up visit for this 59 years old male with a chronic history of severe low back pain his diagnosed with postlaminectomy pain syndrome lumbar area, and lumbar spondylosis with lumbar facet arthropathy, and bilateral sacroiliac joint dysfunction, recently we have done diagnostic medial branch block at L5-S1, he get more than 80% relief of his low back pain after the first block, and he couldn't 100% pain relief after the second block , the pain relief was only for short-term, she didn't report the that the pain is constant and increases with any activity he denies any motor or sensory deficits but he reported that the intensity of the pain interferes with the quality of life Physical Examinations : -Constitutiona : Cooperative , not in acute distress . -HEENT : nech : supple , no Lymphadenopathy , normal thyroid size . : eyes : no ptosis , no icterus, no photophobia . - neurologic : Cranial nerve II to XII intact , no focal neurological deffecit . -psychatric : alert , oriented X 3 , appropriate affect , intact judgment and insight . -Lymphatic : no Lymphadenopathy . - musculoskeltal : Lumber spine moter stegnth lower extremities ,thigh and legs 5/5 Right side , 5/5 Left side deep tendon reflexes : normal Knee Jerk , normal ankle Jerk lumber facet Loading Test =positive Right , positive Left Range of motion of the lumbar spine Flexion 30 degrees, extension 10 degrees strait leg raising test = positive at 30 degree bilaterally Fabere test= positive Right , and positive LT . Sever tenderness over the Sacroiliac joint on the Right , and Left sides Gaenslen test= positive right ,and positive left . Seated flexion test= positive right ,and positive Left . Distraction test= positive bilaterally Assessment and Plan Plan: Assessment and plan=1-lumbar spondylosis with lumbar facet arthropathy Patient get 80% improvement of his low back pain after first diagnostic medial branch block 2-postlaminectomy pain syndrome lumbar area. 3-bilateral sacroiliitis. Patient could benefit from RFA bilateral facet injection at L5-S1 ( he had 80% pain relief after the first diagnostic block and he got 100%. A after the second diagnostic block ) - PQRS measures = - Patient's medications are documented in the chart. -Tobacco use is positive ,and counseling.Given. -Patient's has not received pneumococcal vaccine. -Advanced care planning discussed, patient not eligible. -Opiate contract not signed. -Pain positive and follow-up visit/procedure is scheduled. -Patient's blood pressure measured [ 125/75 ] , and documented in the record ,and patient will follow up with the primary care. -Patient's weight was measured and body mass index [32.3 ] above the normal limits and counseling was done. and patient instructed to follow-up with the primary care physician. -Patient was not identified as an unhealthy alcohol user Objective - Vital Signs Vital signs: Vital Signs Temp 98.4 F 10/07/20 11:02 Pulse 90 10/07/20 11:02 Resp 18 10/07/20 11:02 BP 125/75 10/07/20 11:02 Pulse Ox 95 10/07/20 11:02
== END ==
LOC: PNWHC3 10:54
PROVIDERS: ATTEND Specialist
DX: M47.816 Spondylosis without myelopathy or radiculopathy, lumbar region (principal); M96.1 Postlaminectomy syndrome, not elsewhere classified; M46.1 Sacroiliitis, not elsewhere classified; F17.200 Nicotine dependence, unspecified, uncomplicated
CPT/HCPCS: 99211

== ENCOUNTER 2020-10-30 05:58 | Day surgery (SDC) | payer MEDICARE ==
[2020-10-29 09:18] VITALS: BMI 33.4
[2020-10-30] MEDS ORDERED: LIDOCAINE 1% (10MG/ML) FOR IV START INTRADERMA ONE (06:10)
[2020-10-30] MEDS ORDERED: LACTATED RINGERS 1,000 ML IV ONE (06:30)
[2020-10-30 06:37] VITALS: RESP 16; TEMP 97.4
[2020-10-30 06:41] LABS: Glucose,Whole Blood 104 mg/dL (75-99)
[2020-10-30] MEDS ORDERED: LIDOCAINE 1% INJ 10MG/ML (20 ML MDV) ONE (07:01)
[2020-10-30] MEDS ORDERED: MIDAZOLAM 2 MG/2 ML VIAL ONE (07:01)
[2020-10-30] MEDS ORDERED: fentaNYL (PF) 50 MCG/ML 2 ML AMP ONE (07:01)
[2020-10-30] MEDS ORDERED: ROPIVACAINE 5MG/ML 20ML VIAL ONE (07:01)
--- NOTE | 2020-10-30 07:28 | P.PCN ---
Date of Procedure: 10/30/20 Description of Procedure: PREOPERATIVE DIAGNOSIS: Lumbar Spondylosis POSTOPERATIVE DIAGNOSIS: Same PROCEDURES: Radiofrequency ablation of the L4, L5 medial branches with fluoroscopic guidance bilaterally SURGEON: James Lindo MD. ANESTHESIA: Lidocaine 1% 5 mL, Monitored anesthesia care with anesthesia team EBL: Minimal Fluoroscopy was used for the procedure and images were saved in the radiology portion of the chart. PROCEDURE INDICATION: The patient with low back pain secondary to lumbar facet arthropathy who had more than 50% relief of pain with previous diagnostic lumbar medial branch block X2. PROCEDURE DESCRIPTION / TECHNIQUE: The patient was seen and identified in the preoperative area. Risks, benefits, complications, including but not limited to risk of infection ,bleeding , allergic reactions to the medications and incomplete pain relief , and alternatives were discussed with the patient, the patient agreed to proceed with the procedure and signed the consent. IV was started. The operative site was marked. Patient was taken to the OR and time out was completed. The patient was placed in the prone position on the procedure table. The lumbar area was prepped and draped in the usual sterile fashion. . Vital signs were closely monitored during the procedure .IV sedation was used during the procedure to decrease patients anxiety. Using AP and then oblique fluoroscopy, the "eye of the Raul dog" corresponding to the connection between the superior and transverse articular processes of the L4 and L5 as well as the sacral ala were identified, marked, and localized with 1% lidocaine. Subsequently, an 18 guage 100 radiofrequency cannula with a 10-mm active tip was advanced guided by fluoroscopy to the identified target at each site. Needle positioning was confirmed on AP, oblique and lateral fluoroscopy. Motor testing at 2.5 Hz was done with paraspinal muscle stimulation only, and no radicular symptoms down the legs. Then 1 mL 0.5% ropivacaine was injected in each site. Radiofrequency thermocoagulation at 80 degrees celsius for 90 seconds was then performed. [place] were removed. Sterile dressings were applied. COMPLICATIONS: No acute complications. DISPOSITION / PLANS: The patient was placed in a supine position and transferred to the recovery area in a stable condition for observation and was discharged from the recovery room after meeting discharge criteria. Home discharge instructions given to the patient by the staff. The patient will follow up in clinic in 4 weeks.
[2020-10-30] MEDS ORDERED: IV FLUID CONTINUATION 1,000 ML IV ONE (07:48)
[2020-10-30 07:49] VITALS: BP 107/66; PULSE 72
--- NOTE | 2020-10-30 08:12 | FL ---
EXAMINATION TYPE: FL guided pain mgmt statistic DATE OF EXAM: 10/30/2020 CLINICAL HISTORY: Low back pain. TECHNIQUE: Fluoroscopy. COMPARISON: None. FINDINGS: Fluoroscopic guidance was provided during pain relief procedure performed by Dr. Lindo . A total of 47 seconds of fluoroscopic time was utilized during the procedure and 6 spot images are a cquired. Images acquired shows needle localization at several levels in the low spine and evidence o f prior surgery. IMPRESSION: As Above.
== END 2020-10-30 08:04 | disposition home or self-care (01) ==
LOC: ORPAIN 05:58
PROVIDERS: ATTEND Anesthesiology
DX: G89.29 Other chronic pain (principal); M47.816 Spondylosis without myelopathy or radiculopathy, lumbar region; I10 Essential (primary) hypertension; G47.33 Obstructive sleep apnea (adult) (pediatric); F17.200 Nicotine dependence, unspecified, uncomplicated; E11.9 Type 2 diabetes mellitus without complications; K21.9 Gastro-esophageal reflux disease without esophagitis; Z79.84 Long term (current) use of oral hypoglycemic drugs; Z79.899 Other long term (current) drug therapy
CPT/HCPCS: 64635; J2250; J2001; J3010; J2795

== ENCOUNTER → 2020-11-25 | Outpatient (CLI) | payer MEDICARE ==
--- NOTE | 2020-11-25 10:42 | P.PAINPG ---
Subjective Progress Note Date: 11/25/20 This is a follow-up visit for this 59 years old male with a chronic history of severe low back pain his diagnosed with postlaminectomy pain syndrome lumbar area, and lumbar spondylosis with lumbar facet arthropathy, and bilateral sacroiliac joint dysfunction, recently we have done bilateral RFA L5-S1. He said he had significant relief from this procedure. Pain is currently a 1 out of 10 and he is very happy. He had some questions in regards to how many times can be repeated, I told him generally speaking we can repeat the procedure until 6 months or later. He said he'll call as needed. Physical Examinations : -Constitutiona : Cooperative , not in acute distress . -HEENT : nech : supple , no Lymphadenopathy , normal thyroid size . : eyes : no ptosis , no icterus, no photophobia . - neurologic : Cranial nerve II to XII intact , no focal neurological deffecit . -psychatric : alert , oriented X 3 , appropriate affect , intact judgment and insight . -Lymphatic : no Lymphadenopathy . - musculoskeltal : Lumber spine moter stegnth lower extremities ,thigh and legs 5/5 Right side , 5/5 Left side deep tendon reflexes : normal Knee Jerk , normal ankle Jerk lumber facet Loading Test =positive Right , positive Left Range of motion of the lumbar spine Flexion 30 degrees, extension 10 degrees strait leg raising test = positive at 30 degree bilaterally Fabere test= positive Right , and positive LT . Sever tenderness over the Sacroiliac joint on the Right , and Left sides Gaenslen test= positive right ,and positive left . Seated flexion test= positive right ,and positive Left . Distraction test= positive bilaterally Assessment and Plan Plan: Assessment and plan=1-lumbar spondylosis with lumbar facet arthropathy Patient get 80% improvement of his low back pain after first diagnostic medial branch block 2-postlaminectomy pain syndrome lumbar area. 3-bilateral sacroiliitis. Patient will call as needed for repeat RFA. I have spent 23 minutes on review of the records, review of the imaging available, [id number] interaction with the patient, medication management, follow-up care coordination and record creation. - PQRS measures = - Patient's medications are documented in the chart. -Tobacco use is positive ,and counseling.Given. -Patient's has not received pneumococcal vaccine. -Advanced care planning discussed, patient not eligible. -Opiate contract not signed. -Pain positive and follow-up visit/procedure is scheduled. -Patient's blood pressure measured [ 125/75 ] , and documented in the record ,and patient will follow up with the primary care. -Patient's weight was measured and body mass index [32.3 ] above the normal limits and counseling was done. and patient instructed to follow-up with the primary care physician. -Patient was not identified as an unhealthy alcohol user PQRS Measure Charge Sheet PQRS Narrative: Smoking Status Current every day smoker Pain Intensity [None] 0 Scale Used Numeric (1 - 10) Hx Alcohol Use (MH) No Home Medications: Ambulatory Orders lisinopriL [Zestril] 5 mg PO QAM 11/13/19 sitaGLIPtin [Januvia] 100 mg PO DAILY 11/13/19 metFORMIN HCL [Glucophage] 500 mg PO BID 04/13/20 oxyCODONE-APAP 10-325MG [Percocet 10-325 mg] 1 tab PO TID PRN 05/18/20 Acetaminophen Tab [Tylenol] 650 mg PO Q6HR PRN tab 09/06/20 Pantoprazole Sodium [Protonix] 40 mg PO DAILY #30 tablet.dr 09/06/20 Fluticasone Nasal [place] [Flonase Nasal [place]] 2 spr EA NOSTRIL DAILY 10/02/20 Controlled Substance Measures - Controlled Substance Measures Is patient prescribed a controlled substance at discharge?: No
[2020-11-25 10:43] VITALS: BP 135/80; PULSE 80; RESP 18; TEMP 98
== END | disposition home or self-care (01) ==
LOC: PNWHC3 10:29
PROVIDERS: ATTEND Anesthesiology
DX: M47.896 Other spondylosis, lumbar region (principal); M46.1 Sacroiliitis, not elsewhere classified; G89.18 Other acute postprocedural pain; M54.5 Low back pain
CPT/HCPCS: 99211

== ENCOUNTER 2020-11-27 22:10 | Emergency (ER) | payer MEDICARE ==
[2020-11-27 22:24] VITALS: TEMP 98
[2020-11-27] MEDS ORDERED: LIDOCAINE 1%-EPI 1:100,000 20 ML VIAL SQ STA (22:45)
--- NOTE | 2020-11-27 23:12 | ED ---
Skin/Abscess/FB HPI - General Chief complaint: Skin/Abscess/Foreign Body Stated complaint: Sliver in R hand Time Seen by Provider: 11/27/20 22:35 Source: patient Mode of arrival: ambulatory - History of Present Illness Initial comments: 59-year-old male presents emergency Department with a chief complaint of a foreign body in his hand. Patient reports he was moving wood and a sliver went into the skin of his right hand. States his attempted to remove them but she was unable to. States he can feel it. States it is about an inch long. His tetanus is up-to-date. It is tender to the touch. Denies any blood thinners. Reports full range of motion of the thumb. - Related Data Home Medications Medication Instructions Recorded Confirmed lisinopriL [Zestril] 5 mg PO QAM 11/13/19 11/20/20 sitaGLIPtin [Januvia] 100 mg PO DAILY 11/13/19 11/20/20 metFORMIN HCL [Glucophage] 500 mg PO BID 04/13/20 11/20/20 oxyCODONE-APAP 10-325MG [Percocet 1 tab PO TID PRN 05/18/20 11/20/20 10-325 mg] Fluticasone Nasal [place] [Flonase 2 spr EA NOSTRIL DAILY 10/02/20 11/20/20 Nasal [place]] Previous Rx's Medication Instructions Recorded Acetaminophen Tab [Tylenol] 650 mg PO Q6HR PRN tab 09/06/20 Pantoprazole Sodium [Protonix] 40 mg PO DAILY #30 tablet. 09/06/20 Allergies Allergy/AdvReac Type Severity Reaction Status Date / Time No Known Allergies Allergy Verified 11/27/20 22:23 Review of Systems ROS Statement: Those systems with pertinent positive or pertinent negative responses have been documented in the HPI. ROS Other: All systems not noted in ROS Statement are negative. Past Medical History Past Medical History: Diabetes Mellitus, Hearing Disorder / Deafness, Liver Disease, Musculoskeletal Disorder, Skin Disorder, Sleep Apnea/CPAP/BIPAP Additional Past Medical History / Comment(s): NIDDM type II, DDD, spinal stenosis, chronic low back pain, numbness/tingling L foot, gastritis, benign colon polyps, diverticular disease, past + stool occult blood, nephrolithiasis, ERNESTO with Cpap use, eczema, past Russo's palsey History of Any Multi-Drug Resistant Organisms: None Reported Past Surgical History: Back Surgery, Orthopedic Surgery Additional Past Surgical History / Comment(s): Posterior lumbar decompression, fusion L2-3-4, L4-L5,transforaminal lumbar interbody fusion, lithotripsy, BILAT CTR, RT 4TH TRIGGER FINGER RELEASE, 3 trigger fingers released on left hand, Colonoscopy, EGD, SPINAL INJECTIONS., PAIN CLINIC PROCEDURES, HX PANCREATITIS Past Anesthesia/Blood Transfusion Reactions: Previous Problems w/ Anesthesia Additional Past Anesthesia/Blood Transfusion Reaction / Comment(s): IV Rx very painful in arm w/ last colonoscopy 10/2019. Past Psychological History: Anxiety, Depression Smoking Status: Current every day smoker Past Alcohol Use History: None Reported Past Drug Use History: None Reported - Past Family History Father Additional Family Medical History / Comment(s): AROUND AGE 70 UNK HX Mother Family Medical History: Cancer, Osteoarthritis (OA) Additional Family Medical History / Comment(s): SKIN CANCER MOM IS 87 YEARS OLD General Exam Limitations: no limitations General appearance: alert, in no apparent distress Head exam: Present: atraumatic, normocephalic, normal inspection Eye exam: Present: normal appearance, PERRL, EOMI Pupils: Present: normal accommodation ENT exam: Present: normal exam, normal oropharynx, mucous membranes moist Neck exam: Present: normal inspection, full ROM. Absent: tenderness, lymphadenopathy Respiratory exam: Present: normal lung sounds bilaterally. Absent: respiratory distress Cardiovascular Exam: Present: regular rate, normal rhythm, normal heart sounds. Absent: systolic murmur Extremities exam: Present: full ROM, tenderness (Tenderness at the site of the foreign body), normal capillary refill. Absent: normal inspection (Foreign body noted on the palmar aspect of right hand), pedal edema Back exam: Present: normal inspection, full ROM. Absent: tenderness Neurological exam: Present: alert, oriented X3 Psychiatric exam: Present: normal affect, normal mood Skin exam: Present: warm, dry, intact, normal color Course Vital Signs 11/27/20 22:21 Temperature 98 F Pulse Rate 88 Respiratory 18 Rate Blood Pressure 130/83 O2 Sat by Pulse 98 Oximetry Procedures - Forgein Body Removal Soft Tissue Consent Obtained: verbal consent Site: hand Anesthetic Used: lidocaine 1%, with epi Amount (mLs): 2 Foreign Body Suspected: Wood Foreign Body Removed: yes Foreign Body Removal Technique: Forceps Complications: bleeding Patient Tolerated Procedure: well, no complications Medical Decision Making - Medical Decision Making 59-year-old male presents emergency Department with a chief complaint of foreign body seen. It was able to see it visually in able to palpated. Local anesthesia with lidocaine with epinephrine. I was able to remove the full piece of wood. No palpable foreign bodies afterwards. The patient will be started on Keflex. Return parameters were thoroughly discussed with patient was upsetting agreeable. Case discussed with physician. Disposition Clinical Impression: Soft tissues foreign body Disposition: HOME SELF-CARE Condition: Stable Instructions (If sedation given, give patient instructions): Soft Tissue Foreign Body (ED) Additional Instructions: Take prescribed medication as directed. Return to emergency department if symptoms worsen. Is patient prescribed a controlled substance at d/c from ED?: No Referrals: Franki Garvey MD [Primary Care Provider] - 1-2 days Time of Disposition: 23:12
[2020-11-27 23:27] VITALS: BP 132/94; PULSE 87; RESP 20
== END 2020-11-27 23:27 | disposition home or self-care (01) ==
LOC: EC 22:10
DX: S60.551A Superficial foreign body of right hand, initial encounter (principal); E11.9 Type 2 diabetes mellitus without complications; H91.90 Unspecified hearing loss, unspecified ear; Z79.899 Other long term (current) drug therapy; Z79.84 Long term (current) use of oral hypoglycemic drugs; F17.200 Nicotine dependence, unspecified, uncomplicated; W45.8XXA Other foreign body or object entering through skin, initial encounter; Y93.89 Activity, other specified
CPT/HCPCS: 10120; 99283

== ENCOUNTER → 2021-02-05 | Outpatient (CLI) | payer MEDICARE ==
--- NOTE | 2021-02-05 11:23 | US ---
EXAMINATION TYPE: US abdomen complete DATE OF EXAM: 02/05/2021 COMPARISON: CT September 03, 2020 CLINICAL HISTORY: K74.60 Cirrhosis of liver. EXAM MEASUREMENTS: Liver Length: 18.0 cm Gallbladder Wall: 0.2 cm CBD: 0.2 cm Spleen: 12.2 cm Right Kidney: 10.5 x 4.6 x 5.1 cm Left Kidney: 11.3 x 5.4 x 5.3 cm Extensive midline bowel gas. Pancreas: limited views, partial views appear wnl Liver: wnl Gallbladder: irregular wall contour, no wall thickening Evidence for sonographic Tena's sign: no CBD: wnl Spleen: wnl Right Kidney: No hydronephrosis or masses seen Left Kidney: stone measuring 0.7 x 0.5 x 0.6cm Upper IVC: wnl Abd Aorta: limited views, portions visualized wnl The visualized liver is heterogeneously hyperechoic. Evaluation for focal masses suboptimal due to t he heterogeneity. No new surrounding ascites. The intrahepatic portion of the IVC and proximal abdomi nal aorta are within normal limits. There is no evidence of shadowing mobile cholelithiasis. Gallbla dder shows lobulated peripheral margins on today's study. Common bile duct is unremarkable. The visu alized portions of the pancreas are homogenous. The spleen is unremarkable. Kidneys are symmetric a nd free of hydronephrosis. Some increased left-sided cortical echogenicity with redemonstration of 6 mm nonobstructing mid to lower pole left renal calculus. IMPRESSION: Persistent heterogeneous hyperechoic appearance liver corresponds with known hepatocellul ar disease. No new biliary dilatation or surrounding ascites.
== END | disposition home or self-care (01) ==
LOC: RADUSWWP 07:07
PROVIDERS: ATTEND Internal Medicine Gastroenterology
DX: K76.9 Liver disease, unspecified (principal)
CPT/HCPCS: 76700

== ENCOUNTER → 2021-02-18 | Outpatient (CLI) | payer MEDICARE ==
[2021-02-18 16:56] LABS: Prothrombin Time 10.9 sec (9.9-11.9)
[2021-02-18 21:58] LABS: Basophils # (A) 0.06 X 10*3/uL (0.00-0.10); Eosinophils # (A) 0.38 X 10*3/uL (0.04-0.35); Eosinophils % (A) 6.2 %; HGB 15.1 g/dL (13.0-17.0); Lymphocytes # (A) 1.19 X 10*3/uL (0.90-5.00); Lymphocytes % (A) 19.4 %; MCH 33.7 pg (27.0-32.0); MCHC 33.6 g/dL (32.0-37.0); MCV 100.4 fL (80.0-97.0); Mean Platelet Volume 12.5 fL (9.5-12.2); Monocytes # (A) 0.82 X 10*3/uL (0.20-1.00); Monocytes % (A) 13.4 %; Neutrophils # (A) 3.64 X 10*3/uL (1.80-7.70); Neutrophils % (A) 59.5 %; Platelet Count 135 X 10*3/uL (140-440); RBC 4.48 X 10*6/uL (4.40-5.60); RDW 13.8 % (11.5-14.5); WBC 6.12 X 10*3/uL (4.50-10.00)
[2021-02-19 12:03] LABS: African American GFR (CKD) 108.8 (60.0-200.0); Albumin 4.5 g/dL (3.8-4.9); Albumin/Globulin Ratio 1.71 (1.60-3.17); Anion Gap 19.3 mmol/L (4.00-12.00); BUN/Creat Ratio 13.81 Ratio (12.00-20.00); Blood Urea Nitrogen 12.4 mg/dL (9.0-27.0); Carbon Dioxide 21.7 mmol/L (21.6-31.8); Globulin 2.6 g/dL (1.6-3.3); Non-African American GFR(CKD) 93.9 (60.0-200.0); Potassium 4.7 mmol/L (3.5-5.5); Total Bilirubin 0.4 mg/dL (0.30-1.20); Total Protein 7.1 g/dL (6.2-8.2)
== END | disposition home or self-care (01) ==
LOC: LABWHC1 09:00
PROVIDERS: ATTEND Nurse Practitioner
DX: K74.60 Unspecified cirrhosis of liver (principal)
CPT/HCPCS: 36415; 80053; 82105; 85025; 85610

== ENCOUNTER 2021-04-27 16:08 | Emergency (ER) | payer OTHER, MEDICARE ==
[2021-04-27 17:22] VITALS: RESP 18
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
--- NOTE | 2021-04-27 18:13 | XR ---
EXAMINATION TYPE: XR shoulder complete LT DATE OF EXAM: 04/27/2021 COMPARISON: NONE HISTORY: Shoulder pain TECHNIQUE: 3 views FINDINGS: There is no sign of fracture nor dislocation. Glenohumeral joint is intact. IMPRESSION: Negative left shoulder exam.
[2021-04-27 18:43] VITALS: BP 149/73; PULSE 74; TEMP 98.1
== END 2021-04-27 18:40 | disposition home or self-care (01) ==
LOC: EC 16:08
DX: R51.9 Headache, unspecified (principal); M25.512 Pain in left shoulder; R20.2 Paresthesia of skin; E11.9 Type 2 diabetes mellitus without complications; F32.A Depression, unspecified; F41.9 Anxiety disorder, unspecified; F17.200 Nicotine dependence, unspecified, uncomplicated; Z79.84 Long term (current) use of oral hypoglycemic drugs; Z79.899 Other long term (current) drug therapy; V43.52XA Car driver injured in collision with other type car in traffic accident, initial encounter; Y92.410 Unspecified street and highway as the place of occurrence of the external cause
CPT/HCPCS: 70450; 72125; 99284

== ENCOUNTER 2021-06-21 12:21 | Emergency (ER) | payer MEDICARE ==
[2021-06-21 12:26] VITALS: RESP 18; TEMP 99.2
[2021-06-21] MEDS ORDERED: SODIUM CHLORIDE 0.9% 1,000 ML IV STA (12:47)
[2021-06-21] MEDS ORDERED: ALBUTEROL HFA INHALER INHALATION STA (12:47)
[2021-06-21] MEDS ORDERED: methylPREDNISolone SOD SUCCI 125 MG/2 ML VIAL IV STA ×2 (12:47→14:11)
--- NOTE | 2021-06-21 13:01 | ED ---
SOB HPI - General Chief Complaint: Shortness of Breath Stated Complaint: SOB, cough Time Seen by Provider: 06/21/21 12:38 Source: patient, RN notes reviewed Mode of arrival: ambulatory Limitations: no limitations - History of Present Illness Initial Comments: 60-year-old male with a history of bronchitis every year around this time and states he had the onset of his usual symptoms on the he was diagnosed with bronchitis he was placed on clarithromycin and cough syrup he states is getting better is getting worse he has have an old inhaler at home which has not been helping. He complains shortness of breath exertional dyspnea fevers sweats no overt chest pain however. He states he has had a lot of sinus drainage no earaches no overt sore throat at this time. No other current complaints or modifying factors MD Complaint: shortness of breath, cough - Related Data Home Medications Medication Instructions Recorded Confirmed lisinopriL [Zestril] 5 mg PO DAILY 11/13/19 06/21/21 sitaGLIPtin [Januvia] 100 mg PO DAILY 11/13/19 06/21/21 metFORMIN HCL [Glucophage] 500 mg PO BID 04/13/20 06/21/21 oxyCODONE-APAP 10-325MG [Percocet 1 tab PO Q8H PRN 05/18/20 06/21/21 10-325 mg] Albuterol Sulfate [Ventolin HFA] 2 puff INHALATION RT-Q4H PRN 06/21/21 06/21/21 Clarithromycin [Biaxin] 500 mg PO BID 06/21/21 06/21/21 Codeine Phosphate/Guaifenesin 10 ml PO Q4H PRN 06/21/21 06/21/21 [Guaiatussin AC Liquid] DULoxetine HCL [Cymbalta] 60 mg PO DAILY 06/21/21 06/21/21 Ibuprofen [Motrin Ib] 400 mg PO Q6H PRN 06/21/21 06/21/21 Sudafed Pe Sinus And Allergy 2 tab PO Q4-6H PRN 06/21/21 06/21/21 Zinc 100 mg PO DAILY 06/21/21 06/21/21 Previous Rx's Medication Instructions Recorded Pantoprazole Sodium [Protonix] 40 mg PO DAILY #30 tablet. 09/06/20 Ipratropium-Albuterol Nebulize 3 ml INHALATION Q6HR #90 ml 06/21/21 [Duoneb 0.5 mg-3 mg/3 ml Soln] Ipratropium/Albuterol Sulfate 2 puff INHALATION QID #1 each 06/21/21 [Combivent Respimat Inhaler] predniSONE [Deltasone] 20 mg PO BID #10 tab 06/21/21 Allergies Allergy/AdvReac Type Severity Reaction Status Date / Time morphine AdvReac Nausea & Verified 06/21/21 13:31 Vomiting Review of Systems ROS Statement: Those systems with pertinent positive or pertinent negative responses have been documented in the HPI. ROS Other: All systems not noted in ROS Statement are negative. Past Medical History Past Medical History: Diabetes Mellitus, Hearing Disorder / Deafness, Liver Disease, Musculoskeletal Disorder, Skin Disorder, Sleep Apnea/CPAP/BIPAP Additional Past Medical History / Comment(s): NIDDM type II, DDD, spinal stenosis, chronic low back pain, numbness/tingling L foot, gastritis, benign colon polyps, diverticular disease, past + stool occult blood, nephrolithiasis, ERNESTO with Cpap use, eczema, past Russo's palsey History of Any Multi-Drug Resistant Organisms: None Reported Past Surgical History: Back Surgery, Orthopedic Surgery Additional Past Surgical History / Comment(s): Posterior lumbar decompression, fusion L2-3-4, L4-L5,transforaminal lumbar interbody fusion, lithotripsy, BILAT CTR, RT 4TH TRIGGER FINGER RELEASE, 3 trigger fingers released on left hand, Colonoscopy, EGD, SPINAL INJECTIONS., PAIN CLINIC PROCEDURES, HX PANCREATITIS Past Anesthesia/Blood Transfusion Reactions: Previous Problems w/ Anesthesia Additional Past Anesthesia/Blood Transfusion Reaction / Comment(s): IV Rx very painful in arm w/ last colonoscopy 10/2019. Past Psychological History: Anxiety, Depression Smoking Status: Current every day smoker Past Alcohol Use History: None Reported Past Drug Use History: None Reported - Past Family History Father Additional Family Medical History / Comment(s): AROUND AGE 70 UNK HX Mother Family Medical History: Cancer, Osteoarthritis (OA) Additional Family Medical History / Comment(s): SKIN CANCER MOM IS 87 YEARS OLD General Exam - General Exam Comments Initial Comments: This is a well-developed well-nourished awake alert oriented 3 male Limitations: no limitations General appearance: alert, anxious Head exam: Present: atraumatic, normocephalic, normal inspection Eye exam: Present: normal appearance, PERRL, EOMI. Absent: scleral icterus, conjunctival injection, periorbital swelling ENT exam: Present: mucous membranes dry Neck exam: Present: normal inspection, full ROM, other (No stridor JVD or bruits). Absent: tenderness, meningismus, lymphadenopathy Respiratory exam: Present: normal lung sounds bilaterally, decreased breath sounds. Absent: respiratory distress, wheezes, rales, rhonchi, stridor Cardiovascular Exam: Present: regular rate, normal rhythm, normal heart sounds. Absent: systolic murmur, diastolic murmur, rubs, gallop, clicks GI/Abdominal exam: Present: soft, normal bowel sounds. Absent: distended, tenderness, guarding, rebound, rigid Extremities exam: Present: normal inspection, full ROM, normal capillary refill. Absent: tenderness, pedal edema, joint swelling, calf tenderness Back exam: Present: normal inspection Neurological exam: Present: alert, oriented X3, CN II-XII intact Psychiatric exam: Present: normal affect, normal mood Skin exam: Present: warm, dry, intact, normal color. Absent: rash Course Vital Signs 06/21/21 06/21/21 06/21/21 12:22 17:06 17:14 Temperature 99.2 F Pulse Rate 103 H 80 86 Respiratory 18 Rate Blood Pressure 173/95 O2 Sat by Pulse 96 Oximetry - Reevaluation(s) Reevaluation #1: 06/21/21 17:44 The patient is feeling much improved after the nebulizer treatment he will be discharged after IV antibiotics. He also has a home nebulizer he will get materials for this Medical Decision Making - Medical Decision Making The patient did feel much improved after the treatment was rendered he will be discharged with medications for at home. He will get a DuoNeb prescription he does have a nebulizer at home. Additionally he will get a Combivent. Also oral steroids. - Lab Data Result diagrams: 06/21/21 13:36 06/21/21 13:36 Lab Results 06/21/21 06/21/21 06/21/21 Range/Units 13:13 13:36 13:36 WBC 10.1 (3.8-10.6) k/uL RBC 4.37 (4.30-5.90) m/uL Hgb 15.0 (13.0-17.5) gm/dL Hct 43.4 (39.0-53.0) % MCV 99.3 (80.0-100.0) fL MCH 34.3 (25.0-35.0) pg MCHC 34.5 (31.0-37.0) g/dL RDW 13.4 (11.5-15.5) % Plt Count 142 L (150-450) k/uL MPV 8.6 Neutrophils % 80 % Lymphocytes % 9 % Monocytes % 7 % Eosinophils % 2 % Basophils % 0 % Neutrophils # 8.0 H (1.3-7.7) k/uL Lymphocytes # 0.9 L (1.0-4.8) k/uL Monocytes # 0.7 (0-1.0) k/uL Eosinophils # 0.2 (0-0.7) k/uL Basophils # 0.1 (0-0.2) k/uL PT 10.9 (9.0-12.0) sec INR 1.0 (<1.2) APTT 24.5 (22.0-30.0) sec D-Dimer 0.89 H (<0.60) mg/L FEU Sodium (137-145) mmol/L Potassium (3.5-5.1) mmol/L Chloride (98-107) mmol/L Carbon Dioxide (22-30) mmol/L Anion Gap mmol/L BUN (9-20) mg/dL Creatinine (0.66-1.25) mg/dL Est GFR (CKD-EPI)AfAm (>60 ml/min/1.73 sqM) Est GFR (CKD-EPI)NonAf (>60 ml/min/1.73 sqM) Glucose (74-99) mg/dL Plasma Lactic Acid Jeremie (0.7-2.0) mmol/L Calcium (8.4-10.2) mg/dL Magnesium (1.6-2.3) mg/dL Total Bilirubin (0.2-1.3) mg/dL AST (17-59) U/L ALT (4-49) U/L Alkaline Phosphatase (38-126) U/L Troponin I (0.000-0.034) ng/mL NT-Pro-B Natriuret Pep pg/mL Total Protein (6.3-8.2) g/dL Albumin (3.5-5.0) g/dL Coronavirus (PCR) (Not Detectd) Influenza Type A RNA Not Detected (Not Detectd) Influenza Type B (PCR) Not Detected (Not Detectd) 06/21/21 06/21/21 06/21/21 Range/Units 13:36 13:36 13:36 WBC (3.8-10.6) k/uL RBC (4.30-5.90) m/uL Hgb (13.0-17.5) gm/dL Hct (39.0-53.0) % MCV (80.0-100.0) fL MCH (25.0-35.0) pg MCHC (31.0-37.0) g/dL RDW (11.5-15.5) % Plt Count (150-450) k/uL MPV Neutrophils % % Lymphocytes % % Monocytes % % Eosinophils % % Basophils % % Neutrophils # (1.3-7.7) k/uL Lymphocytes # (1.0-4.8) k/uL Monocytes # (0-1.0) k/uL Eosinophils # (0-0.7) k/uL Basophils # (0-0.2) k/uL PT (9.0-12.0) sec INR (<1.2) APTT (22.0-30.0) sec D-Dimer (<0.60) mg/L FEU Sodium 134 L (137-145) mmol/L Potassium 4.5 (3.5-5.1) mmol/L Chloride 103 (98-107) mmol/L Carbon Dioxide 22 (22-30) mmol/L Anion Gap 9 mmol/L BUN 14 (9-20) mg/dL Creatinine 0.65 L (0.66-1.25) mg/dL Est GFR (CKD-EPI)AfAm >90 (>60 ml/min/1.73 sqM) Est GFR (CKD-EPI)NonAf >90 (>60 ml/min/1.73 sqM) Glucose 260 H (74-99) mg/dL Plasma Lactic Acid Jeremie 1.7 (0.7-2.0) mmol/L Calcium 8.8 (8.4-10.2) mg/dL Magnesium 1.9 (1.6-2.3) mg/dL Total Bilirubin 1.2 (0.2-1.3) mg/dL AST 40 (17-59) U/L ALT 36 (4-49) U/L Alkaline Phosphatase 84 (38-126) U/L Troponin I <0.012 (0.000-0.034) ng/mL NT-Pro-B Natriuret Pep pg/mL Total Protein 7.2 (6.3-8.2) g/dL Albumin 3.9 (3.5-5.0) g/dL Coronavirus (PCR) (Not Detectd) Influenza Type A RNA (Not Detectd) Influenza Type B (PCR) (Not Detectd) 06/21/21 06/21/21 Range/Units 13:36 13:38 WBC (3.8-10.6) k/uL RBC (4.30-5.90) m/uL Hgb (13.0-17.5) gm/dL Hct (39.0-53.0) % MCV (80.0-100.0) fL MCH (25.0-35.0) pg MCHC (31.0-37.0) g/dL RDW (11.5-15.5) % Plt Count (150-450) k/uL MPV Neutrophils % % Lymphocytes % % Monocytes % % Eosinophils % % Basophils % % Neutrophils # (1.3-7.7) k/uL Lymphocytes # (1.0-4.8) k/uL Monocytes # (0-1.0) k/uL Eosinophils # (0-0.7) k/uL Basophils # (0-0.2) k/uL PT (9.0-12.0) sec INR (<1.2) APTT (22.0-30.0) sec D-Dimer (<0.60) mg/L FEU Sodium (137-145) mmol/L Potassium (3.5-5.1) mmol/L Chloride (98-107) mmol/L Carbon Dioxide (22-30) mmol/L Anion Gap mmol/L BUN (9-20) mg/dL Creatinine (0.66-1.25) mg/dL Est GFR (CKD-EPI)AfAm (>60 ml/min/1.73 sqM) Est GFR (CKD-EPI)NonAf (>60 ml/min/1.73 sqM) Glucose (74-99) mg/dL Plasma Lactic Acid Jeremie (0.7-2.0) mmol/L Calcium (8.4-10.2) mg/dL Magnesium (1.6-2.3) mg/dL Total Bilirubin (0.2-1.3) mg/dL AST (17-59) U/L ALT (4-49) U/L Alkaline Phosphatase (38-126) U/L Troponin I (0.000-0.034) ng/mL NT-Pro-B Natriuret Pep <11 pg/mL Total Protein (6.3-8.2) g/dL Albumin (3.5-5.0) g/dL Coronavirus (PCR) Not Detected (Not Detectd) Influenza Type A RNA (Not Detectd) Influenza Type B (PCR) (Not Detectd) - EKG Data -: EKG Interpreted by Me EKG shows normal: sinus rhythm EKG Comments: Sinus rhythm rate 84. 169 QRS 114 QT since QTC 355/395 moderate interventricular conduction delay Disposition Clinical Impression: Acute bronchospasm, Bronchitis, Febrile illness Disposition: HOME SELF-CARE Condition: Good Instructions (If sedation given, give patient instructions): Bronchospasm (ED), Acute Bronchitis (ED), Fever in Adults (ED) Additional Instructions: Continue with current antibiotics Prescriptions: Ipratropium/Albuterol Sulfate [Combivent Respimat Inhaler] 2 puff INHALATION QID #1 each predniSONE [Deltasone] 20 mg PO BID #10 tab Ipratropium-Albuterol Nebulize [Duoneb 0.5 mg-3 mg/3 ml Soln] 3 ml INHALATION Q6HR #90 ml Is patient prescribed a controlled substance at d/c from ED?: No Referrals: Franki Garvey MD [Primary Care Provider] - 1-2 days
--- NOTE | 2021-06-21 13:54 | XR ---
EXAMINATION TYPE: XR chest 2V DATE OF EXAM: 06/21/2021 COMPARISON: Chest x-ray 10/15/2018 HISTORY: Difficulty breathing, cough TECHNIQUE: Frontal and lateral views of the chest are obtained. FINDINGS: There is no focal air space opacity, pleural effusion, or pneumothorax seen. The cardiac silhouette size is within normal limits. Bronchial wall thickening is present. The osseous structur es are intact. IMPRESSION: Correlate for bronchitis, there may be some minimal nasal atelectasis, follow-up as [place] [facility]
[2021-06-21 13:56] LABS: Basophils # (A) 0.1 k/uL (0-0.2); Basophils % (A) 0 %; Eosinophils # (A) 0.2 k/uL (0-0.7); Eosinophils % (A) 2 %; HCT 43.4 % (39.0-53.0); Lymphocytes # (A) 0.9 k/uL (1.0-4.8); Lymphocytes % (A) 9 %; MCH 34.3 pg (25.0-35.0); MCHC 34.5 g/dL (31.0-37.0); MCV 99.3 fL (80.0-100.0); Mean Platelet Volume 8.6; Monocytes # (A) 0.7 k/uL (0-1.0); Monocytes % (A) 7 %; Neutrophils % (A) 80 %; Platelet Count 142 k/uL (150-450); RBC 4.37 m/uL (4.30-5.90); RDW 13.4 % (11.5-15.5); WBC 10.1 k/uL (3.8-10.6)
[2021-06-21 14:02] LABS: ALT 36 U/L (4-49); AST 40 U/L (17-59); African American GFR (CKD) >90 (>60 ml/min/1.73 sqM); Albumin 3.9 g/dL (3.5-5.0); Alkaline Phosphatase 84 U/L (38-126); Anion Gap 9 mmol/L; Blood Urea Nitrogen 14 mg/dL (9-20); Calcium 8.8 mg/dL (8.4-10.2); Carbon Dioxide 22 mmol/L (22-30); Chloride 103 mmol/L (98-107); Glucose 260 mg/dL (74-99); Magnesium 1.9 mg/dL (1.6-2.3); Non-African American GFR(CKD) >90 (>60 ml/min/1.73 sqM); Potassium 4.5 mmol/L (3.5-5.1); Sodium 134 mmol/L (137-145); Total Bilirubin 1.2 mg/dL (0.2-1.3); Total Protein 7.2 g/dL (6.3-8.2)
[2021-06-21 14:06] LABS: Partial Thromboplastin Time 24.5 sec (22.0-30.0); Prothrombin Time 10.9 sec (9.0-12.0)
--- NOTE | 2021-06-21 16:22 | CT ---
EXAMINATION TYPE: CT angio chest DATE OF EXAM: 06/21/2021 COMPARISON: No previous CT scan of the chest is available for comparison HISTORY: Shortness of breath. CT DLP: 508.6 mGy.cm. Automated Exposure Control for Dose Reduction was Utilized. TECHNIQUE AND CONTRAST: CTA scan of the thorax is performed with IV Contrast, patient injected with 100 mL of Isovue 370, pul [facility] angiogram protocol. MIP Images are created on CT scanner and reviewed. FINDINGS: Artifactual images. No definite filling defect within the pulmonary trunk, main pulmonary arteries, l obar and segmental branches to suggest pulmonary embolism. Subsegmental branches are suboptimally ass essed. The pulmonary trunk measures 2.7 cm. No gross cardiomegaly. Coronary arterial calcifications. 10 mm subcarinal lymph node. Other scattered smaller bilateral hilar lymph nodes measuring up to 9 mm in the right hilum and 8mm in the left hilum. Diffuse bronchial thickening mainly in the lower lobes with areas of bronchial impaction at the poste rior aspect of the left lower lobe. Bilateral basal subsegmental pulmonary atelectasis, thicker on th e left side. 4 mm nodule at the anterior aspect of the middle lobe (image #[id number], series 406), for optio nal follow-up CT scan in 12 months if high risk patient. Unremarkable remainder of the lungs. No pleural or pericardial effusion. The most posterior aspect of the lung bases are not included in t he scan. Evident cirrhotic hepatic changes, please correlate with liver function tests and hepatic vi ral serology. Bulky spleen. Degenerative changes of the lower thoracic spine. T10 limbus vertebra rat her than sequela of chronic fracture. IMPRESSION: No major or central pulmonary embolism. Left lower lobe bronchial impaction with diffuse lower lobe b ronchial wall thickening and bilateral subsegmental pulmonary atelectasis more on the left side as de scribed above. Other incidental findings as described above.
[2021-06-21] MEDS ORDERED: IPRATROPIUM-ALBUTEROL 3 ML NEB INHALATION STA (16:52)
[2021-06-21] MEDS ORDERED: cefTRIAXone IN SWFI 1,000 MG/10 ML SYRINGE IVP STA (16:53)
[2021-06-21 18:27] VITALS: BP 122/72; PULSE 84
== END 2021-06-21 18:27 | disposition home or self-care (01) ==
LOC: EC 12:21
DX: J40 Bronchitis, not specified as acute or chronic (principal); F17.200 Nicotine dependence, unspecified, uncomplicated; E11.9 Type 2 diabetes mellitus without complications; Z88.5 Allergy status to narcotic agent; Z79.84 Long term (current) use of oral hypoglycemic drugs; Z79.4 Long term (current) use of insulin; Z20.822 Contact with and (suspected) exposure to COVID-19
CPT/HCPCS: 36415; 94640 ×2; 93005; 85379; 83880; 80053; 83605; 83735; 84484; 85025; 85610; 85730; 87040; 87502; 87635; 71046; 71275; 99285; 96374; 96375; 96361; J2930; J0696; Q9967

== ENCOUNTER → 2021-08-23 | Outpatient (CLI) | payer MEDICARE ==
--- NOTE | 2021-08-23 09:36 | US ---
EXAMINATION TYPE: US abdomen limited DATE OF EXAM: 08/23/2021 COMPARISON: Multiple Ultrasounds, latest = 02/05/21, CT = 04/13/20 CLINICAL HISTORY: K74.60 Unspecific cirrhosis. EXAM MEASUREMENTS: Liver Length: 19.2 cm Gallbladder Wall: 0.2 cm CBD: 0.4 cm Right Kidney: 11.3 x 5.6 x 4.4 cm Pancreas: Obscured by bowel gas Liver: irregular echogenicity Gallbladder: No stones seen, ? tiny amount of free fluid anterior to GB, ? air shadowing at fundus Evidence for sonographic Tena's sign: No CBD: wnl Right Kidney: No hydronephrosis or masses seen IMPRESSION: Hepatic steatosis suggested.
[2021-08-23 14:24] LABS: Basophils # (A) 0.04 X 10*3/uL (0.00-0.10); Basophils % (A) 0.7 %; Eosinophils # (A) 0.27 X 10*3/uL (0.04-0.35); Eosinophils % (A) 4.9 %; HCT 42.2 % (39.6-50.0); HGB 14.1 g/dL (13.0-17.0); Immature Grans, Automated 0.4 %; Lymphocytes % (A) 21.7 %; MCH 32.3 pg (27.0-32.0); MCHC 33.4 g/dL (32.0-37.0); MCV 96.6 fL (80.0-97.0); Mean Platelet Volume 11.3 fL (9.5-12.2); Monocytes # (A) 0.54 X 10*3/uL (0.20-1.00); Monocytes % (A) 9.8 %; NRBC Per 100 WBC 0 /100 WBCS (0.0-0.0); Neutrophils # (A) 3.46 X 10*3/uL (1.80-7.70); Neutrophils % (A) 62.5 %; Platelet Count 160 X 10*3/uL (140-440); RBC 4.37 X 10*6/uL (4.40-5.60); RDW 12.8 % (11.5-14.5); WBC 5.53 X 10*3/uL (4.50-10.00)
[2021-08-23 15:29] LABS: African American GFR (CKD) 118.5 (60.0-200.0); Albumin 4.4 g/dL (3.8-4.9); Albumin/Globulin Ratio 1.62 (1.60-3.17); Anion Gap 10.4 mmol/L (10.00-18.00); BUN/Creat Ratio 12.21 Ratio (12.00-20.00); Blood Urea Nitrogen 8.9 mg/dL (9.0-27.0); Calcium 9.7 mg/dL (8.7-10.3); Carbon Dioxide 25.6 mmol/L (20.0-27.5); Globulin 2.7 g/dL (1.6-3.3); Non-African American GFR(CKD) 102.3 (60.0-200.0); Potassium 4.2 mmol/L (3.5-5.5); Total Bilirubin 0.4 mg/dL (0.30-1.20); Total Protein 7.1 g/dL (6.2-8.2)
== END | disposition home or self-care (01) ==
LOC: RADUSWWP 08:26
PROVIDERS: ATTEND Internal Medicine Gastroenterology
DX: K74.60 Unspecified cirrhosis of liver (principal)
CPT/HCPCS: 76705; 80053; 82105; 85025

== ENCOUNTER 2022-01-21 08:57 | Emergency (ER) | payer MEDICARE ==
[2022-01-21 09:03] VITALS: TEMP 98
--- NOTE | 2022-01-21 09:26 | ED ---
General Adult HPI - General Chief complaint: Neuro Symptoms/Deficit Stated complaint: russo's palsy symptoms Time Seen by Provider: 01/21/22 09:06 Source: patient, RN notes reviewed, old records reviewed Mode of arrival: ambulatory Limitations: no limitations - History of Present Illness Initial comments: 61-year-old male presenting for evaluation of left-sided facial droop and pain in front of his left ear. He noticed droop yesterday morning when he woke up. He is presenting at approximately 9 AM this is over 24 hours from the onset. He has a remote history of Russo's palsy. Denies any limb weakness or numbness. No fever. No speech abnormalities. - Related Data Home Medications Medication Instructions Recorded Confirmed lisinopriL [Zestril] 5 mg PO DAILY 11/13/19 06/21/21 sitaGLIPtin [Januvia] 100 mg PO DAILY 11/13/19 06/21/21 metFORMIN HCL [Glucophage] 500 mg PO BID 04/13/20 06/21/21 oxyCODONE-APAP 10-325MG [Percocet 1 tab PO Q8H PRN 05/18/20 06/21/21 10-325 mg] Albuterol Sulfate [Ventolin HFA] 2 puff INHALATION RT-Q4H PRN 06/21/21 06/21/21 Clarithromycin [Biaxin] 500 mg PO BID 06/21/21 06/21/21 Codeine Phosphate/Guaifenesin 10 ml PO Q4H PRN 06/21/21 06/21/21 [Guaiatussin AC Liquid] DULoxetine HCL [Cymbalta] 60 mg PO DAILY 06/21/21 06/21/21 Ibuprofen [Motrin Ib] 400 mg PO Q6H PRN 06/21/21 06/21/21 Sudafed Pe Sinus And Allergy 2 tab PO Q4-6H PRN 06/21/21 06/21/21 Zinc 100 mg PO DAILY 06/21/21 06/21/21 Previous Rx's Medication Instructions Recorded Pantoprazole Sodium [Protonix] 40 mg PO DAILY #30 tablet. 09/06/20 Ipratropium-Albuterol Nebulize 3 ml INHALATION Q6HR #90 ml 06/21/21 [Duoneb 0.5 mg-3 mg/3 ml Soln] Ipratropium/Albuterol Sulfate 2 puff INHALATION QID #1 each 06/21/21 [Combivent Respimat Inhaler] predniSONE [Deltasone] 20 mg PO BID #10 tab 06/21/21 predniSONE [Deltasone] 60 mg PO DAILY 7 Days #21 tab 01/21/22 valACYclovir HCL [Valacyclovir] 1,000 mg PO TID 7 Days #21 tab 01/21/22 Allergies Allergy/AdvReac Type Severity Reaction Status Date / Time morphine AdvReac Nausea & Verified 01/21/22 09:03 Vomiting Review of Systems ROS Statement: Those systems with pertinent positive or pertinent negative responses have been documented in the HPI. ROS Other: All systems not noted in ROS Statement are negative. Past Medical History Past Medical History: Diabetes Mellitus, Hearing Disorder / Deafness, Liver Disease, Musculoskeletal Disorder, Skin Disorder, Sleep Apnea/CPAP/BIPAP Additional Past Medical History / Comment(s): NIDDM type II, DDD, spinal stenosis, chronic low back pain, numbness/tingling L foot, gastritis, benign colon polyps, diverticular disease, past + stool occult blood, nephrolithiasis, ERNESTO with Cpap use, eczema, past Russo's palsey History of Any Multi-Drug Resistant Organisms: None Reported Past Surgical History: Back Surgery, Orthopedic Surgery Additional Past Surgical History / Comment(s): Posterior lumbar decompression, fusion L2-3-4, L4-L5,transforaminal lumbar interbody fusion, lithotripsy, BILAT CTR, RT 4TH TRIGGER FINGER RELEASE, 3 trigger fingers released on left hand, Colonoscopy, EGD, SPINAL INJECTIONS., PAIN CLINIC PROCEDURES, HX PANCREATITIS Past Anesthesia/Blood Transfusion Reactions: Previous Problems w/ Anesthesia Additional Past Anesthesia/Blood Transfusion Reaction / Comment(s): IV Rx very painful in arm w/ last colonoscopy 10/2019. Past Psychological History: Anxiety, Depression Smoking Status: Current every day smoker Past Alcohol Use History: None Reported Past Drug Use History: None Reported - Past Family History Father Additional Family Medical History / Comment(s): AROUND AGE 70 UNK HX Mother Family Medical History: Cancer, Osteoarthritis (OA) Additional Family Medical History / Comment(s): SKIN CANCER MOM IS 87 YEARS OLD General Exam Limitations: no limitations General appearance: alert, in no apparent distress Head exam: Present: atraumatic, normocephalic Eye exam: Present: normal appearance, PERRL ENT exam: Present: normal exam Neck exam: Present: normal inspection. Absent: tenderness, meningismus Respiratory exam: Present: normal lung sounds bilaterally. Absent: respiratory distress, wheezes Cardiovascular Exam: Present: regular rate, normal rhythm GI/Abdominal exam: Present: soft. Absent: distended, tenderness, guarding Extremities exam: Present: normal inspection, normal capillary refill Neurological exam: Present: alert, motor sensory deficit (Patient has a left facial droop with forehead involvement, no other focal findings) Psychiatric exam: Present: normal affect, normal mood Skin exam: Present: warm, dry, intact Course Vital Signs 01/21/22 01/21/22 09:01 09:36 Temperature 98 F Pulse Rate 89 78 Respiratory 20 18 Rate Blood Pressure 123/77 131/81 O2 Sat by Pulse 97 94 L Oximetry EKG Findings - EKG Comments: EKG Findings:: EKG: Sinus rhythm rate of 69, FL interval 173, QRS duration 113, QTC [address] segment elevation. Medical Decision Making - Medical Decision Making 61-year-old male who presents for evaluation of left-sided facial droop. This doesn't involve the forehead with and the patient has difficulty closing his left eye. This does very much appear like a Russo's palsy and is approximately 28 hours old. Patient did receive a stroke workup including EKG, CT brain, laboratory testing. This is unremarkable. Patient is eager for discharge. He is given very strict return parameters including any speech abnormalities, any limb weakness. He'll be prescribed valacyclovir and prednisone. Given neurology follow-up. He is instructed to tape his eye shut and apply ocular lubricant. - Lab Data Result diagrams: 01/21/22 09:35 01/21/22 09:35 Lab Results 01/21/22 01/21/22 01/21/22 Range/Units 09:35 09:35 09:35 WBC 6.5 (3.8-10.6) k/uL RBC 4.59 (4.30-5.90) m/uL Hgb 14.9 (13.0-17.5) gm/dL Hct 42.7 (39.0-53.0) % MCV 92.9 (80.0-100.0) fL MCH 32.4 (25.0-35.0) pg MCHC 34.9 (31.0-37.0) g/dL RDW 12.8 (11.5-15.5) % Plt Count 171 (150-450) k/uL MPV 8.8 Neutrophils % 64 % Lymphocytes % 21 % Monocytes % 6 % Eosinophils % 5 % Basophils % 1 % Neutrophils # 4.2 (1.3-7.7) k/uL Lymphocytes # 1.4 (1.0-4.8) k/uL Monocytes # 0.4 (0-1.0) k/uL Eosinophils # 0.3 (0-0.7) k/uL Basophils # 0.1 (0-0.2) k/uL PT 11.0 (9.0-12.0) sec INR 1.0 (<1.2) APTT 25.2 (22.0-30.0) sec Sodium 138 (137-145) mmol/L Potassium 4.1 (3.5-5.1) mmol/L Chloride 102 (98-107) mmol/L Carbon Dioxide 23 (22-30) mmol/L Anion Gap 13 mmol/L BUN 13 (9-20) mg/dL Creatinine 0.74 (0.66-1.25) mg/dL Est GFR (CKD-EPI)AfAm >90 (>60 ml/min/1.73 sqM) Est GFR (CKD-EPI)NonAf >90 (>60 ml/min/1.73 sqM) Glucose 145 H (74-99) mg/dL Calcium 9.2 (8.4-10.2) mg/dL Total Bilirubin 0.8 (0.2-1.3) mg/dL AST 36 (17-59) U/L ALT 28 (4-49) U/L Alkaline Phosphatase 89 (38-126) U/L Troponin I (0.000-0.034) ng/mL Total Protein 7.3 (6.3-8.2) g/dL Albumin 4.6 (3.5-5.0) g/dL 01/21/22 Range/Units 09:35 WBC (3.8-10.6) k/uL RBC (4.30-5.90) m/uL Hgb (13.0-17.5) gm/dL Hct (39.0-53.0) % MCV (80.0-100.0) fL MCH (25.0-35.0) pg MCHC (31.0-37.0) g/dL RDW (11.5-15.5) % Plt Count (150-450) k/uL MPV Neutrophils % % Lymphocytes % % Monocytes % % Eosinophils % % Basophils % % Neutrophils # (1.3-7.7) k/uL Lymphocytes # (1.0-4.8) k/uL Monocytes # (0-1.0) k/uL Eosinophils # (0-0.7) k/uL Basophils # (0-0.2) k/uL PT (9.0-12.0) sec INR (<1.2) APTT (22.0-30.0) sec Sodium (137-145) mmol/L Potassium (3.5-5.1) mmol/L Chloride (98-107) mmol/L Carbon Dioxide (22-30) mmol/L Anion Gap mmol/L BUN (9-20) mg/dL Creatinine (0.66-1.25) mg/dL Est GFR (CKD-EPI)AfAm (>60 ml/min/1.73 sqM) Est GFR (CKD-EPI)NonAf (>60 ml/min/1.73 sqM) Glucose (74-99) mg/dL Calcium (8.4-10.2) mg/dL Total Bilirubin (0.2-1.3) mg/dL AST (17-59) U/L ALT (4-49) U/L Alkaline Phosphatase (38-126) U/L Troponin I <0.012 (0.000-0.034) ng/mL Total Protein (6.3-8.2) g/dL Albumin (3.5-5.0) g/dL Disposition Clinical Impression: Russo's palsy Disposition: HOME SELF-CARE Condition: Good Instructions (If sedation given, give patient instructions): Russo Palsy (ED) Prescriptions: predniSONE [Deltasone] 60 mg PO DAILY 7 Days #21 tab valACYclovir HCL [Valacyclovir] 1,000 mg PO TID 7 Days #21 tab Is patient prescribed a controlled substance at d/c from ED?: No Referrals: Franki Garvey MD [Primary Care Provider] - 1-2 days Arleen Chavez MD [REFERRING] - 1-2 days Time of Disposition: 11:34
[2022-01-21 09:42] LABS: Basophils # (A) 0.1 k/uL (0-0.2); Basophils % (A) 1 %; Eosinophils # (A) 0.3 k/uL (0-0.7); Eosinophils % (A) 5 %; HCT 42.7 % (39.0-53.0); HGB 14.9 gm/dL (13.0-17.5); Lymphocytes # (A) 1.4 k/uL (1.0-4.8); Lymphocytes % (A) 21 %; MCH 32.4 pg (25.0-35.0); MCHC 34.9 g/dL (31.0-37.0); MCV 92.9 fL (80.0-100.0); Mean Platelet Volume 8.8; Monocytes # (A) 0.4 k/uL (0-1.0); Monocytes % (A) 6 %; Neutrophils # (A) 4.2 k/uL (1.3-7.7); Neutrophils % (A) 64 %; Platelet Count 171 k/uL (150-450); RBC 4.59 m/uL (4.30-5.90); RDW 12.8 % (11.5-15.5); WBC 6.5 k/uL (3.8-10.6)
[2022-01-21 09:53] LABS: ALT 28 U/L (4-49); AST 36 U/L (17-59); African American GFR (CKD) >90 (>60 ml/min/1.73 sqM); Albumin 4.6 g/dL (3.5-5.0); Alkaline Phosphatase 89 U/L (38-126); Anion Gap 13 mmol/L; Blood Urea Nitrogen 13 mg/dL (9-20); Calcium 9.2 mg/dL (8.4-10.2); Carbon Dioxide 23 mmol/L (22-30); Chloride 102 mmol/L (98-107); Glucose 145 mg/dL (74-99); Non-African American GFR(CKD) >90 (>60 ml/min/1.73 sqM); Partial Thromboplastin Time 25.2 sec (22.0-30.0); Potassium 4.1 mmol/L (3.5-5.1); Sodium 138 mmol/L (137-145); Total Bilirubin 0.8 mg/dL (0.2-1.3); Total Protein 7.3 g/dL (6.3-8.2)
[2022-01-21] MEDS ORDERED: ACETAMINOPHEN TAB 500 MG TAB PO STA (09:57)
--- NOTE | 2022-01-21 10:25 | CT ---
EXAMINATION TYPE: CT brain wo con DATE OF EXAM: 01/21/2022 HISTORY: Neuro deficits, [place] Palsy CT DLP: 1119.4 mGycm. Automated Exposure Control for Dose Reduction was Utilized. TECHNIQUE: CT scan of the head is performed without contrast. COMPARISON: CT brain 04/27/2021. FINDINGS: There is no acute intracranial hemorrhage or midline shift identified. There is mild diff use ventricular and sulcal prominence consistent with mild diffuse age-related cerebral atrophy. Contreras -white matter differentiation fairly well maintained.. The globes are intact and the visualized sinu ses are clear. IMPRESSION: No acute intracranial hemorrhage or midline shift. No significant change from prior.
[2022-01-21] MEDS ORDERED: valACYclovir HCL 1,000 MG TABLET PO STA (10:50)
[2022-01-21] MEDS ORDERED: KETOROLAC 15 MG/ML 1 ML VIAL IVP STA (11:38)
[2022-01-21] MEDS ORDERED: predniSONE 20 MG TAB PO STA (11:38)
[2022-01-21 11:55] VITALS: BP 127/80; PULSE 68; RESP 16
== END 2022-01-21 11:55 | disposition home or self-care (01) ==
LOC: EC 08:57
DX: G51.0 Bell's palsy (principal); E11.9 Type 2 diabetes mellitus without complications; F17.200 Nicotine dependence, unspecified, uncomplicated; Z79.84 Long term (current) use of oral hypoglycemic drugs; Z88.6 Allergy status to analgesic agent
CPT/HCPCS: 36415; 93005; 80053; 84484; 85025; 85610; 85730; 70450; 99284; 96374; J1885; J7512

== ENCOUNTER → 2022-01-24 | Outpatient (CLI) | payer MEDICARE ==
--- NOTE | 2022-01-24 07:58 | US ---
EXAMINATION TYPE: US abdomen limited DATE OF EXAM: 01/24/2022 COMPARISON: NONE CLINICAL HISTORY: K74.60 UNSPECIFIED CIRRHOSIS OF LIVER. TECHNIQUE: Multiple sonographic images of the right upper quadrant are obtained. FINDINGS: EXAM MEASUREMENTS: Liver Length: 18.2 cm Gallbladder Wall: 0.1 cm CBD: 0.5 cm Right Kidney: 10.4 x 3.7 x 4.9 cm M[employer] GUIDE NOTES: Pancreas: Obscured by bowel gas Liver: measures large with increased echotexture. Mild nodularity to the liver contour. No suspiciou s masses are identified. Gallbladder: wnl Evidence for sonographic Tena's sign: no CBD: wnl Right Kidney: wnl IMPRESSION: Hepatocellular disease with mild nodularity liver which can be seen in setting of cirrhosis. No suspi cious masses.
[2022-01-24 10:19] LABS: African American GFR (CKD) 113.3 (60.0-200.0); Albumin 4.6 g/dL (3.8-4.9); Albumin/Globulin Ratio 1.59 (1.60-3.17); BUN/Creat Ratio 21.25 Ratio (12.00-20.00); Calcium 9.6 mg/dL (8.7-10.3); Globulin 2.9 g/dL (1.6-3.3); Non-African American GFR(CKD) 97.8 (60.0-200.0); Potassium 4.4 mmol/L (3.5-5.5); Total Bilirubin 0.5 mg/dL (0.30-1.20); Total Protein 7.5 g/dL (6.2-8.2)
[2022-01-24 15:56] LABS: Basophils # (A) 0.06 X 10*3/uL (0.00-0.10); Basophils % (A) 0.8 %; Eosinophils % (A) 1.3 %; HCT 43.3 % (39.6-50.0); HGB 14.6 g/dL (13.0-17.0); Immature Grans, Automated 0.6 %; Lymphocytes # (A) 2.29 X 10*3/uL (0.90-5.00); Lymphocytes % (A) 28.8 %; MCH 33.3 pg (27.0-32.0); MCHC 33.7 g/dL (32.0-37.0); MCV 98.6 fL (80.0-97.0); Mean Platelet Volume 11.5 fL (9.5-12.2); Monocytes # (A) 0.54 X 10*3/uL (0.20-1.00); Monocytes % (A) 6.8 %; NRBC Per 100 WBC 0 /100 WBCS (0.0-0.0); Neutrophils % (A) 61.7 %; Platelet Count 151 X 10*3/uL (140-440); RBC 4.39 X 10*6/uL (4.40-5.60); RDW 13.2 % (11.5-14.5); WBC 7.94 X 10*3/uL (4.50-10.00)
== END | disposition home or self-care (01) ==
LOC: RADUSWWP 07:20
PROVIDERS: ATTEND Internal Medicine Gastroenterology
DX: K74.60 Unspecified cirrhosis of liver (principal)
CPT/HCPCS: 76705; 80053; 82105; 85025

== ENCOUNTER → 2022-03-23 | Outpatient (CLI) | payer MEDICARE ==
[2022-03-24 11:58] LABS: Lyme IgG/IgM 0.28 Index
== END | disposition home or self-care (01) ==
LOC: LABWHC1 15:39
PROVIDERS: ATTEND Psychiatry & Neurology Neurology
DX: G51.0 Bell's palsy (principal)
CPT/HCPCS: 36415; 86618

== ENCOUNTER 2022-07-26 10:01 | Observation (INO) | payer MEDICARE ==
[2022-07-26] MEDS ORDERED: SODIUM CHLORIDE 0.9% 2,000 ML IV STA (10:25)
[2022-07-26] MEDS ORDERED: KETOROLAC 15 MG/ML 1 ML VIAL IVP STA (10:25)
[2022-07-26] MEDS ORDERED: HYDROmorphone 1 MG/ML 1 ML SYRINGE IVP STA ×2 (10:26→12:55)
--- NOTE | 2022-07-26 10:27 | ED ---
General Adult HPI - General Chief complaint: Abdominal Pain Stated complaint: poss kidney stone Time Seen by Provider: 07/26/22 10:19 Source: patient, RN notes reviewed Mode of arrival: ambulatory Limitations: no limitations - History of Present Illness Initial comments: Patient is a 61-year-old male presenting to the emergency room with complaints of severe right flank pain. He reports that he has been having mild right flank pain for approximately 1 week with episodes of hematuria over the last 5 days that has been intermittent. He denies any hematuria today but does report increased difficulty in urinating specifically starting a stream. He reports that he was advised by his urologist to prevent sent to the emergency room for further evaluation and treatment. He has previously seen urology for kidney stones in the past and has required lithotripsy and cystoscopies. He denies the complete inability to urinate. He denies any chest pain, shortness of breath, abdominal pain not directly related to flank pain radiation, nausea, vomiting, fevers or chills. In addition to his previous kidney stone history he has a past medical history significant for diabetes, hepatic steatosis secondary to hepatitis C which has been treated, sleep apnea, chronic back pain, obstructive sleep apnea, diverticulosis, and peripheral neuropathy. - Related Data Home Medications Medication Instructions Recorded Confirmed lisinopriL [Zestril] 5 mg PO DAILY 11/13/19 07/26/22 metFORMIN HCL [Glucophage] 1,000 mg PO HS 04/13/20 07/26/22 DULoxetine HCL [Cymbalta] 60 mg PO DAILY 06/21/21 07/26/22 Loratadine [Claritin] 10 mg PO HS 07/26/22 07/26/22 metFORMIN HCL [Glucophage] 500 mg PO DAILY 07/26/22 07/26/22 Previous Rx's Medication Instructions Recorded Pantoprazole Sodium [Protonix] 40 mg PO DAILY #30 tablet. 09/06/20 Allergies Allergy/AdvReac Type Severity Reaction Status Date / Time morphine AdvReac Nausea & Verified 07/26/22 11:17 Vomiting Review of Systems ROS Statement: Those systems with pertinent positive or pertinent negative responses have been documented in the HPI. ROS Other: All systems not noted in ROS Statement are negative. Past Medical History Past Medical History: Diabetes Mellitus, Hearing Disorder / Deafness, Liver Disease, Musculoskeletal Disorder, Skin Disorder, Sleep Apnea/CPAP/BIPAP Additional Past Medical History / Comment(s): NIDDM type II, DDD, spinal stenosis, chronic low back pain, numbness/tingling L foot, gastritis, benign colon polyps, diverticular disease, past + stool occult blood, nephrolithiasis, ERNESTO with Cpap use, eczema, past Russo's palsey History of Any Multi-Drug Resistant Organisms: None Reported Past Surgical History: Back Surgery, Orthopedic Surgery Additional Past Surgical History / Comment(s): Posterior lumbar decompression, fusion L2-3-4, L4-L5,transforaminal lumbar interbody fusion, lithotripsy, BILAT CTR, RT 4TH TRIGGER FINGER RELEASE, 3 trigger fingers released on left hand, Colonoscopy, EGD, SPINAL INJECTIONS., PAIN CLINIC PROCEDURES, HX PANCREATITIS Past Anesthesia/Blood Transfusion Reactions: Previous Problems w/ Anesthesia Additional Past Anesthesia/Blood Transfusion Reaction / Comment(s): IV Rx very painful in arm w/ last colonoscopy 10/2019. Past Psychological History: Anxiety, Depression Smoking Status: Current every day smoker Past Alcohol Use History: None Reported Past Drug Use History: None Reported - Past Family History Father Additional Family Medical History / Comment(s): AROUND AGE 70 UNK HX Mother Family Medical History: Cancer, Osteoarthritis (OA) Additional Family Medical History / Comment(s): SKIN CANCER MOM IS 87 YEARS OLD General Exam - General Exam Comments Initial Comments: GENERAL: No acute distress, well developed, well nourished. HEENT: Normocephalic, atraumatic. Pupils equal, round, reactive to light. Moist mucous membranes. LUNGS: No respiratory distress. Clear to auscultation, no adventitious sounds, no use of accessory muscles. HEART: Regular rate and rhythm without murmur, rub, or gallop. ABDOMEN: Normal bowel sounds. Soft, non-tender, non-distended. BACK: Normal inspection. Right CVA tenderness no left CVA tenderness EXTREMITIES: No edema. No tenderness. Moves all extremities. NEUROLOGIC: Alert & oriented x 3. CN II-XII grossly intact. PSYCHIATRIC: Normal affect and behavior. DERMATOLOGIC: Skin intact, without rashes or lesions noted. Limitations: no limitations Course Vital Signs 07/26/22 07/26/22 07/26/22 10:09 11:45 13:00 Temperature 98.1 F Pulse Rate 85 81 78 Respiratory 16 16 16 Rate Blood Pressure 132/77 96/74 109/76 O2 Sat by Pulse 97 96 96 Oximetry 07/26/22 14:21 Temperature Pulse Rate 73 Respiratory 16 Rate Blood Pressure 131/79 O2 Sat by Pulse 94 L Oximetry Medical Decision Making - Medical Decision Making Was pt. sent in by a medical professional or institution (, PA, INFORMATICS PHYSICIAN, urgent care, hospital, or [place] [facility]...) When possible be specific @ -Yes, his urologist Did you speak to anyone other than the patient for history (EMS, parent, family, police, friend...)? What history was obtained from this source @ -No Did you review nursing and triage notes (agree or disagree)? Why? @ -I reviewed and agree with nursing and triage notes Were old charts reviewed (outside hosp., previous admission, EMS record, old EKG, old radiological studies, urgent care reports/EKG's, [place] [facility] records)? Report findings @ -Yes, I reviewed ultrasound of the abdomen from January 2022 Differential Diagnosis (chest pain, altered mental status, abdominal pain women, abdominal pain men, vaginal bleeding, weakness, fever, dyspnea, syncope, headache, dizziness, GI bleed, back pain, seizure, CVA, palpatations, mental health, musculoskeletal)? @ -Differential Back Pain: Strain, zoster, cauda equina syndrome, epidural abscess, vertebral osteomyelitis, discitis, fracture, subluxation, disc herniation, DJD, spinal stenosis, dissection, AAA, pancreatitis, peptic ulcer disease, pyelonephritis, kidney stone, this is not meant to be an all-inclusive list. EKG interpreted by me (3pts min.). @ -None done X-rays interpreted by me (1pt min.). @ -KUB: Nonobstructive gas bowel pattern. Left renal calculi. CT interpreted by me (1pt min.). @ -CT abdomen and pelvis without contrast: Mild right hydroureter nephrosis with 5 mm calculi. Nonobstructive left renal calculi. Cirrhotic liver. U/S interpreted by me (1pt. min.). @ -None done What testing was considered but not performed or refused? (CT, X-rays, U/S, labs)? Why? @ -None What meds were considered but not given or refused? Why? @ -None Did you discuss the management of the patient with other professionals (professionals i.e. , PA, INFORMATICS PHYSICIAN, lab, RT, psych nurse, social director, .net programmer, teacher, conservation science officer, case packer)? Give summary @ -Yes, I discussed the case with Dr. Aurea mtz for urology who advised to keep patient nothing by mouth and admit the patient to medical services. He reports he will see the patient for evaluation for possible intervention. Spoke with Dr. Garvey regarding urology's recommendations. He is accepting of admission and denies further orders at this time. Was smoking cessation discussed for >3mins.? @ -No Was critical care preformed (if so, how long)? @ -No Were there social determinants of health that impacted care today? How? (Homelessness, low income, unemployed, alcoholism, drug addiction, transportatio n, low edu. Level, literacy, decrease access to med. care, [place] [facility], rehab)? @ -No Was there de-escalation of care discussed even if they declined (Discuss DNR or withdrawal of care, Hospice)? DNR status @ -No What co-morbidities impacted this encounter? (DM, HTN, Smoking, COPD, CAD, Cancer, CVA, ARF, Chemo, Hep., AIDS, mental health diagnosis, sleep apnea, morbid obesity)? @ -Nephrolithiasis history Was patient admitted / discharged? Hospital course, mention meds given and route, prescriptions, significant lab abnormalities, going to OR and other pertinent info. @ -61-year-old male presenting to the emergency room with complaints of severe right flank pain. He reports that he has been having mild right flank pain for approximately 1 week with episodes of hematuria over the last 5 days that has been intermittent. He denies any hematuria today but does report increased difficulty in urinating specifically starting a stream. Will start workup for back pain/flank pain with likely nephrolithiasis diagnosis with KUB, CBC, CMP, lactic acid, amylase, lipase, coags, urinalysis with reflex to culture and blood cultures will give IV fluid bolus. Patient with morphine ALLERGY and severe pain will give 1 mg of Dilaudid in addition to 15 mg of Toradol and IV hydration. With severity of pain will and recent hematuria will proceed with CT of the abdomen and pelvis without contrast as well. KUB notes left renal calculi. No free right renal calculi visualized. Computed tomography scan of the abdomen and pelvis demonstrates right renal stone 5 mm with mild hydroureter nephrosis. Pain initially improved with Toradol and Dilaudid but returning. Will give additional 1 L fluid bolus and additional dose of Dilaudid. CBC demonstrates platelet count 144, otherwise no abnormalities, coags normal no.CMP shows elevated glucose 144, normal renal function, normal electrolytes and normal liver function, amylase and lipase normal. Lactic acid elevated 2.5. Urinalysis reveals large blood, urine RBCs, rare bacteria, and rare mucous no concern at this time for infected stone. Spoke with patient regarding findings and given intractable pain and previous intervention urology called to discuss case. Spoke with Dr. Ayah mtz for urology who advised to admit patient to medical services keeping him nothing by mouth and continue pain management with hydration. Spoke with Dr. Garvey regarding urology recommendations. He is accepting of admission and denies any further orders at this time. Will admit patient in stable condition to observation unit under Dr. Garvey with urology consult for nephrolithiasis with mild right hydroureternephrosis Undiagnosed new problem with uncertain prognosis? @ -No Drug Therapy requiring intensive monitoring for toxicity (Heparin, Nitro, Insulin, Cardizem)? @ -No Were any procedures done? @ -No Diagnosis/symptom? @ -Left nephrolithiasis Acute, or Chronic, or Acute on Chronic? @ -Acute on chronic Uncomplicated (without systemic symptoms) or Complicated (systemic symptoms)? @ -Complicated Side effects of treatment? @ -No Exacerbation, Progression, or Severe Exacerbation? @ -No Poses a threat to life or bodily function? How? (Chest pain, [place], [place], pneumonia, PE, COPD, DKA, ARF, appy, cholecystitis, CVA, Diverticulitis, Homicidal, Suicidal, threat to staff... and all critical care pts) @ -Yes, increase risk for progressing hydronephrosis, and infection. Diagnosis/symptom? @ -Obstructive mild right hydroureternephrosis Acute, or Chronic, or Acute on Chronic? @ -Acute Uncomplicated (without systemic symptoms) or Complicated (systemic symptoms)? @ -Complicated Side effects of treatment? @ -none Exacerbation, Progression, or Severe Exacerbation] @ -no Poses a threat to life or bodily function? @ -Yes, increase risk for progressing hydronephrosis, and infection. Case discussed with Dr. White. - Lab Data Result diagrams: 07/26/22 10:53 07/26/22 10:53 Lab Results 07/26/22 07/26/22 07/26/22 Range/Units 10:53 10:53 10:53 WBC 5.0 (3.8-10.6) k/uL RBC 4.60 (4.30-5.90) m/uL Hgb 15.2 (13.0-17.5) gm/dL Hct 42.6 (39.0-53.0) % MCV 92.6 (80.0-100.0) fL MCH 33.1 (25.0-35.0) pg MCHC 35.7 (31.0-37.0) g/dL RDW 13.3 (11.5-15.5) % Plt Count 144 L (150-450) k/uL MPV 9.4 Neutrophils % 59 % Lymphocytes % 26 % Monocytes % 7 % Eosinophils % 3 % Basophils % 1 % Neutrophils # 2.9 (1.3-7.7) k/uL Lymphocytes # 1.3 (1.0-4.8) k/uL Monocytes # 0.4 (0-1.0) k/uL Eosinophils # 0.2 (0-0.7) k/uL Basophils # 0.0 (0-0.2) k/uL PT 10.2 (9.0-12.0) sec INR 1.0 (<1.2) APTT 24.2 (22.0-30.0) sec Sodium (137-145) mmol/L Potassium (3.5-5.1) mmol/L Chloride (98-107) mmol/L Carbon Dioxide (22-30) mmol/L Anion Gap mmol/L BUN (9-20) mg/dL Creatinine (0.66-1.25) mg/dL Est GFR (CKD-EPI)AfAm (>60 ml/min/1.73 sqM) Est GFR (CKD-EPI)NonAf (>60 ml/min/1.73 sqM) Glucose (74-99) mg/dL Lactic Ac Sepsis Rflx Plasma Lactic Acid Jeremie (0.7-2.0) mmol/L Calcium (8.4-10.2) mg/dL Total Bilirubin (0.2-1.3) mg/dL AST (17-59) U/L ALT (4-49) U/L Alkaline Phosphatase (38-126) U/L Total Protein (6.3-8.2) g/dL Albumin (3.5-5.0) g/dL Amylase (30-110) U/L Lipase (23-300) U/L Urine Color Yellow Urine Appearance Clear (Clear) Urine pH 7.5 (5.0-8.0) Ur Specific [place] 1.011 (1.001-1.035) Urine Protein Negative (Negative) Urine Glucose (UA) Negative (Negative) Urine Ketones Negative (Negative) Urine Blood Large H (Negative) Urine Nitrite Negative (Negative) Urine Bilirubin Negative (Negative) Urine Urobilinogen <2.0 (<2.0) mg/dL Ur Leukocyte Esterase Negative (Negative) Urine RBC 34 H (0-5) /hpf Urine WBC 1 (0-5) /hpf Urine Bacteria Rare H (None) /hpf Urine Mucus Rare H (None) /hpf 07/26/22 07/26/22 07/26/22 Range/Units 10:53 10:53 13:24 WBC (3.8-10.6) k/uL RBC (4.30-5.90) m/uL Hgb (13.0-17.5) gm/dL Hct (39.0-53.0) % MCV (80.0-100.0) fL MCH (25.0-35.0) pg MCHC (31.0-37.0) g/dL RDW (11.5-15.5) % Plt Count (150-450) k/uL MPV Neutrophils % % Lymphocytes % % Monocytes % % Eosinophils % % Basophils % % Neutrophils # (1.3-7.7) k/uL Lymphocytes # (1.0-4.8) k/uL Monocytes # (0-1.0) k/uL Eosinophils # (0-0.7) k/uL Basophils # (0-0.2) k/uL PT (9.0-12.0) sec INR (<1.2) APTT (22.0-30.0) sec Sodium 137 (137-145) mmol/L Potassium 4.5 (3.5-5.1) mmol/L Chloride 105 (98-107) mmol/L Carbon Dioxide 24 (22-30) mmol/L Anion Gap 8 mmol/L BUN 15 (9-20) mg/dL Creatinine 0.72 (0.66-1.25) mg/dL Est GFR (CKD-EPI)AfAm >90 (>60 ml/min/1.73 sqM) Est GFR (CKD-EPI)NonAf >90 (>60 ml/min/1.73 sqM) Glucose 144 H (74-99) mg/dL Lactic Ac Sepsis Rflx Y Plasma Lactic Acid Jeremie 2.5 H* (0.7-2.0) mmol/L Calcium 9.3 (8.4-10.2) mg/dL Total Bilirubin 0.8 (0.2-1.3) mg/dL AST 51 (17-59) U/L ALT 45 (4-49) U/L Alkaline Phosphatase 94 (38-126) U/L Total Protein 7.4 (6.3-8.2) g/dL Albumin 4.3 (3.5-5.0) g/dL Amylase 54 (30-110) U/L Lipase 132 (23-300) U/L Urine Color Urine Appearance (Clear) Urine pH (5.0-8.0) Ur Specific [place] (1.001-1.035) Urine Protein (Negative) Urine Glucose (UA) (Negative) Urine Ketones (Negative) Urine Blood (Negative) Urine Nitrite (Negative) Urine Bilirubin (Negative) Urine Urobilinogen (<2.0) mg/dL Ur Leukocyte Esterase (Negative) Urine RBC (0-5) /hpf Urine WBC (0-5) /hpf Urine Bacteria (None) /hpf Urine Mucus (None) /hpf - Radiology Data Radiology results: report reviewed, image reviewed Disposition Clinical Impression: Nephrolithiasis, Hydronephrosis due to obstruction of ureter Disposition: ADMITTED IP TO THIS [facility] Condition: Stable Time of Disposition: 13:25
--- NOTE | 2022-07-26 11:05 | CT ---
EXAMINATION TYPE: CT abdomen pelvis wo con CT DLP: 1063.4 mGycm, Automated exposure control for dose reduction was used. DATE OF EXAM: 07/26/2022 10:54 AM COMPARISON: CT abdomen pelvis most recent from 09/03/2020, abdominal ultrasound 08/23/2021. CLINICAL INDICATION:Male, 61 years old with history of abdominal pain; right flank pain TECHNIQUE: Standard CT of the abdomen and pelvis without IV or oral contrast. Lack of IV or oral co ntrast limits evaluation of solid and hollow organ viscera. Coronal and sagittal reformats were perfo rmed. FINDINGS: LOWER CHEST: The visualized lungs are clear. Mild coronary arterial calcifications. ABDOMEN LIVER: Redemonstration of cirrhotic appearance of the liver with nodular contour and widening of the fissures. No focal lesion within limitations of a noncontrast exam. GALLBLADDER AND BILE DUCTS: Unremarkable. PANCREAS: Unremarkable noncontrast appearance. SPLEEN: Mildly prominent in size measuring 13.4 cm in greatest dimension. ADRENAL GLANDS: Unremarkable noncontrast appearance.. KIDNEYS AND URETERS: Mild right hydroureteronephrosis with a 5 mm calculus just past the right ureter ovesical junction into the urinary bladder. No other right renal calculi identified. Nonobstructive left mid kidney 5 mm calculus. No hydronephrosis involving the left kidney. PELVIS BLADDER: 5 mm calculus near the ureters conjunction within the urinary bladder. REPRODUCTIVE: Mild prominent size prostate measuring 4.8 cm in transverse dimension. Central prostate calcifications identified. ABDOMEN & PELVIS STOMACH AND BOWEL: Stomach and duodenum are unremarkable. The appendix is within normal limits. No ev idence of bowel obstruction. PERITONEUM: No evidence of pneumoperitoneum or free fluid. VASCULATURE: Moderate atherosclerotic calcifications are present throughout the abdominal aorta and i ts branches. No evidence of aortic aneurysm. MUSCULOSKELETAL: No acute osseous abnormalities. Postsurgical changes from posterior lumbar fusion wi th bilateral pedicular screws and rods and laminectomy changes involving L2-L5. Multilevel degenerati ve disc disease. T10 limbus vertebrae redemonstrated. LYMPH NODES: No gross evidence for lymphadenopathy. SOFT TISSUE/ABDOMINAL WALL: Small fat filled umbilical hernia. Patulous fat filled right inguinal rin g. IMPRESSION: 1. Mild right hydroureteronephrosis with a 5 mm calculus just past the ureterovesical junction withi n the urinary bladder. Additional nonobstructive left renal calculus. 2. Hepatic cirrhosis.
--- NOTE | 2022-07-26 11:07 | XR ---
EXAMINATION TYPE: XR KUB DATE OF EXAM: 07/26/2022 COMPARISON: 10/27/2017 HISTORY: Pain TECHNIQUE: Single supine KUB image of the abdomen is obtained FINDINGS: Small bowel demonstrates no evidence for dilatation or air fluid levels. Gas and fecal material is seen in non-distended colon. No convincing evidence for pneumoperitoneum. 3 mm calcification overlies the left kidney is old. Stable phlebolith within the left hemipelvis. The lung bases are clear. The osseous structures are intact. IMPRESSION: 1. Overall nonobstructive bowel gas pattern.
[2022-07-26 12:05] LABS: Basophils % (A) 1 %; Eosinophils # (A) 0.2 k/uL (0-0.7); Eosinophils % (A) 3 %; HCT 42.6 % (39.0-53.0); HGB 15.2 gm/dL (13.0-17.5); Lymphocytes # (A) 1.3 k/uL (1.0-4.8); Lymphocytes % (A) 26 %; MCH 33.1 pg (25.0-35.0); MCHC 35.7 g/dL (31.0-37.0); MCV 92.6 fL (80.0-100.0); Mean Platelet Volume 9.4; Monocytes # (A) 0.4 k/uL (0-1.0); Monocytes % (A) 7 %; Neutrophils # (A) 2.9 k/uL (1.3-7.7); Neutrophils % (A) 59 %; Platelet Count 144 k/uL (150-450); RDW 13.3 % (11.5-15.5)
[2022-07-26 12:15] LABS: Partial Thromboplastin Time 24.2 sec (22.0-30.0); Prothrombin Time 10.2 sec (9.0-12.0)
[2022-07-26 12:37] LABS: Appearance,Urine Clear (Clear); Bacteria,Urine Rare /hpf; Bilirubin,Urine Negative (Negative); Blood,Urine Large (Negative); Color,Urine Yellow; Glucose,Urine (UA) Negative (Negative); Ketones,Urine Negative (Negative); Leukocyte Esterase,Urine Negative (Negative); Mucus,Urine Rare /hpf; Nitrite,Urine Negative (Negative); PH, Urine 7.5 (5.0-8.0); Protein,Urine Negative (Negative); RBC,Urine 34 /hpf (0-5); Specific Gravity,Urine 1.011 (1.001-1.035); Urobilinogen,Urine <2.0 mg/dL (<2.0); WBC,Urine 1 /hpf (0-5)
[2022-07-26 12:52] LABS: ALT 45 U/L (4-49); AST 51 U/L (17-59); African American GFR (CKD) >90 (>60 ml/min/1.73 sqM); Albumin 4.3 g/dL (3.5-5.0); Alkaline Phosphatase 94 U/L (38-126); Amylase 54 U/L (30-110); Anion Gap 8 mmol/L; Blood Urea Nitrogen 15 mg/dL (9-20); Calcium 9.3 mg/dL (8.4-10.2); Carbon Dioxide 24 mmol/L (22-30); Chloride 105 mmol/L (98-107); Glucose 144 mg/dL (74-99); Lipase 132 U/L (23-300); Non-African American GFR(CKD) >90 (>60 ml/min/1.73 sqM); Potassium 4.5 mmol/L (3.5-5.1); Sodium 137 mmol/L (137-145); Total Bilirubin 0.8 mg/dL (0.2-1.3); Total Protein 7.4 g/dL (6.3-8.2)
[2022-07-26] MEDS ORDERED: SODIUM CHLORIDE 0.9% 1,000 ML IV STA (13:01)
[2022-07-26] MEDS ORDERED: ONDANSETRON 4 MG/2 ML VIAL IVP PRN (13:23)
[2022-07-26] MEDS ORDERED: NALOXONE 0.4 MG/ML 1 ML VIAL IV PRN (13:23)
[2022-07-26] MEDS: SODIUM CHLORIDE 0.9% 1,000 ML IV SCH (14:18)
[2022-07-26] MEDS: HYDROmorphone 1 MG/ML 1 ML SYRINGE IVP PRN ×3 (15:57→22:29)
--- NOTE | 2022-07-26 16:15 | P.GSCN ---
History of Present Illness Consult date: 07/26/22 Reason for Consult: Ureteral stone History of present illness: This is a 61-year-old male admitted to the hospital with intractable pain second elizabeth to ureteral stone. He does have history of recurrent kidney stones, follows up with Dr. Gregg has required multiple ureteroscopy's with lithotripsy to address his stone. He indicated he started having severe right flank pain with radiation to the right lower quadrant. He indicated pain is associated with mild dysuria. Denies any gross hematuria, fevers or chills. In the ER he underwent a CT abdomen and pelvis that showed evidence of a 5 mm stones at the bladder versus right of the UVJ. In the ER evaluation he continues to have some pain slightly improved symptoms presentation Review of Systems - Constitutional Denies fever, Denies weight loss - EENT Ears, nose, mouth and throat: Denies dysphagia - Cardiovascular Denies chest pain, Denies shortness of breath - Respiratory Denies cough, Denies 7 - Gastrointestinal Reports abdominal pain - Genitourinary Reports flank pain - Neurological Denies headaches, Denies syncope Past Medical History Past Medical History: Diabetes Mellitus, Hearing Disorder / Deafness, Liver D isease, Musculoskeletal Disorder, Skin Disorder, Sleep Apnea/CPAP/BIPAP Additional Past Medical History / Comment(s): NIDDM type II, DDD, spinal stenosis, chronic low back pain, numbness/tingling L foot, gastritis, benign colon polyps, diverticular disease, past + stool occult blood, nephrolithiasis, ERNESTO with Cpap use, eczema, past Russo's palsey History of Any Multi-Drug Resistant Organisms: None Reported Past Surgical History: Back Surgery, Orthopedic Surgery Additional Past Surgical History / Comment(s): Posterior lumbar decompression, fusion L2-3-4, L4-L5,transforaminal lumbar interbody fusion, lithotripsy, BILAT CTR, RT 4TH TRIGGER FINGER RELEASE, 3 trigger fingers released on left hand, Colonoscopy, EGD, SPINAL INJECTIONS., PAIN CLINIC PROCEDURES, HX PANCREATITIS Past Anesthesia/Blood Transfusion Reactions: Previous Problems w/ Anesthesia Additional Past Anesthesia/Blood Transfusion Reaction / Comm: IV Rx very painful in arm w/ last colonoscopy 10/2019. Past Psychological History: Anxiety, Depression Smoking Status: Current every day smoker Past Alcohol Use History: None Reported Past Drug Use History: None Reported - Past Family History Father Additional Family Medical History / Comment(s): AROUND AGE 70 UNK HX Mother Family Medical History: Cancer, Osteoarthritis (OA) Additional Family Medical History / Comment(s): SKIN CANCER MOM IS 87 YEARS OLD Medications and Allergies Home Medications Medication Instructions Recorded Confirmed Type lisinopriL [Zestril] 5 mg PO DAILY 11/13/19 07/26/22 History metFORMIN HCL [Glucophage] 1,000 mg PO HS 04/13/20 07/26/22 History Pantoprazole Sodium [Protonix] 40 mg PO DAILY #30 tablet. 09/06/20 07/26/22 Rx DULoxetine HCL [Cymbalta] 60 mg PO DAILY 06/21/21 07/26/22 History Loratadine [Claritin] 10 mg PO HS 07/26/22 07/26/22 History metFORMIN HCL [Glucophage] 500 mg PO DAILY 07/26/22 07/26/22 History Allergies Allergy/AdvReac Type Severity Reaction Status Date / Time morphine AdvReac Nausea & Verified 07/26/22 11:17 Vomiting Surgical - Exam Vital Signs Temp Pulse Resp BP Pulse Ox 98.1 F 85 16 132/77 97 07/26/22 10:09 07/26/22 10:09 07/26/22 10:09 07/26/22 10:09 07/26/22 10:09 - General no distress, moderate pain - Eyes normal ocular movement, no pale - ENT normal nares, normal mucosa - Respiratory normal expansion, normal respiratory effort Results - Labs 07/26/22 10:53 07/26/22 10:53 Abnormal Lab Results - Last 24 Hours (Table) 07/26/22 07/26/22 07/26/22 Range/Units 10:53 10:53 10:53 Plt Count 144 L (150-450) k/uL Glucose 144 H (74-99) mg/dL Plasma Lactic Acid Jeremie (0.7-2.0) mmol/L Urine Blood Large H (Negative) Urine RBC 34 H (0-5) /hpf Urine Bacteria Rare H (None) /hpf Urine Mucus Rare H (None) /hpf 07/26/22 Range/Units 10:53 Plt Count (150-450) k/uL Glucose (74-99) mg/dL Plasma Lactic Acid Jeremie 2.5 H* (0.7-2.0) mmol/L Urine Blood (Negative) Urine RBC (0-5) /hpf Urine Bacteria (None) /hpf Urine Mucus (None) /hpf Diabetes panel 07/26/22 Range/Units 10:53 Sodium 137 (137-145) mmol/L Potassium 4.5 (3.5-5.1) mmol/L Chloride 105 (98-107) mmol/L Carbon Dioxide 24 (22-30) mmol/L BUN 15 (9-20) mg/dL Creatinine 0.72 (0.66-1.25) mg/dL Glucose 144 H (74-99) mg/dL Calcium 9.3 (8.4-10.2) mg/dL AST 51 (17-59) U/L ALT 45 (4-49) U/L Alkaline Phosphatase 94 (38-126) U/L Total Protein 7.4 (6.3-8.2) g/dL Albumin 4.3 (3.5-5.0) g/dL Calcium panel 07/26/22 Range/Units 10:53 Calcium 9.3 (8.4-10.2) mg/dL Albumin 4.3 (3.5-5.0) g/dL Pituitary panel 07/26/22 Range/Units 10:53 Sodium 137 (137-145) mmol/L Potassium 4.5 (3.5-5.1) mmol/L Chloride 105 (98-107) mmol/L Carbon Dioxide 24 (22-30) mmol/L BUN 15 (9-20) mg/dL Creatinine 0.72 (0.66-1.25) mg/dL Glucose 144 H (74-99) mg/dL Calcium 9.3 (8.4-10.2) mg/dL Adrenal panel 07/26/22 Range/Units 10:53 Sodium 137 (137-145) mmol/L Potassium 4.5 (3.5-5.1) mmol/L Chloride 105 (98-107) mmol/L Carbon Dioxide 24 (22-30) mmol/L BUN 15 (9-20) mg/dL Creatinine 0.72 (0.66-1.25) mg/dL Glucose 144 H (74-99) mg/dL Calcium 9.3 (8.4-10.2) mg/dL Total Bilirubin 0.8 (0.2-1.3) mg/dL AST 51 (17-59) U/L ALT 45 (4-49) U/L Alkaline Phosphatase 94 (38-126) U/L Total Protein 7.4 (6.3-8.2) g/dL Albumin 4.3 (3.5-5.0) g/dL Assessment and Plan Assessment: 61-year-old male with history of a 5 mm right sided ureteral stone. I reviewed images discussed with him the stone is in the bladder or right at the UVJ. He continues to have pain. Discussed with him sometime pain might take up to 24 hours before completely resolved after passing a stone. At this time discussed with him wll continue with pain were regimen and IV fluids up. If he continues to have persistent pain tomorrow, the plan is to proceed with right-sided ureteroscopy to address his stone. But if his pain resolves tomorrow than he's okay for discharge -Nothing by mouth past midnight -Straining all urine -Possible right-sided ureteroscopy with holmium laser tomorrow if having persistent pain
[2022-07-26] MEDS: NICOTINE 21MG/24HR PATCH TRANSDERM SCH (19:19)
[2022-07-26] MEDS ORDERED: DEXTROSE 50% SYRINGE 50 ML IVP PRN ×2 (22:52)
[2022-07-27] MEDS: HYDROmorphone 1 MG/ML 1 ML SYRINGE IVP PRN ×3 (01:30→08:14)
[2022-07-27] MEDS: SODIUM CHLORIDE 0.9% 1,000 ML IV SCH (04:54)
[2022-07-27 06:48] LABS: Glucose,Whole Blood 112 mg/dL (70-110)
[2022-07-27] MEDS ORDERED: INSULIN ASPART (NovoLOG) 100 UNIT/ML VIAL SQ SCH (07:30)
[2022-07-27 08:01] VITALS: BP 119/66; PULSE 70; RESP 18; TEMP 97.8
[2022-07-27] MEDS: NICOTINE 21MG/24HR PATCH TRANSDERM SCH (08:27)
[2022-07-27] MEDS ORDERED: TAMSULOSIN 0.4 MG CAP.ER.24H PO SCH (08:30)
--- NOTE | 2022-07-27 08:36 | P.PN ---
Subjective Progress Note Date: 07/27/22 Principal diagnosis: Obstructive nephrolithiasis This is a 61-year-old male admitted to the hospital with intractable pain secondary to ureteral stone. He does have history of recurrent kidney stones, follows up with Dr. Gregg has required multiple ureteroscopy's with lithotripsy to address his stone. He indicated he started having severe right flank pain with radiation to the right lower quadrant. He indicated pain is associated with mild dysuria. Denies any gross hematuria, fevers or chills. In the ER he underwent a CT abdomen and pelvis that showed evidence of a 5 mm stones at the bladder versus right of the UVJ. In the ER evaluation he continues to have some pain slightly improved symptoms presentation. Objective - Vital Signs Vital signs: Vital Signs Temp 97.8 F 07/27/22 07:00 Pulse 70 07/27/22 07:00 Resp 18 07/27/22 07:00 BP 119/66 07/27/22 07:00 Pulse Ox 93 L 07/27/22 07:00 FiO2 Intake & Output 07/26/22 07/27/22 07/27/22 18:59 06:59 18:59 Weight 96.162 kg Other: Voiding Method Toilet Toilet # Voids 2 - Exam General: Well developed, well nourished. No acute distress. HEENT: Head is atraumatic, normocephalic. Lungs: Respirations even and nonlabored. Abdomen/GI: Right flank tenderness. Skin: Warm and dry Neurologic: Alert and oriented 3, CN II-XII grossly intact. No focal deficits. Psychiatric: Appropriate mood and affect. - Labs CBC & Chem 7: 07/26/22 10:53 07/26/22 10:53 Labs: Abnormal Lab Results - Last 24 Hours (Table) 07/26/22 07/26/22 07/26/22 Range/Units 10:53 10:53 10:53 Plt Count 144 L (150-450) k/uL Glucose 144 H (74-99) mg/dL POC Glucose (mg/dL) (70-110) mg/dL Plasma Lactic Acid Jeremie (0.7-2.0) mmol/L Urine Blood Large H (Negative) Urine RBC 34 H (0-5) /hpf Urine Bacteria Rare H (None) /hpf Urine Mucus Rare H (None) /hpf 07/26/22 07/27/22 Range/Units 10:53 06:47 Plt Count (150-450) k/uL Glucose (74-99) mg/dL POC Glucose (mg/dL) 112 H (70-110) mg/dL Plasma Lactic Acid Jeremie 2.5 H* (0.7-2.0) mmol/L Urine Blood (Negative) Urine RBC (0-5) /hpf Urine Bacteria (None) /hpf Urine Mucus (None) /hpf Assessment and Plan Assessment: The patient states his right flank pain has improved. He reports being able to urinate better without burning. No hematuria. He has been straining his urine and states he has not passed the stone yet. Given that his pain has improved and he is able to urinate better it is possible the stone may have moved into the bladder. His pain is likely to continue to improve as is hydronephrosis resolves. At this point we will hold of on any surgical intervention. The stone is likely to pass spontaneously. From a urological standpoint the patient may be discharged home. We recommend Flomax for one week and being discharged with Toradol for pain management. He was instructed to follow up with Dr. Gregg in the office if his pain worsens. (1) Hydronephrosis due to obstruction of ureter Current Visit: Yes Status: Acute Code(s): N13.1 - HYDRONEPHROSIS W URETERAL STRICTURE, NEC SNOMED Code(s): 89692375 Plan: - No surgical intervention planned - Patient may be discharged home from a urological standpoint - Recommend Toradol for pain management - Recommend Flomax x 1 week - Follow up with Dr. Gregg as needed Impression and plan of care have been directed as dictated by the signing physician. Aisha Flower nurse practitioner acting as scribe for signing physician. Aisha Flower [facility] Palliative Care/Urology Spectralink [phone] Email: [email or web address] I personally performed and participated in the history, physical, the decision making, I agree with the assessment and plan of QUAL FIELD MANAGER
[2022-07-27] MEDS ORDERED: PANTOPRAZOLE 40 MG/10 ML VIAL IVP SCH (11:45)
--- NOTE | 2022-07-27 12:05 | P.HPIM ---
History of Present Illness H&P Date: 07/27/22 Chief Complaint: Right flank pain, mild dysuria History and Physical and Discharge Summary: This is a 61-year-old gentleman with past medical history of recurrent kidney stones ,diabetes mellitus II, hard of hearing, liver disease, muscle skeletal disorder, sleep apnea- wears CPAP/BiPAP, lumbar decompression fusion orthopedic surgeries, anxiety, depression, ongoing nicotine dependence, history of alcohol abuse reports last consumption 20 years ago, treated hepatitis C presented to the ER with severe right flank pain, dysuria and multiple other medical issues. Denies fevers, denies gross hematuria. CT of abdomen and pelvis reported mild right hydroureteronephrosis 5 mm stone just past the UVJ within the urinary bladder with additional nonobstructive left renal calculus, hepatic cirrhosis. KUB reported overall nonobstructive bowel gas pattern. Placed on IV fluids, pain management. Evaluated by urology with recommendations noted and appreciated. Including potential right-sided ureteroscopy if pain persisted. Pain improving. Cleared by urology for discharge. Denies chest pain, palpitations or shortness of breath. Afebrile, normal WBC. Lactic acid 2.5, normalized with IV fluid hydration down to 1. UA negative. Review of Systems ROS Statement: Those systems with pertinent positive or pertinent negative responses have been documented in the HPI. ROS Other: All systems not noted in ROS Statement are negative. Past Medical History Past Medical History: Diabetes Mellitus, Hearing Disorder / Deafness, Liver Disease, Musculoskeletal Disorder, Skin Disorder, Sleep Apnea/CPAP/BIPAP Additional Past Medical History / Comment(s): NIDDM type II, DDD, spinal stenosis, chronic low back pain, numbness/tingling L foot, gastritis, benign colon polyps, diverticular disease, past + stool occult blood, nephrolithiasis, ERNESTO with Cpap use, eczema, past Russo's palsey History of Any Multi-Drug Resistant Organisms: None Reported Past Surgical History: Back Surgery, Orthopedic Surgery Additional Past Surgical History / Comment(s): Posterior lumbar decompression, fusion L2-3-4, L4-L5,transforaminal lumbar interbody fusion, lithotripsy, BILAT CTR, RT 4TH TRIGGER FINGER RELEASE, 3 trigger fingers released on left hand, Colonoscopy, EGD, SPINAL INJECTIONS., PAIN CLINIC PROCEDURES, HX PANCREATITIS Past Anesthesia/Blood Transfusion Reactions: Previous Problems w/ Anesthesia Additional Past Anesthesia/Blood Transfusion Reaction / Comment(s): IV Rx very painful in arm w/ last colonoscopy 10/2019. Past Psychological History: Anxiety, Depression Smoking Status: Current every day smoker Past Alcohol Use History: None Reported Past Drug Use History: None Reported - Past Family History Father Additional Family Medical History / Comment(s): AROUND AGE 70 UNK HX Mother Family Medical History: Cancer, Osteoarthritis (OA) Additional Family Medical History / Comment(s): SKIN CANCER MOM IS 87 YEARS OLD Medications and Allergies Home Medications Medication Instructions Recorded Confirmed Type lisinopriL [Zestril] 5 mg PO DAILY 11/13/19 07/26/22 History metFORMIN HCL [Glucophage] 1,000 mg PO HS 04/13/20 07/26/22 History Pantoprazole Sodium [Protonix] 40 mg PO DAILY #30 tablet. 09/06/20 07/26/22 Rx DULoxetine HCL [Cymbalta] 60 mg PO DAILY 06/21/21 07/26/22 History Loratadine [Claritin] 10 mg PO HS 07/26/22 07/26/22 History metFORMIN HCL [Glucophage] 500 mg PO DAILY 07/26/22 07/26/22 History Ketorolac [Toradol] 10 mg PO Q6HR PRN #28 tab 07/27/22 Rx Tamsulosin [Flomax] 0.4 mg PO PC-BRKFST #10 cap 07/27/22 Rx Allergies Allergy/AdvReac Type Severity Reaction Status Date / Time morphine AdvReac Nausea & Verified 07/26/22 11:17 Vomiting Physical Exam Vitals: Vital Signs Temp Pulse Pulse Resp BP BP Pulse Ox 07/27/22 07:00 97.8 F 70 18 119/66 93 L 07/27/22 06:37 97.6 F 71 16 127/77 98 07/26/22 21:35 97.6 F 69 17 123/74 94 L 07/26/22 20:30 107/74 92 L 07/26/22 20:15 104/75 92 L 07/26/22 20:00 112/68 92 L 07/26/22 19:13 78 18 103/77 95 07/26/22 19:00 16 131/79 94 L 07/26/22 18:00 131/79 07/26/22 17:00 131/79 07/26/22 16:00 131/79 94 L 07/26/22 15:00 131/79 97 07/26/22 14:21 73 16 131/79 94 L 07/26/22 14:00 109/76 93 L 07/26/22 13:00 78 16 109/76 96 07/26/22 12:00 96/74 94 L 07/26/22 11:45 81 16 96/74 96 07/26/22 11:39 97 Intake and Output 07/26/22 07/27/22 07/27/22 22:59 06:59 14:59 Other: Voiding Method Toilet Toilet # Voids 1 2 Weight 96.162 kg PHYSICAL EXAM: VITAL SIGNS: [As above] GENERAL: Sitting up in bed, no acute distress HEENT: Conjunctivae normal. eyes normal. Oral mucosa dry NECK: Supple, No JVD. No thyroid enlargement. No LNs CARDIOVASCULAR: S1, S2 regular.. No murmur RESPIRATION: Nonlabored, Breath sounds diminished in the bases. No rhonchi or crackles. No bronchial breathing. ABDOMEN: Soft, nondistended, tender right flank ,No guarding. no masses palpable. No ascites, No hepatosplenomegaly.Bowel sounds heard. LEGS: No edema. no swelling . PSYCHIATRY: Alert and oriented X3, mood and affect normal. NERVOUS SYSTEM: Cranial N 2-12 grossly normal. Moves all 4 limbs. No focal deficits. Strength and sensation grossly intact. Skin: Warm and dry, no rash Results CBC & Chem 7: 07/26/22 10:53 07/26/22 10:53 Labs: Abnormal Lab Results - Last 24 Hours (Table) 07/26/22 07/26/22 07/26/22 Range/Units 10:53 10:53 10:53 Plt Count 144 L (150-450) k/uL Glucose 144 H (74-99) mg/dL POC Glucose (mg/dL) (70-110) mg/dL Hemoglobin A1c (0.0-6.0) % Plasma Lactic Acid Jeremie (0.7-2.0) mmol/L Urine Blood Large H (Negative) Urine RBC 34 H (0-5) /hpf Urine Bacteria Rare H (None) /hpf Urine Mucus Rare H (None) /hpf 07/26/22 07/26/22 07/27/22 Range/Units 10:53 10:53 06:47 Plt Count (150-450) k/uL Glucose (74-99) mg/dL POC Glucose (mg/dL) 112 H (70-110) mg/dL Hemoglobin A1c 6.9 H (0.0-6.0) % Plasma Lactic Acid Jeremie 2.5 H* (0.7-2.0) mmol/L Urine Blood (Negative) Urine RBC (0-5) /hpf Urine Bacteria (None) /hpf Urine Mucus (None) /hpf Thrombosis Risk Factor Assmnt - Choose All That Apply Any of the Below Risk Factors Present?: Yes Each Factor Represents 1 point: Age 41-60 years, Obesity (BMI >25) Other Risk Factors: No Other congenital or acquired thrombophilia - If yes, enter type in comment: No Thrombosis Risk Factor Assessment Total Risk Factor Score: 2 Thrombosis Risk Factor Assessment Level: Low Risk Assessment and Plan Assessment: Hydronephrosis secondary to obstruction or ureter Liver cirrhosis, history of History of alcohol abuse, last drink reported 20 years ago History of hepatitis C Diabetes mellitus type 2 Hard of hearing Chronic back pain ,history of multiple orthopedic surgeries Anxiety Depression Ongoing nicotine dependence Obesity, BMI 35 Obstructive sleep apnea ,wears CPAP/BiPAP Plan: Continue on current medication regime, monitoring and symptomatic treatment. Increase ambulation as tolerated. Evaluated by urology, with no surgical intervention recommended at this time. Placed on Flomax. Cleared by urology for discharge, recommending Toradol for pain management and Flomax for 1 week with expected spontaneous passing of stone. Significant clinical improvement. Patient will be discharged home today in a stable condition with guarded prognosis. Discharge Medication List lisinopriL [Zestril] 5 mg PO DAILY 11/13/19 [History] metFORMIN HCL [Glucophage] 1,000 mg PO HS 04/13/20 [History] Pantoprazole Sodium [Protonix] 40 mg PO DAILY #30 tablet 09/06/20 [Rx] DULoxetine HCL [Cymbalta] 60 mg PO DAILY 06/21/21 [History] Loratadine [Claritin] 10 mg PO HS 07/26/22 [History] metFORMIN HCL [Glucophage] 500 mg PO DAILY 07/26/22 [History] Ketorolac [Toradol] 10 mg PO Q6HR PRN #28 tab 07/27/22 [Rx] Tamsulosin [Flomax] 0.4 mg PO PC-BRKFST #10 cap 07/27/22 [Rx] The impression and plan of care has been dictated as directed. : I performed a history and examination of this patient, discussed the same with the dictator. I agree with the dictator's note ,documented as a scribe. Any additional findings or plans will be noted.
[2022-07-27 12:16] LABS: Glucose,Whole Blood 116 mg/dL (70-110)
[2022-07-27] MEDS ORDERED: LORATADINE 10 MG TAB PO SCH (21:00)
[2022-07-28] MEDS ORDERED: DULoxetine HCL 60 MG CAPSULE.DR PO SCH (09:00)
== END 2022-07-27 12:48 | disposition home or self-care (01) ==
LOC: EC 10:01 → 6NMEDSUR 14:44
PROVIDERS: ADMIT Family Medicine; ATTEND Family Medicine
DX: N13.1 Hydronephrosis with ureteral stricture, not elsewhere classified (principal); G89.29 Other chronic pain; M54.9 Dorsalgia, unspecified; G47.33 Obstructive sleep apnea (adult) (pediatric); E11.42 Type 2 diabetes mellitus with diabetic polyneuropathy; K76.0 Fatty (change of) liver, not elsewhere classified; F32.A Depression, unspecified; F41.9 Anxiety disorder, unspecified; H91.90 Unspecified hearing loss, unspecified ear; F17.200 Nicotine dependence, unspecified, uncomplicated; E66.9 Obesity, unspecified; Z68.35 Body mass index [BMI] 35.0-35.9, adult; Z86.19 Personal history of other infectious and parasitic diseases; Z87.442 Personal history of urinary calculi; Z79.899 Other long term (current) drug therapy; Z79.84 Long term (current) use of oral hypoglycemic drugs; Z88.6 Allergy status to analgesic agent
CPT/HCPCS: 96361 ×3; 96376 ×2; 96374; 96375; 99285; 36415; 80053; 82150; 83605; 83690; 85025; 85610; 85730; 81001; 87040; 83036; 74018; 74176; G0378 ×2; S4990 ×2; J1170 ×2; J1885

== ENCOUNTER → 2022-08-01 | Outpatient (CLI) | payer MEDICARE ==
--- NOTE | 2022-08-01 11:13 | XR ---
EXAMINATION TYPE: XR KUB DATE OF EXAM: 08/01/2022 HISTORY: Pain Comparison: 07/26/2022Single KUB is submitted for interpretation. Findings: Right renal calculi: Right kidney is obscured by overlying bowel content. Right ureteral calculi: Several calculi right hemipelvis may reflect phlebolith versus a distal urete ral calculus. Correlate clinically. Left renal calculi: A few sub-3 mm left-sided renal calculi noted. Left ureteral calculi: None Visualized. Pelvic calcifications: Yes Bowel gas pattern is unremarkable. No free air. No mass effects. IMPRESSION: 1. As above
== END | disposition home or self-care (01) ==
LOC: RADXRMAIN 08:38
PROVIDERS: ATTEND Urology
DX: N20.1 Calculus of ureter (principal)
CPT/HCPCS: 74018

== ENCOUNTER → 2022-08-02 | Outpatient (CLI) | payer MEDICARE ==
--- NOTE | 2022-08-02 12:32 | US ---
EXAMINATION TYPE: US abdomen limited DATE OF EXAM: 08/02/2022 COMPARISON: prior US and CT in PACs CLINICAL HISTORY: K74.60 UNSPECIFIED CIRRHOSIS OF LIVER. TECHNIQUE: Multiple sonographic images of the right upper quadrant are obtained. FINDINGS: EXAM MEASUREMENTS: Liver Length: 17.8 cm Gallbladder Wall: 0.2 cm CBD: 0.5 cm Right Kidney: 10.0 x 4.1 x 5.5 cm MATE RELIEF NOTES:some exam limitations due to overlying bowel gas Pancreas: Obscured by bowel gas Liver: upper limits in size, heterogeneous and attenuating, focal sparing at jonathan and adj to gb Gallbladder: wnl Evidence for sonographic Tena's sign: no CBD: wnl Right Kidney: wnl IMPRESSION: 1. Cirrhotic liver with superimposed Hepatic steatosis with focal fatty sparing. No suspicious cirilo s identified. 2. No evidence for acute abdominal process.
[2022-08-02 15:33] LABS: Basophils # (A) 0.07 X 10*3/uL (0.00-0.10); Basophils % (A) 1.3 %; Eosinophils % (A) 5.7 %; HCT 45.9 % (39.6-50.0); HGB 15.6 g/dL (13.0-17.0); Immature Grans, Automated 0.4 %; Lymphocytes # (A) 1.37 X 10*3/uL (0.90-5.00); Lymphocytes % (A) 25.9 %; MCH 31.6 pg (27.0-32.0); MCV 92.9 fL (80.0-97.0); Mean Platelet Volume 11.5 fL (9.5-12.2); Monocytes # (A) 0.63 X 10*3/uL (0.20-1.00); Monocytes % (A) 11.9 %; NRBC Per 100 WBC 0 /100 WBCS (0.0-0.0); Neutrophils % (A) 54.8 %; Platelet Count 188 X 10*3/uL (140-440); RBC 4.94 X 10*6/uL (4.40-5.60); RDW 12.9 % (11.5-14.5); WBC 5.29 X 10*3/uL (4.50-10.00)
[2022-08-02 16:06] LABS: African American GFR (CKD) 110.8 (60.0-200.0); Albumin 4.7 g/dL (3.8-4.9); Albumin/Globulin Ratio 1.55 (1.60-3.17); BUN/Creat Ratio 12.06 Ratio (12.00-20.00); Blood Urea Nitrogen 10.2 mg/dL (9.0-27.0); Calcium 9.8 mg/dL (8.7-10.3); Carbon Dioxide 25.3 mmol/L (20.0-27.5); Non-African American GFR(CKD) 95.6 (60.0-200.0); Potassium 4.6 mmol/L (3.5-5.5); Total Bilirubin 0.4 mg/dL (0.30-1.20); Total Protein 7.7 g/dL (6.2-8.2)
== END | disposition home or self-care (01) ==
LOC: RADUSWWP 11:56
PROVIDERS: ATTEND Internal Medicine Gastroenterology
DX: K74.60 Unspecified cirrhosis of liver (principal); K76.0 Fatty (change of) liver, not elsewhere classified
CPT/HCPCS: 76705; 80053; 82105; 85025

== ENCOUNTER 2023-01-24 07:37 | Day surgery (SDC) | payer MEDICARE ==
[2023-01-20 11:09] VITALS: BMI 30.4
[2023-01-24] MEDS: LACTATED RINGERS 1,000 ML IV SCH ×2 (08:15→08:31)
[2023-01-24 08:16] LABS: Glucose,Whole Blood 149 mg/dL (70-110)
[2023-01-24 08:18] VITALS: TEMP 97.4
[2023-01-24] MEDS ORDERED: LIDOCAINE 2% INJ 20 MG/ML (2 ML VIAL) ONE (08:52)
[2023-01-24] MEDS ORDERED: PROPOFOL 10 MG/ML 20 ML VIAL IV ONE (08:52)
--- NOTE | 2023-01-24 09:10 | P.PCN ---
Date of Procedure: 01/24/23 Procedure(s) Performed: Brief history: Patient is a pleasant 62-year-old white male scheduled for an elective upper endoscopy as well as colonoscopy as a part of screening for esophageal varices/history of liver cirrhosis and prior history of colon polyps Procedure performed: Esophagogastroduodenoscopy with biopsy Colonoscopy with snare polypectomy and Endo Clip Placement Preoperative diagnosis: History of liver cirrhosis/screening for esophageal varices History of colon polyps Anesthesia: MAC Procedure: After informed consent was obtained from the patient was brought into the endoscopy unit and IV sedation was administered by anesthesia under continuous monitoring. Initially upper endoscopy was done. The Olympus GF 160 video endoscope was inserted inserted into the mouth and esophagus intubated without any difficulty and was gradually advanced into the stomach and duodenum and carefully examined. The bulb and second part of the duodenum appeared normal. The scope was then withdrawn into the stomach adequately insufflated with air and upon careful examination the antrum had mild diffuse gastritis and biopsies were done from this area. Mucosa of the body, cardia and fundus appeared normal. No gastric varices identified. The scope was then withdrawn into the esophagus. The GE junction was located at 40 cm to the incisors. It appeared regular with no erythema erosions or ulcerations. No esophageal varices seen. Rest of the esophagus appeared normal. Patient tolerated the procedure well. At this time the patient continued to remain sedation. Initial digital rectal examination was normal. Olympus CF 160 video colonoscope was then inserted into the rectum and gradually advanced to the cecum without any difficulty. Careful examination was performed as the scope was gradually being withdrawn. The prep was excellent. The cecum, ascending colon appeared normal. In the proximal transverse colon there was a 1 cm polyp removed by snare polypectomy. In the mid to transverse colon at 70 cm from the anal verge there was a 3 cm broad- based polyp that we switch snare polypectomy followed by Endo Clip placement and almost complete polypectomy accomplished. In the descending colon there was a 7 mm polyp removed by snare polypectomy. Rest of the, transverse colon, descending colon, sigmoid colon and rectum appeared normal. Retroflexion was performed in the rectum and no lesions were noted. Patient tolerated the procedure well. Impression: 1. Upper endoscopy revealed mild antral gastritis but no evidence of gastric or esophageal varices 2. Colonoscopy revealed: a) 3 cm broad-based mid transverse colon polyp at 70 cm from the anal verge status post piecemeal snare polypectomy followed by Endo Clip placement and almost complete polypectomy accomplished b) 1 cm proximal transverse colon polyp status post polypectomy c) 7 mm descending colon polyp status post polypectomy Recommendations: Findings of this examination were discussed with the patient as well as his family. He was advised to follow with the biopsy results. Recommend repeat upper endoscopy in 3 years to screen for esophageal varices. If the biopsies all revealed adenoma he can have a repeat colonoscopy in one year.
[2023-01-24 09:15] VITALS: RESP 16
[2023-01-24 09:28] VITALS: BP 125/74; PULSE 74
== END 2023-01-24 09:58 ==
LOC: ORWHC2ENDO 07:37
PROVIDERS: ATTEND Internal Medicine Gastroenterology
DX: Z12.11 Encounter for screening for malignant neoplasm of colon (principal); D12.3 Benign neoplasm of transverse colon; D12.4 Benign neoplasm of descending colon; K29.50 Unspecified chronic gastritis without bleeding; K74.60 Unspecified cirrhosis of liver; I10 Essential (primary) hypertension; E11.9 Type 2 diabetes mellitus without complications; F17.200 Nicotine dependence, unspecified, uncomplicated; F12.90 Cannabis use, unspecified, uncomplicated; K21.9 Gastro-esophageal reflux disease without esophagitis; Z79.811 Long term (current) use of aromatase inhibitors; Z79.84 Long term (current) use of oral hypoglycemic drugs; Z79.899 Other long term (current) drug therapy; Z88.5 Allergy status to narcotic agent
CPT/HCPCS: 88305; 45382; 45385; 43239; J2704; J2001

== ENCOUNTER → 2023-01-30 | Outpatient (CLI) | payer MEDICARE ==
--- NOTE | 2023-01-30 08:51 | US ---
EXAMINATION TYPE: US liver DATE OF EXAM: 01/30/2023 COMPARISON: Multiple most recent from 1123 CLINICAL INDICATION: Male, 62 years old with history of K74.60 CIRRHOSIS OF LIVER; Cirrhosis of liver TECHNIQUE: Multiple sonographic images of the right upper quadrant are obtained. FINDINGS: EXAM MEASUREMENTS: Liver Length: 16.2 cm Gallbladder Wall: 0.2 cm CBD: 0.2 cm Right Kidney: 10.1x4.4x5.8 cm TIERCE FILLER NOTES: Pancreas: heterogenous Liver: increased size and echogenicity no suspicious observations. No solid mass or cystic structur es. Gallbladder: wnl Evidence for sonographic Tena's sign: No CBD: wnl Right Kidney: wnl exam slightly limited by bowel and body habitus IMPRESSION: 1. Hepatic cirrhosis without suspicious observations. 2. No evidence for acute process.
[2023-01-30 15:31] LABS: Basophils # (A) 0.05 X 10*3/uL (0.00-0.10); Basophils % (A) 0.7 %; Eosinophils # (A) 0.33 X 10*3/uL (0.04-0.35); Eosinophils % (A) 4.6 %; HCT 40.7 % (39.6-50.0); HGB 14.1 d/dL (13.0-17.0); Lymphocytes # (A) 1.28 X 10*3/uL (0.90-5.00); Lymphocytes % (A) 17.9 %; MCHC 34.6 d/dL (32.0-37.0); MCV 95.3 FL (80.0-97.0); Monocytes # (A) 0.67 X 10*3/uL (0.20-1.00); Monocytes % (A) 9.4 %; NRBC Per 100 WBC 0 X 10*3/uL (0.00-0.01); Neutrophils # (A) 4.79 X 10*3/uL (1.80-7.70); Platelet Count 149 X 10*3/uL (140-440); RBC 4.27 X 10*6/uL (4.40-5.60); RDW 13.2 % (11.5-14.5); WBC 7.15 X 10*3/uL (4.50-10.00)
[2023-01-30 16:06] LABS: ALT 46 U/L (10-49); AST 45 U/L (14-35); Albumin 4.5 d/dL (3.8-4.9); Albumin/Globulin Ratio 1.73 Ratio (1.60-3.17); Alkaline Phosphatase 91 U/L (41-126); BUN/Creat Ratio 13.89 Ratio (12.00-20.00); Blood Urea Nitrogen 12.5 mg/dL (9.0-27.0); Calcium 9.9 mg/dL (8.7-10.3); Chloride 103 mmol/L (96-109); Globulin 2.6 d/dL (1.6-3.3); Glucose 143 mg/dL (70-110); Potassium 5.2 mmol/L (3.5-5.5); Sodium 140 mmol/L (135-145); Total Bilirubin 0.6 mg/dL (0.3-1.2); Total Protein 7.1 d/dL (6.2-8.2)
== END | disposition home or self-care (01) ==
LOC: RADUSWWP 07:55
PROVIDERS: ATTEND Internal Medicine Gastroenterology
DX: K74.60 Unspecified cirrhosis of liver (principal)
CPT/HCPCS: 76705; 80053; 82105; 85025

== ENCOUNTER → 2023-07-03 | Outpatient (CLI) | payer MEDICARE ==
[2023-07-03 11:06] LABS: Basophils # (A) 0.06 X 10*3/uL (0.00-0.10); Eosinophils # (A) 0.25 X 10*3/uL (0.04-0.35); HCT 44.3 % (39.6-50.0); HGB 15.2 g/dL (13.0-17.0); Lymphocytes # (A) 1.18 X 10*3/uL (0.90-5.00); Lymphocytes % (A) 18.8 %; MCH 32.5 pg (27.0-32.0); MCHC 34.3 g/dL (32.0-37.0); MCV 94.7 FL (80.0-97.0); Mean Platelet Volume 12.2 FL (9.5-12.2); Monocytes # (A) 0.57 X 10*3/uL (0.20-1.00); Monocytes % (A) 9.1 %; NRBC Per 100 WBC 0 X 10*3/uL (0.00-0.01); Neutrophils % (A) 66.8 %; Platelet Count 145 X 10*3/uL (140-440); RBC 4.68 X 10*6/uL (4.40-5.60); RDW 13.1 % (11.5-14.5); WBC 6.28 X 10*3/uL (4.50-10.00)
[2023-07-03 11:20] LABS: ALT 48 U/L (10-49); AST 47 U/L (14-35); Albumin 4.6 g/dL (3.8-4.9); Albumin/Globulin Ratio 1.53 Ratio (1.60-3.17); Alkaline Phosphatase 119 U/L (41-126); BUN/Creat Ratio 14.25 Ratio (12.00-20.00); Blood Urea Nitrogen 11.4 mg/dL (9.0-27.0); Calcium 10.1 mg/dL (8.7-10.3); Carbon Dioxide 27.6 mmol/L (21.6-31.8); Chloride 101 mmol/L (96-109); Glucose 283 mg/dL (70-110); Potassium 4.9 mmol/L (3.5-5.5); Sodium 141 mmol/L (135-145); Total Bilirubin 0.8 mg/dL (0.3-1.2); Total Protein 7.6 g/dL (6.2-8.2)
--- NOTE | 2023-07-03 19:22 | US ---
EXAMINATION TYPE: US abdomen limited DATE OF EXAM: 07/03/2023 COMPARISON: NONE CLINICAL INDICATION: Male, 62 years old with history of K74.60 CIRRHOSIS OF LIVER; cirrhosis TECHNIQUE: Multiple sonographic images of the right upper quadrant are obtained. FINDINGS: EXAM MEASUREMENTS: Liver Length: 15.8 cm Gallbladder Wall: .2 cm CBD: .5 cm Right Kidney: 9.8 x 4.4 x 5.4 cm Pancreas: Suboptimal visualization of the pancreatic tail due to shadowing from bowel gas. Liver: Mildly increased echogenicity and heterogeneity there is some images suggest slight contour no dularity. No focal lesion seen. Gallbladder: No stones seen Evidence for sonographic Tena's sign: No CBD: wnl Right Kidney: No hydronephrosis or masses seen IMPRESSION: 1. Some images of the liver show slight contour irregularity with echogenic and heterogeneous appeara nce in keeping with reported history of cirrhosis. No sonographic evidence for hepatoma. 2. No gallstones or biliary ductal dilatation.
== END | disposition home or self-care (01) ==
LOC: RADUSWWP 07:56
PROVIDERS: ATTEND Internal Medicine Gastroenterology
DX: K74.60 Unspecified cirrhosis of liver (principal)
CPT/HCPCS: 36415; 76705; 80053; 82105; 85025

== ENCOUNTER → 2023-09-26 | Outpatient (CLI) | payer MEDICARE ==
--- NOTE | 2023-09-26 11:43 | XR ---
EXAMINATION TYPE: XR chest 2V DATE OF EXAM: 09/26/2023 COMPARISON: 06/21/2021 HISTORY: 62-year-old male R05.8, other specified cough TECHNIQUE: Frontal and lateral views FINDINGS: Heart normal size. Aorta and pulmonary vasculature within normal limits. Mild interstitial prominence and mild peribronchial cuffing is unchanged. Posterior lumbar fusion hardware. No consolidation or p leural effusion. IMPRESSION: Chronic changes, possible underlying bronchitis or asthma. No focal infiltrate.
== END | disposition home or self-care (01) ==
LOC: RADXRMAIN 10:53
PROVIDERS: ATTEND Family Medicine
DX: R05.8 Other specified cough (principal)
CPT/HCPCS: 71046

== ENCOUNTER 2024-01-24 06:52 | Day surgery (SDC) | payer MEDICARE ==
[2024-01-22 14:57] VITALS: BMI 33.6
[2024-01-24 07:26] VITALS: TEMP 97.1
[2024-01-24] MEDS: IV FLUID CONTINUATION 1,000 ML IV ONE ×2 (07:34→07:35)
[2024-01-24] MEDS: LACTATED RINGERS 1,000 ML IV SCH (07:35)
[2024-01-24 07:39] LABS: Glucose,Whole Blood 136 mg/dL (70-110)
[2024-01-24] MEDS ORDERED: PROPOFOL 10 MG/ML 20 ML VIAL IV ONE (08:06)
[2024-01-24] MEDS ORDERED: LIDOCAINE 1% INJ 10MG/ML (20 ML MDV) ONE (08:06)
--- NOTE | 2024-01-24 08:28 | P.PCN ---
Date of Procedure: 01/24/24 Procedure(s) Performed: BRIEF HISTORY: Patient is a cibpudhud-ewlw-eqq pleasant white male scheduled for an elective colonoscopy as a part of follow-up of large colon polyp that was noted on recent colonoscopy in January 2023. It revealed a 3 cm broad-based transverse colon polyp that was removed completely followed by Endo Clip placement. Labs revealed tubular adenoma PROCEDURE PERFORMED: Colonoscopy. PREOPERATIVE DIAGNOSIS: Follow-up large transverse colon polyp on colonoscopy January 2023. IV sedation per Anesthesia. PROCEDURE: After informed consent was obtained, the patient, was brought into the endoscopy unit. IV sedation was administered by Anesthesia under continuous monitoring. Digital rectal examination was normal. Initially the Olympus CF-160 flexible video colonoscope was then inserted in the rectum, gradually advanced into the cecum without any difficulty. Careful examination was performed as the scope was gradually being withdrawn. Ileocecal valve and the appendiceal orifice were visualized and appeared normal. Prep was excellent. Mucosa of the cecum, ascending colon appeared normal no residual polyp noted in the transverse colon. Rest of the, transverse colon, descending colon, sigmoid colon, and rectum appeared normal. Retroflexion was performed in the rectum and no lesions were seen. The patient tolerated the procedure well. IMPRESSION: Normal-appearing colon from rectum to cecum with no evidence of colorectal neoplasia. RECOMMENDATIONS: Findings of this examination were discussed with the patient as well as some his family. He was advised have repeat colonoscopy in 5 years because of the prior history of colon polyps.
[2024-01-24 09:04] VITALS: BP 123/85; PULSE 70; RESP 18
== END 2024-01-24 09:18 | disposition home or self-care (01) ==
LOC: ORWHC2ENDO 06:52
PROVIDERS: ATTEND Internal Medicine Gastroenterology
DX: Z86.010 Personal history of colon polyps
CPT/HCPCS: 45378

== ENCOUNTER → 2024-02-06 | Outpatient (CLI) | payer MEDICARE ==
[2024-02-06 10:40] LABS: ALT 25 U/L (10-49); AST 35 U/L (14-35); Albumin 4.6 g/dL (3.8-4.9); Albumin/Globulin Ratio 1.59 Ratio (1.60-3.17); Alkaline Phosphatase 86 U/L (41-126); Blood Urea Nitrogen 15.6 mg/dL (9.0-27.0); Calcium 9.2 mg/dL (8.7-10.3); Carbon Dioxide 28.2 mmol/L (21.6-31.8); Chloride 101 mmol/L (96-109); Globulin 2.9 g/dL (1.6-3.3); Glucose 134 mg/dL (70-110); Potassium 4.6 mmol/L (3.5-5.5); Sodium 140 mmol/L (135-145); Total Bilirubin 0.7 mg/dL (0.3-1.2); Total Protein 7.5 g/dL (6.2-8.2)
[2024-02-06 11:22] LABS: Basophils # (A) 0.06 X 10*3/uL (0.00-0.10); Eosinophils # (A) 0.26 X 10*3/uL (0.04-0.35); Eosinophils % (A) 4.1 %; HCT 40.7 % (39.6-50.0); HGB 13.8 g/dL (13.0-17.0); Lymphocytes # (A) 1.17 X 10*3/uL (0.90-5.00); Lymphocytes % (A) 18.7 %; MCH 32.2 pg (27.0-32.0); MCHC 33.9 g/dL (32.0-37.0); MCV 95.1 FL (80.0-97.0); Mean Platelet Volume 11.3 FL (9.5-12.2); NRBC Per 100 WBC 0 X 10*3/uL (0.00-0.01); Neutrophils # (A) 4.23 X 10*3/uL (1.80-7.70); Neutrophils % (A) 67.4 %; Platelet Count 164 X 10*3/uL (140-440); RBC 4.28 X 10*6/uL (4.40-5.60); RDW 13.4 % (11.5-14.5); WBC 6.27 X 10*3/uL (4.50-10.00)
== END | disposition home or self-care (01) ==
LOC: LABWHC1 07:10
PROVIDERS: ATTEND Internal Medicine Gastroenterology
DX: K74.60 Unspecified cirrhosis of liver (principal)
CPT/HCPCS: 36415; 80053; 82105; 85025

== ENCOUNTER → 2024-02-06 | Outpatient (CLI) | payer MEDICARE ==
--- NOTE | 2024-02-08 08:51 | US ---
EXAMINATION TYPE: US abdomen limited DATE OF EXAM: 02/06/2024 COMPARISON: Multiple, most recent 07/03/2023 CLINICAL INDICATION: Male, 63 years old with history of K74.60 UNSPECIFIED CIRRHOSIS OF LIVER; Patien t denies any changes from prior TECHNIQUE: Grayscale and color Doppler imaging of the right upper quadrant was performed. FINDINGS: EXAM MEASUREMENTS: Liver Length: 14.7 cm Gallbladder Wall: 0.1 cm CBD: 0.3 cm Right Kidney: 10.9 x 4.9 x 6.6 cm COMPUTER AIDED DESIGN TECHNICIAN NOTES: Pancreas: wnl Liver: Nodular and heterogenous, no suspicious masses dilated ducts or cysts. Gallbladder: wnl Evidence for sonographic Tena's sign: No CBD: wnl Right Kidney: wnl IMPRESSION: Hepatic cirrhosis without suspicious mass [facility], , 02/08/2024 8:49 AM
== END ==
LOC: RADUSWWP 07:05
PROVIDERS: ATTEND Internal Medicine Gastroenterology
DX: K74.60 Unspecified cirrhosis of liver (principal)
CPT/HCPCS: 76705

== ENCOUNTER → 2024-07-04 | Outpatient (CLI) | payer MEDICARE ==
[2024-07-04 11:38] VITALS: BP 136/82; PULSE 78; RESP 16; TEMP 97.6
--- NOTE | 2024-07-04 12:24 | P.SLEEP ---
History of Present Illness DATE: 07/04/2024 CONSULTATION/NEW PATIENT EVALUATION HISTORY OF PRESENT ILLNESS/SLEEP-WAKE EVALUATION: 63-year-old gentleman had b een evaluated in the sleep center for obstructive sleep apnea hypopnea syndrome. I saw patient in our sleep center on 02/22/2018. Patient continued to use his CPAP equipment every night. Recently his CPAP unit developed some problems, become noisy. I checked CPAP unit. Range of the pressure 6-13, average 11.1 cm of water. Usage 100% of nights, average 8.8 hours per night. Leak is increased to 35 L/min. Apnea hypopnea index is 1.3, which is normal. SLEEP SCHEDULE: Usually sleep schedule from midnight until 9 AM. FALLING ASLEEP: Sometimes there is difficulties with falling asleep, although no TV in bedroom. DURING SLEEP: Patient usually sleeps on the back position. No snoring with CPAP, no episodes of stop breathing during the sleep with CPAP. No history of hypnogogical hallucinations, sleep paralysis, or cataplexy. DURING THE DAY/WAKE STATE: []. [place] sleepiness scale is 7. Patient does not take naps. PAST MEDICAL HISTORY: Diabetes mellitus, depression, back problems, kidney stones. PAST SURGICAL HISTORY: Surgical treatment of kidney stones, bilateral surgery for carpal tunnel syndrome. MEDICATIONS: Have been reviewed, please see below. SOCIAL HISTORY: Please see below. FAMILY HISTORY: Please see below. REVIEW OF SYSTEMS: No snoring on CPAP. No fevers. No double vision. No recent chest pain. No shortness of breath. No abdominal pain. No bleeding episodes. No blood in urine. No seizure episodes. PHYSICAL EXAMINATION: GENERAL: A pleasant patient without any distress. VITAL SIGNS: Please see below, weight 213 pounds, BMI 33.6. HEENT: PERRLA, EOMI. Evaluation of oropharynx showed tongue protrudes midline, low position of soft palate Mallampati 4. NECK: Supple. No JVD. Thyroid is not palpable. 17.5 inches in circumference. LUNGS: Clear to percussion and to auscultation. Good air exchange. No wheezing or rhonchi. HEART: S1, S2 regular. No murmurs, gallops or rubs. ABDOMEN: Soft and nontender. Bowel sounds are present. No organomegaly appreciated. EXTREMITIES: No clubbing or cyanosis. BABY STROLLER RENTAL CLERK: Awake, alert, and oriented x3. Cranial nerves 2 to 7 intact. There is no fasciculation or atrophy noted. No focal deficits observed. ASSESSMENT: 1. Obstructive sleep apnea hypopnea syndrome for many years patient continued to use his CPAP equipment every night. No snoring on CPAP, normal apnea hypopnea index reading from the machine remain low position of soft palate Mallampati 4, wide neck 17.5 inches in circumference. CPAP unit is old and noisy. 2. Diabetes mellitus. 3. History of depression. 4. History of, status post back surgery. 5 history of kidney stones, status post surgical treatment. 6 . Status post bilateral surgical treatment for carpal tunnel syndrome. 7. Mild obesity BMI 33.6, patient lost 25 pounds comparing with visit in 2018. PLAN: 1. Prescription to replace CPAP unit. 2. Patient will continue to use CPAP equipment every night for the whole night. 3. Preferable position during sleep on the side. 4. No driving if patient feels any sleepiness. Patient is aware of civil and criminal liability for unsafe driving. 5. Sleep hygiene with regular sleep time for at least 7.5-8 hours. 6. Watching weight. 7. Follow-up visit in 31-90 days after patient will receive new CPAP unit to check compliance with treatment and [place] adjustments related to mask fitting pressure and humidification. Thank you very much for allowing me to participate in management of your patient. Sincerely, Jesús Garcia MD, PhD, FAASM. Diplomat of [place] [employer], Sleep Medicine Board by [place] [employer] [place] [employer] Mortgage Field Inspector of [facility] [place] cc: Franki Garvey MD, Rosalie Francis MD Past Medical History Past Medical History: Diabetes Mellitus, Hearing Disorder / Deafness, Liver Disease, Musculoskeletal Disorder, Skin Disorder, Sleep Apnea/CPAP/BIPAP Additional Past Medical History / Comment(s): NIDDM type II, DDD, spinal stenosis, chronic low back pain, numbness/tingling L foot, gastritis, benign col on polyps, diverticular disease, past + stool occult blood, nephrolithiasis, ERNESTO with Cpap use, eczema, past Russo's palsey, HX PANCREATITIS History of Any Multi-Drug Resistant Organisms: None Reported Past Surgical History: Back Surgery, Orthopedic Surgery Additional Past Surgical History / Comment(s): Posterior lumbar decompression, fusion L2-3-4, L4-L5,transforaminal lumbar interbody fusion, lithotripsy, BILAT CTR, RT 4TH TRIGGER FINGER RELEASE, 3 trigger fingers released on left hand, Colonoscopy, EGD, SPINAL INJECTIONS., PAIN CLINIC PROCEDURES, Past Anesthesia/Blood Transfusion Reactions: Previous Problems w/ Anesthesia Additional Past Anesthesia/Blood Transfusion Reaction / Comment(s): IV Rx very painful in arm w/ last colonoscopy 10/2019. Past Psychological History: Anxiety, Depression Additional Psychological History / Comment(s): Pt resides with his spouse. He is independent. Smoking Status: Current every day smoker Past Alcohol Use History: None Reported Additional Past Alcohol Use History / Comment(s): STARTED SMOKING AT AGE 17 - smokes 1/2-1 ppd Past Drug Use History: Marijuana Additional Drug Use History / Comment(s): USES MARIJUANA FOR PAIN-INSTRUCTED TO REFRAIN FROM USE FOR AT LEAST 24 HOURS PRIOR TO PROCEDURE - Past Family History Father Additional Family Medical History / Comment(s): AROUND AGE 70 UNK HX Mother Family Medical History: Cancer, Osteoarthritis (OA) Additional Family Medical History / Comment(s): SKIN CANCER MOM IS 87 YEARS OLD Medications and Allergies Home Medications Medication Instructions Recorded Confirmed Type lisinopriL [Zestril] 5 mg PO DAILY 11/13/19 07/04/24 History Pantoprazole Sodium [Protonix] 40 mg PO DAILY #30 tablet. 09/06/20 07/04/24 Rx DULoxetine HCL [Cymbalta] 60 mg PO DAILY 06/21/21 07/04/24 History Loratadine [Claritin] 10 mg PO HS 07/26/22 07/04/24 History metFORMIN HCL [Glucophage] 500 mg PO BID 07/26/22 07/04/24 History Sildenafil Citrate 50 mg PO DIRECTED PRN 07/04/24 07/04/24 History Allergies Allergy/AdvReac Type Severity Reaction Status Date / Time morphine AdvReac Nausea & Verified 01/24/24 07:23 Vomiting Physical Exam Vitals: Vital Signs Temp Pulse Resp BP Pulse Ox 07/04/24 11:34 97.6 F 78 16 136/82 95 Intake and Output 07/03/24 07/04/24 07/04/24 22:59 06:59 14:59 Other: Weight 96.615 kg Sleep Note - Sleep Data ESS Total: 7 - Sleep Note Sleep Note: Temperature: 97.6 F Pulse Rate: 78 Respiratory Rate: 16 Blood Pressure: 136/82 SpO2: 95 Height: 5 ft 6.7 in Weight: 96.615 kg BMI: Neck Circumference: 17.5
== END ==
LOC: 3 N SLEEP 11:14
PROVIDERS: ATTEND Internal Medicine
DX: E11.9 Type 2 diabetes mellitus without complications (principal); G47.33 Obstructive sleep apnea (adult) (pediatric); E66.9 Obesity, unspecified; Z99.89 Dependence on other enabling machines and devices; Z86.59 Personal history of other mental and behavioral disorders; Z98.890 Other specified postprocedural states; Z87.442 Personal history of urinary calculi; Z68.33 Body mass index [BMI] 33.0-33.9, adult; F12.90 Cannabis use, unspecified, uncomplicated; F17.210 Nicotine dependence, cigarettes, uncomplicated; Z88.5 Allergy status to narcotic agent
CPT/HCPCS: 99211

== ENCOUNTER → 2024-07-29 | Outpatient (CLI) | payer MEDICARE ==
--- NOTE | 2024-07-29 08:43 | US ---
EXAMINATION TYPE: US abdomen limited DATE OF EXAM: 07/29/2024 COMPARISON: , 07/03/23 CLINICAL INDICATION: Male, 63 years old with history of Limited-Liver; K74.60 Unspecified cirrhosis o f sharon; cirrhosis TECHNIQUE: Grayscale and color Doppler imaging of the right upper quadrant was performed. FINDINGS: EXAM MEASUREMENTS: Liver Length: 14.9 cm Gallbladder Wall: 0.19 cm CBD: 0.31 cm Right Kidney: 11.1 x 5.8 x 4.5 cm RETAIL BEAUTY SPECIALIST NOTES: Pancreas: tail obscured by overlying bowel gas Liver: heterogeneous, There is a lobular appearance at the jonathan hepatis, ?nodularity. Gallbladder: wnl Evidence for sonographic Tena's sign: No CBD: wnl Right Kidney: wnl Heterogeneous hyperechoic appearance of liver. This limits evaluation for underlying masses. No ascit es or biliary dilatation. IMPRESSION: Heterogeneous hyperechoic appearance of liver consistent with known hepatocellular disease is redemon strated. No ascites or biliary dilatation. No significant change from most recent prior ultrasound. [facility], , 07/29/2024 8:41 AM
[2024-07-29 10:20] LABS: Basophils # (A) 0.05 X 10*3/uL (0.00-0.10); Basophils % (A) 0.9 %; Eosinophils # (A) 0.26 X 10*3/uL (0.04-0.35); Eosinophils % (A) 4.4 %; HCT 39.2 % (39.6-50.0); HGB 12.8 g/dL (13.0-17.0); Lymphocytes # (A) 1.33 X 10*3/uL (0.90-5.00); Lymphocytes % (A) 22.7 %; MCH 30.9 pg (27.0-32.0); MCHC 32.7 g/dL (32.0-37.0); MCV 94.7 FL (80.0-97.0); Mean Platelet Volume 11.2 FL (9.5-12.2); Monocytes # (A) 0.65 X 10*3/uL (0.20-1.00); Monocytes % (A) 11.1 %; NRBC Per 100 WBC 0 X 10*3/uL (0.00-0.01); Neutrophils # (A) 3.54 X 10*3/uL (1.80-7.70); Neutrophils % (A) 60.6 %; Platelet Count 155 X 10*3/uL (140-440); RBC 4.14 X 10*6/uL (4.40-5.60); RDW 13.6 % (11.5-14.5); WBC 5.85 X 10*3/uL (4.50-10.00)
[2024-07-29 11:42] LABS: ALT 30 U/L (10-49); AST 35 U/L (14-35); Albumin 4.2 g/dL (3.8-4.9); Albumin/Globulin Ratio 1.56 Ratio (1.60-3.17); Alkaline Phosphatase 95 U/L (41-126); Blood Urea Nitrogen 12.4 mg/dL (9.0-27.0); Calcium 9.2 mg/dL (8.7-10.3); Carbon Dioxide 26.8 mmol/L (21.6-31.8); Chloride 101 mmol/L (96-109); Globulin 2.7 g/dL (1.6-3.3); Glucose 137 mg/dL (70-110); Potassium 4.1 mmol/L (3.5-5.5); Sodium 137 mmol/L (135-145); Total Bilirubin 0.3 mg/dL (0.3-1.2); Total Protein 6.9 g/dL (6.2-8.2)
== END | disposition home or self-care (01) ==
LOC: RADUSWWP 07:41
PROVIDERS: ATTEND Internal Medicine Gastroenterology
DX: K74.60 Unspecified cirrhosis of liver (principal)
CPT/HCPCS: 76705; 80053; 82105; 85025

== ENCOUNTER → 2024-09-12 | Outpatient (CLI) | payer MEDICARE ==
--- NOTE | 2024-09-12 10:37 | CTL ---
EXAMINATION TYPE: CT Low Dose Lung DATE OF EXAM: 09/12/2024 9:54 AM COMPARISON: 06/21/2021 CLINICAL INDICATION: Male, 63 years old with history of F17.210 nicotine dependence, Current smoker 1 ppd x 46 years, PETE, History of tobacco use. TECHNIQUE: Low dose computed tomography scan was performed through the chest at 1 mm thick sections a nd reconstructed images in multiple planes at 1 mm and [address] DLP: 101.4 mGycm, CT CTDI: 2.6 mGy, Automated exposure control for dose reduction was used. CT DIAGNOSTIC QUALITY: Satisfactory FINDINGS: Heart normal size without pericardial effusion. LAD coronary artery calcifications are present. Ectatic ascending aorta 3.8 cm. Ectatic upper descending thoracic aorta 3.1 cm. Conventional arch ves abel branching anatomy. No thoracic lymphadenopathy by CT size criteria. There is mild diffuse bronchial wall thickening. Some focal groundglass has developed anterior left midlung. Other smaller, more subtle areas of groun dglass density present in 2021 appear to have resolved. Minimal emphysematous change. 6 mm anterior right midlung pulmonary nodule, axial image 166 is unchanged. 4 mm lateral left lower lobe pulmonary nodule, axial image 25 is unchanged. Tiny 3 mm left upper lobe pulmonary nodule, axial image 49, not well seen previously. Tiny hiatal hernia. Liver shows nodular contour compatible with underlying cirrhosis. Bones: T10 limbus vertebra. Mild degenerative disc disease mid to lower thoracic spine. Partially vis ualized posterior lumbar fusion hardware. IMPRESSION: 1. LungRADS Category 2 (benign appearance or behavior, <1% chance of malignancy); a couple stable pul monary nodules measuring up to 6 mm including a tiny new 3 mm pulmonary nodule. 2. COPD with mild emphysema. 3. Some focal groundglass has developed at the anterior left mid lung. Correlate for a small infectio us/inflammatory focus. Other scattered smaller areas of groundglass seen back in 2021 have cleared. 4. Tiny hiatal hernia. Known cirrhosis. CT LUNG RAD AND CT CHEST RECOMMENDATION: Lung-Rad 2 Benign Appearance or Behavior: Continue annual sc reening with LDCT in 12 months. S Modifier (other clinically significant findings): S, appropriate clinical management of patient's k nown cirrhosis. [facility], Workstation: [email or web address], 09/12/2024 10:35 AM
== END | disposition home or self-care (01) ==
LOC: RADCTMAIN 09:21
PROVIDERS: ATTEND Family Medicine
DX: Z12.2 Encounter for screening for malignant neoplasm of respiratory organs (principal); F17.210 Nicotine dependence, cigarettes, uncomplicated; J44.9 Chronic obstructive pulmonary disease, unspecified; K44.9 Diaphragmatic hernia without obstruction or gangrene; K74.60 Unspecified cirrhosis of liver
CPT/HCPCS: 71271

== ENCOUNTER → 2024-10-02 | Outpatient (CLI) | payer MEDICARE ==
[2024-10-02 11:04] VITALS: BP 115/72; PULSE 80; RESP 16; TEMP 97.8
--- NOTE | 2024-10-02 11:31 | P.PROGSL ---
Subjective DATE: 10/02/2024 FOLLOW UP VISIT. Patient with obstructive sleep apnea hypopnea syndrome return to sleep center for follow-up visit. Information from previous visit have been reviewed. This is first visit after patient received new CPAP unit Patient is using PAP equipment every night for the whole night, getting PAP supplies in time. The patient does not have significant problems with the mask, PAP unit and humidification. [place] sleepiness scale is 2, which is perfect. I checked information from PAP unit. PAP unit pressure, average 10.9 cm H2O. Usage is 100% for more then 4 hours, average 8.75 hours per night. Leak is slightly increased to 33.0 l/m, patient has das and mustache. Apnea Hypopnea Index is 1.0, which is perfect. MEDICATIONS have been reviewed, please see below. During physical exam: GENERAL: A pleasant patient without any distress. VITAL SIGNS: Please see below, weight is 203 lbs. HEENT: PERRLA, EOMI.low position of soft palate, Mallapati 4 . NECK: Supple. No JVD. LUNGS: Clear to percussion and to auscultation. Good air exchange. No wheezing or rhonchi. HEART: S1, S2 regular. ABDOMEN: Soft and nontender.[] EXTREMITIES: No clubbing or cyanosis. CARRIER OPERATOR: Awake, alert, and oriented x3. No focal deficit. Impressions: 1. Obstructive sleep apnea-hypopnea syndrome. Patient demonstrated great compliance with treatment, benefiting from treatment. 2. Diabetes mellitus, hemoglobin A1c according to patient 6.3. 3. History of depression. 4. Status post back surgery. 5. History of kidney stones, status post surgical treatment. 6. Status post bilateral surgical treatment for carpal tunnel syndrome. 7. Very mild obesity, patient lost 10 pounds comparing with previous visit. Plan: 1. Continue using PAP equipment every night for the whole night. 2. Sleep hygiene with regular time in bed for at least 7.5-8 hours 3. PAP unit should stay lower then position of the head. 4. Advised patient to remove all remaining water from humidifier canister daily and make it dry after each usage. Refill canister with fresh distilled water before each usage. 5. Watching weight. 6. Precautions related to driving. No driving if feel any sleepiness. 7. I will maintain prescription for PAP supplies including mask, tube, filters. 8. Follow up visit in 8 months or earlier if patient has any problems. Thank you very much for allowing me to participate in the management of your patient. Jesús Garcia MD, PhD, FAASM. Diplomat of [place] [employer], Sleep Medicine Board by [place] [employer] Keyboarding Clerk of [facility] [place] Objective - Vital Signs Vital Signs: Vital Signs Temp 97.8 F 10/02/24 11:03 Pulse 80 10/02/24 11:03 Resp 16 10/02/24 11:03 BP 115/72 10/02/24 11:03 Pulse Ox 98 10/02/24 11:03 FiO2 Intake & Output 10/01/24 10/02/24 10/02/24 18:59 06:59 18:59 Weight 92.079 kg Home Medications: Home Medications Medication Instructions Recorded Confirmed Type lisinopriL [Zestril] 5 mg PO DAILY 11/13/19 07/04/24 History Pantoprazole Sodium [Protonix] 40 mg PO DAILY #30 tablet. 09/06/20 07/04/24 Rx DULoxetine HCL [Cymbalta] 60 mg PO DAILY 06/21/21 07/04/24 History Loratadine [Claritin] 10 mg PO HS 07/26/22 07/04/24 History metFORMIN HCL [Glucophage] 500 mg PO BID 07/26/22 07/04/24 History Sildenafil Citrate 50 mg PO DIRECTED PRN 07/04/24 07/04/24 History
== END ==
LOC: 3 N SLEEP 10:59
PROVIDERS: ATTEND Internal Medicine
DX: G47.33 Obstructive sleep apnea (adult) (pediatric) (principal); E11.9 Type 2 diabetes mellitus without complications; F32.A Depression, unspecified; E66.9 Obesity, unspecified; F12.90 Cannabis use, unspecified, uncomplicated; F17.200 Nicotine dependence, unspecified, uncomplicated; Z87.442 Personal history of urinary calculi; Z87.898 Personal history of other specified conditions; Z98.890 Other specified postprocedural states; Z88.5 Allergy status to narcotic agent; Z99.89 Dependence on other enabling machines and devices
CPT/HCPCS: 99212

== ENCOUNTER 2024-11-04 21:21 | Emergency (ER) | payer MEDICARE ==
[2024-11-04 21:35] VITALS: BP 144/80; PULSE 72; RESP 18; TEMP 97.9
[2024-11-04 22:26] LABS: Basophils # (A) 0.07 10*3/uL (0.00-0.10); Basophils % (A) 0.7 %; Eosinophils # (A) 0.31 10*3/uL (0.04-0.35); Eosinophils % (A) 3.0 %; HCT 39.6 % (39.6-50.0); HGB 13.8 g/dL (13.0-17.0); Lymphocytes # (A) 1.96 10*3/uL (0.90-5.00); Lymphocytes % (A) 19.2 %; MCH 32.5 pg (27.0-32.0); MCHC 34.8 g/dL (32.0-37.0); MCV 93.4 fL (80.0-97.0); Monocytes # (A) 0.91 10*3/uL (0.20-1.00); Monocytes % (A) 8.9 %; Neutrophils # (A) 6.92 10*3/uL (1.80-7.70); Neutrophils % (A) 67.8 %; Platelet Count 166 10*3/uL (140-440); RBC 4.24 10*6/uL (4.40-5.60); RDW 14.4 % (11.5-14.5); WBC 10.21 10*3/uL (4.50-10.00)
[2024-11-04 22:47] LABS: ALT 25 U/L (4-49); AST 36 U/L (17-59); African American GFR (CKD) >90 (>60 ml/min/1.73 sqM); Albumin 4.9 g/dL (3.5-5.0); Alkaline Phosphatase 68 U/L (38-126); Anion Gap 11 mmol/L; Blood Urea Nitrogen 13 mg/dL (9-20); Calcium 9.9 mg/dL (8.4-10.2); Carbon Dioxide 25 mmol/L (22-30); Chloride 104 mmol/L (98-107); Glucose 104 mg/dL (74-99); Non-African American GFR(CKD) >90 (>60 ml/min/1.73 sqM); Potassium 4.6 mmol/L (3.5-5.1); Sodium 140 mmol/L (137-145); Total Protein 7.9 g/dL (6.3-8.2)
--- NOTE | 2024-11-04 23:04 | ED ---
Abdominal Pain HPI - General Source: patient, RN notes reviewed Mode of arrival: ambulatory Limitations: no limitations <Venancio Duff - Last Filed: 11/04/24 23:04> <Robin Garcia - Last Filed: 11/14/24 21:53> - General Chief Complaint: Abdominal Pain Stated Complaint: Abd Pain Time Seen by Provider: 11/04/24 21:37 - History of Present Illness Initial Comments: Quick note: This is a 63-year-old male with history including DM, liver disease and diverticular disease presenting for abdominal pain (10/31) starting yesterday. Patient states pain is intermittent with associated nausea. Patient endorses history of similar symptoms. Denies pcvl-ggf-dawcbit medication use. Denies fever, chills, chest pain, dyspnea, vomiting, diarrhea, hematochezia, melena. Patient denies history of GERD, gastritis, PUD. (Venancio Duff) - Related Data Home Medications Medication Instructions Recorded Confirmed lisinopriL [Zestril] 5 mg PO DAILY 11/13/19 11/05/24 DULoxetine HCL [Cymbalta] 60 mg PO DAILY 06/21/21 11/05/24 Cetirizine HCl [Zyrtec] 10 mg PO HS 11/05/24 11/05/24 Previous Rx's Medication Instructions Recorded Pantoprazole Sodium [Protonix] 40 mg PO DAILY #30 tablet. 09/06/20 Allergies Allergy/AdvReac Type Severity Reaction Status Date / Time morphine AdvReac Nausea & Verified 11/05/24 15:51 Vomiting Review of Systems ROS Other: All systems not noted in ROS Statement are negative. <Venancio Duff - Last Filed: 11/04/24 23:04> ROS Other: All systems not noted in ROS Statement are negative. <Robin Garcia - Last Filed: 11/14/24 21:53> ROS Statement: Those systems with pertinent positive or pertinent negative responses have been documented in the HPI. Past Medical History Past Medical History: Diabetes Mellitus, Hearing Disorder / Deafness, Liver Disease, Musculoskeletal Disorder, Skin Disorder, Sleep Apnea/CPAP/BIPAP Additional Past Medical History / Comment(s): NIDDM type II, DDD, spinal stenosis, chronic low back pain, numbness/tingling L foot, gastritis, benign colon polyps, diverticular disease, past + stool occult blood, nephrolithiasis, ERNESTO with Cpap use, eczema, past Russo's palsey, HX PANCREATITIS History of Any Multi-Drug Resistant Organisms: None Reported Past Surgical History: Back Surgery, Orthopedic Surgery Additional Past Surgical History / Comment(s): Posterior lumbar decompression, fusion L2-3-4, L4-L5,transforaminal lumbar interbody fusion, lithotripsy, BILAT CTR, RT 4TH TRIGGER FINGER RELEASE, 3 trigger fingers released on left hand, Colonoscopy, EGD, SPINAL INJECTIONS., PAIN CLINIC PROCEDURES, Past Anesthesia/Blood Transfusion Reactions: Previous Problems w/ Anesthesia Additional Past Anesthesia/Blood Transfusion Reaction / Comment(s): IV Rx very painful in arm w/ last colonoscopy 10/2019. Past Psychological History: Anxiety, Depression Smoking Status: Current every day smoker Past Alcohol Use History: None Reported Past Drug Use History: Marijuana - Past Family History Father Additional Family Medical History / Comment(s): AROUND AGE 70 UNK HX Mother Family Medical History: Cancer, Osteoarthritis (OA) Additional Family Medical History / Comment(s): SKIN CANCER MOM IS 87 YEARS OLD <Venancio Duff - Last Filed: 11/04/24 23:04> General Exam Limitations: no limitations <Venancio Duff - Last Filed: 11/04/24 23:04> - General Exam Comments Initial Comments: Visual Physical Exam Vital signs reviewed General: Well-appearing, nontoxic, no acute distress. Head: Normocephalic, atraumatic Eyes: PERRLA, EOMI ENT: Airway patent Chest: Nonlabored breathing Skin: No visual rash, normal skin tone Neuro: Alert and oriented 3 Musculoskeletal: No gross abnormalities (Venancio Duff) Course Vital Signs 11/04/24 21:32 Temperature 97.9 F Pulse Rate 72 Respiratory 18 Rate Blood Pressure 144/80 O2 Sat by Pulse 99 Oximetry Medical Decision Making - Lab Data Result diagrams: 11/04/24 21:43 <Venancio Duff - Last Filed: 11/04/24 23:04> - Lab Data Result diagrams: 11/04/24 21:43 11/04/24 21:43 <Robin Garcia - Last Filed: 11/14/24 21:53> - Medical Decision Making I completed the quick note portion of this chart signed KATHIA Lazo (Venancio Duff) - Lab Data Lab Results 11/04/24 11/04/24 11/04/24 Range/Units 21:43 21:43 21:43 WBC 10.21 H (4.50-10.00) 10*3/uL RBC 4.24 L (4.40-5.60) 10*6/uL Hgb 13.8 (13.0-17.0) g/dL Hct 39.6 (39.6-50.0) % MCV 93.4 (80.0-97.0) fL MCH 32.5 H (27.0-32.0) pg MCHC 34.8 (32.0-37.0) g/dL Plt Count 166 (140-440) 10*3/uL MPV 12.1 (9.5-12.2) fL Immature Gran % (Auto) 0.4 % Neutrophils % 67.8 % Lymphocytes % 19.2 % Monocytes % 8.9 % Eosinophils % 3.0 % Basophils % 0.7 % Immature Gran # 0.04 (0.00-0.04) 10*3/uL Neutrophils # 6.92 (1.80-7.70) 10*3/uL Lymphocytes # 1.96 (0.90-5.00) 10*3/uL Monocytes # 0.91 (0.20-1.00) 10*3/uL Eosinophils # 0.31 (0.04-0.35) 10*3/uL Basophils # 0.07 (0.00-0.10) 10*3/uL Sodium 140 (137-145) mmol/L Potassium 4.6 (3.5-5.1) mmol/L Chloride 104 (98-107) mmol/L Carbon Dioxide 25 (22-30) mmol/L Anion Gap 11 mmol/L BUN 13 (9-20) mg/dL Creatinine 0.71 (0.66-1.25) mg/dL Est GFR (CKD-EPI)AfAm >90 (>60 ml/min/1.73 sqM) Est GFR (CKD-EPI)NonAf >90 (>60 ml/min/1.73 sqM) Glucose 104 H (74-99) mg/dL Plasma Lactic Acid Jeremie 1.3 (0.7-2.0) mmol/L Calcium 9.9 (8.4-10.2) mg/dL Total Bilirubin 0.7 (0.2-1.3) mg/dL AST 36 (17-59) U/L ALT 25 (4-49) U/L Alkaline Phosphatase 68 (38-126) U/L Total Protein 7.9 (6.3-8.2) g/dL Albumin 4.9 (3.5-5.0) g/dL Amylase 635 H* (30-110) U/L Lipase 50086 H (23-300) U/L Disposition <Venancio Duff - Last Filed: 11/04/24 23:04> <Robin Garcia - Last Filed: 11/14/24 21:53> Clinical Impression: Abdominal pain Disposition: LEFT AGAINST MEDICAL ADVICE Referrals: Harvey Berger Jr, [Primary Care Provider] - 1-2 days
[2024-11-04 23:18] LABS: Amylase 635 U/L (30-110)
[2024-11-04 23:25] LABS: Lipase 10715 U/L (23-300)
== END 2024-11-04 23:15 | disposition left against medical advice (07) ==
LOC: EC 21:21
DX: R10.9 Unspecified abdominal pain (principal); F17.200 Nicotine dependence, unspecified, uncomplicated; Z88.5 Allergy status to narcotic agent; Z53.29 Procedure and treatment not carried out because of patient's decision for other reasons
CPT/HCPCS: 36415; 80053; 82150; 83605; 83690; 85025; 99283

== ENCOUNTER 2024-11-05 12:04 | Observation (INO) | payer MEDICARE ==
[2024-11-05 12:07] VITALS: TEMP 97.6
[2024-11-05] MEDS: ONDANSETRON 4 MG/2 ML VIAL IVP STA (13:20)
[2024-11-05] MEDS: SODIUM CHLORIDE 0.9% 1,000 ML IV SCH ×2 (13:20→16:28)
[2024-11-05] MEDS: HYDROmorphone 1 MG/ML 1 ML SYRINGE IVP STA ×2 (13:21→14:38)
[2024-11-05] MEDS: KETOROLAC 15 MG/ML 1 ML VIAL IVP STA (13:22)
[2024-11-05 13:34] LABS: Basophils # (A) 0.04 10*3/uL (0.00-0.10); Basophils % (A) 0.5 %; Eosinophils # (A) 0.19 10*3/uL (0.04-0.35); Eosinophils % (A) 2.4 %; HCT 40.7 % (39.6-50.0); HGB 14.2 g/dL (13.0-17.0); Lymphocytes # (A) 1.52 10*3/uL (0.90-5.00); Lymphocytes % (A) 18.9 %; MCH 32.1 pg (27.0-32.0); MCHC 34.9 g/dL (32.0-37.0); MCV 91.9 fL (80.0-97.0); Monocytes # (A) 0.75 10*3/uL (0.20-1.00); Monocytes % (A) 9.3 %; Neutrophils # (A) 5.52 10*3/uL (1.80-7.70); Neutrophils % (A) 68.7 %; Platelet Count 166 10*3/uL (140-440); RBC 4.43 10*6/uL (4.40-5.60); RDW 14.4 % (11.5-14.5); WBC 8.04 10*3/uL (4.50-10.00)
[2024-11-05 13:46] LABS: ALT 24 U/L (4-49); AST 34 U/L (17-59); African American GFR (CKD) >90 (>60 ml/min/1.73 sqM); Albumin 4.9 g/dL (3.5-5.0); Alkaline Phosphatase 77 U/L (38-126); Anion Gap 12 mmol/L; Blood Urea Nitrogen 11 mg/dL (9-20); Calcium 10.2 mg/dL (8.4-10.2); Carbon Dioxide 24 mmol/L (22-30); Chloride 103 mmol/L (98-107); Glucose 115 mg/dL (74-99); Non-African American GFR(CKD) >90 (>60 ml/min/1.73 sqM); Potassium 4.7 mmol/L (3.5-5.1); Sodium 139 mmol/L (137-145); Total Protein 8.2 g/dL (6.3-8.2)
--- NOTE | 2024-11-05 13:46 | ED ---
Abdominal Pain HPI - General Chief Complaint: Abdominal Pain Stated Complaint: Abn labs Time Seen by Provider: 11/05/24 12:32 Source: patient, RN notes reviewed Mode of arrival: ambulatory Limitations: no limitations - History of Present Illness Initial Comments: 63-year-old male presents emergency department complaint of abdominal pain. Patient states has been having creasing abdominal pain the last few days. Patient presented the emergency department last night had laboratory studies drawn but left prior to results. Patient states he has had increased pain slight nausea patient has a history of pancreatitis but does not drink in over 14 years. Patient states that he had an admission few years ago for pancreatitis. Patient states his lipase was elevated on labs yesterday. Patient denies any fevers or chills no chest pain no shortness of breath no other complaints. - Related Data Home Medications Medication Instructions Recorded Confirmed lisinopriL [Zestril] 5 mg PO DAILY 11/13/19 07/04/24 DULoxetine HCL [Cymbalta] 60 mg PO DAILY 06/21/21 07/04/24 Loratadine [Claritin] 10 mg PO HS 07/26/22 07/04/24 metFORMIN HCL [Glucophage] 500 mg PO BID 07/26/22 07/04/24 Sildenafil Citrate 50 mg PO DIRECTED PRN 07/04/24 07/04/24 Previous Rx's Medication Instructions Recorded Pantoprazole Sodium [Protonix] 40 mg PO DAILY #30 tablet. 09/06/20 Allergies Allergy/AdvReac Type Severity Reaction Status Date / Time morphine AdvReac Nausea & Verified 11/05/24 12:07 Vomiting Review of Systems ROS Statement: Those systems with pertinent positive or pertinent negative responses have been documented in the HPI. ROS Other: All systems not noted in ROS Statement are negative. Past Medical History Past Medical History: Diabetes Mellitus, Hearing Disorder / Deafness, Liver Disease, Musculoskeletal Disorder, Skin Disorder, Sleep Apnea/CPAP/BIPAP Additional Past Medical History / Comment(s): NIDDM type II, DDD, spinal stenosis, chronic low back pain, numbness/tingling L foot, gastritis, benign colon polyps, diverticular disease, past + stool occult blood, nephrolithiasis, ERNESTO with Cpap use, eczema, past Russo's palsey, HX PANCREATITIS History of Any Multi-Drug Resistant Organisms: None Reported Past Surgical History: Back Surgery, Orthopedic Surgery Additional Past Surgical History / Comment(s): Posterior lumbar decompression, fusion L2-3-4, L4-L5,transforaminal lumbar interbody fusion, lithotripsy, BILAT CTR, RT 4TH TRIGGER FINGER RELEASE, 3 trigger fingers released on left hand, Colonoscopy, EGD, SPINAL INJECTIONS., PAIN CLINIC PROCEDURES, Past Anesthesia/Blood Transfusion Reactions: Previous Problems w/ Anesthesia Additional Past Anesthesia/Blood Transfusion Reaction / Comment(s): IV Rx very painful in arm w/ last colonoscopy 10/2019. Past Psychological History: Anxiety, Depression Smoking Status: Current every day smoker Past Alcohol Use History: None Reported Past Drug Use History: Marijuana - Past Family History Father Additional Family Medical History / Comment(s): AROUND AGE 70 UNK HX Mother Family Medical History: Cancer, Osteoarthritis (OA) Additional Family Medical History / Comment(s): SKIN CANCER MOM IS 87 YEARS OLD General Exam Limitations: no limitations General appearance: alert, in no apparent distress Head exam: Present: atraumatic, normocephalic, normal inspection Eye exam: Present: normal appearance, PERRL, EOMI. Absent: scleral icterus, conjunctival injection, periorbital swelling ENT exam: Present: normal exam, mucous membranes moist Neck exam: Present: normal inspection, full ROM. Absent: tenderness, meningismus, lymphadenopathy Respiratory exam: Present: normal lung sounds bilaterally. Absent: respiratory distress, wheezes, rales, rhonchi, stridor Cardiovascular Exam: Present: regular rate, normal rhythm, normal heart sounds. Absent: systolic murmur, diastolic murmur, rubs, gallop, clicks GI/Abdominal exam: Present: soft, tenderness, normal bowel sounds. Absent: distended, guarding, rebound, rigid Back exam: Absent: CVA tenderness (R), CVA tenderness (L) Neurological exam: Present: alert, oriented X3 Course Vital Signs 11/05/24 11/05/24 11/05/24 12:05 13:13 14:35 Temperature 97.6 F Pulse Rate 73 73 74 Respiratory 18 18 19 Rate Blood Pressure 138/84 129/87 116/72 O2 Sat by Pulse 99 96 98 Oximetry 11/05/24 15:33 Temperature Pulse Rate 68 Respiratory 19 Rate Blood Pressure 127/73 O2 Sat by Pulse 96 Oximetry Medical Decision Making - Medical Decision Making Was pt. sent in by a medical professional or institution (Dr., PA, LINE SERVICER, urgent care, hospital, or longterm...) When possible be specific @ -PCP Did you speak to anyone other than the patient for history (EMS, parent, family, police, friend...)? What history was obtained from this source @ -No Did you review nursing and triage notes (agree or disagree)? Why? @ -I reviewed and agree with nursing and triage notes Were old charts reviewed (outside hosp., previous admission, EMS record, old EKG, old radiological studies, urgent care reports/EKG's, longterm records)? Report findings @ -Reviewed CBC CMP amylase and lipase are showing elevated lipase over 5000 yesterday Differential Diagnosis (chest pain, altered mental status, abdominal pain women, abdominal pain men, vaginal bleeding, weakness, fever, dyspnea, syncope, headache, dizziness, GI bleed, back pain, seizure, CVA, palpatations, mental health, musculoskeletal)? @ -Differential Abdominal Pain Women: Appendicitis, Cholecystitis, diverticulosis, ischemic bowel, pancreatitis, hepatitis, UTI, gastroenteritis, AAA, incarcerated hernia, bowel obstruction, constipation, inflammatory bowel, hepatitis, peptic ulcer disease, splenic infarction, perforated viscus, vulvitis, ovarian torsion, PID, kidney stone, placenta abruption, this is not meant to be an all-inclusive list EKG interpreted by me (3pts min.). @ -none X-rays interpreted by me (1pt min.). @ -None done CT interpreted by me (1pt min.). @ -CT of the abdomen pelvis showing evidence of liver cirrhosis no acute process otherwise U/S interpreted by me (1pt. min.). @ -None done What testing was considered but not performed or refused? (CT, X-rays, U/S, labs)? Why? @ -None What meds were considered but not given or refused? Why? @ -None Did you discuss the management of the patient with other professionals (professionals i.e. ELIO Patel, LINE SERVICER, lab, RT, psych nurse, social problems specialist, semiconductor wafers etcher stripper, teacher, tactical deception plans officer, case repairer)? Give summary @ - for admission Was smoking cessation discussed for >3mins.? @ -No Was critical care preformed (if so, how long)? @ -No Were there social determinants of health that impacted care today? How? (Homelessness, low income, unemployed, alcoholism, drug addiction, transportation, low edu. Level, literacy, decrease access to med. care, custodial, rehab)? @ -No Was there de-escalation of care discussed even if they declined (Discuss DNR or withdrawal of care, Hospice)? DNR status @ -No What co-morbidities impacted this encounter? (DM, HTN, Smoking, COPD, CAD, Cancer, CVA, ARF, Chemo, Hep., AIDS, mental health diagnosis, sleep apnea, morbid obesity)? @ -None Was patient admitted / discharged? Hospital course, mention meds given and route, prescriptions, significant lab abnormalities, going to OR and other pertinent info. @ -Admitted patient found to have acute pancreatitis. Patient started on IV analgesics, IV fluids lipase will be trended Undiagnosed new problem with uncertain prognosis? @ -No Drug Therapy requiring intensive monitoring for toxicity (Heparin, Nitro, Insulin, Cardizem)? @ -No Were any procedures done? @ -No Diagnosis/symptom? @ -Acute pancreatitis Acute, or Chronic, or Acute on Chronic? @ -Acute Uncomplicated (without systemic symptoms) or Complicated (systemic symptoms)? @ -Complicated Side effects of treatment? @ -No Exacerbation, Progression, or Severe Exacerbation? @ -No Poses a threat to life or bodily function? How? (Chest pain, [place], [place], pneumonia, PE, COPD, DKA, ARF, appy, cholecystitis, CVA, Diverticulitis, Homicidal, Suicidal, threat to staff... and all critical care pts) @ -No - Lab Data Result diagrams: 11/05/24 13:18 11/05/24 13:18 Lab Results 11/05/24 11/05/24 11/05/24 Range/Units 13:18 13:18 13:18 WBC 8.04 (4.50-10.00) 10*3/uL RBC 4.43 (4.40-5.60) 10*6/uL Hgb 14.2 (13.0-17.0) g/dL Hct 40.7 (39.6-50.0) % MCV 91.9 (80.0-97.0) fL MCH 32.1 H (27.0-32.0) pg MCHC 34.9 (32.0-37.0) g/dL Plt Count 166 (140-440) 10*3/uL MPV 11.4 (9.5-12.2) fL Immature Gran % (Auto) 0.2 % Neutrophils % 68.7 % Lymphocytes % 18.9 % Monocytes % 9.3 % Eosinophils % 2.4 % Basophils % 0.5 % Immature Gran # 0.02 (0.00-0.04) 10*3/uL Neutrophils # 5.52 (1.80-7.70) 10*3/uL Lymphocytes # 1.52 (0.90-5.00) 10*3/uL Monocytes # 0.75 (0.20-1.00) 10*3/uL Eosinophils # 0.19 (0.04-0.35) 10*3/uL Basophils # 0.04 (0.00-0.10) 10*3/uL Sodium 139 (137-145) mmol/L Potassium 4.7 (3.5-5.1) mmol/L Chloride 103 (98-107) mmol/L Carbon Dioxide 24 (22-30) mmol/L Anion Gap 12 mmol/L BUN 11 (9-20) mg/dL Creatinine 0.57 L (0.66-1.25) mg/dL Est GFR (CKD-EPI)AfAm >90 (>60 ml/min/1.73 sqM) Est GFR (CKD-EPI)NonAf >90 (>60 ml/min/1.73 sqM) Glucose 115 H (74-99) mg/dL Plasma Lactic Acid Jeremie 1.8 (0.7-2.0) mmol/L Calcium 10.2 (8.4-10.2) mg/dL Total Bilirubin 1.0 (0.2-1.3) mg/dL AST 34 (17-59) U/L ALT 24 (4-49) U/L Alkaline Phosphatase 77 (38-126) U/L Total Protein 8.2 (6.3-8.2) g/dL Albumin 4.9 (3.5-5.0) g/dL Amylase 512 H* (30-110) U/L Lipase 4553 H (23-300) U/L Disposition Clinical Impression: Acute pancreatitis Disposition: ADMITTED IP TO THIS [facility] Condition: Fair Referrals: Harvey Berger Jr, [Primary Care Provider] - 1-2 days Time of Disposition: 15:43
[2024-11-05 14:02] LABS: Amylase 512 U/L (30-110)
[2024-11-05 14:11] LABS: Lipase 4553 U/L (23-300)
--- NOTE | 2024-11-05 15:25 | CT ---
EXAMINATION TYPE: CT abdomen pelvis w con DATE OF EXAM: 11/05/2024 COMPARISON: 07/26/2022 CLINICAL INDICATION: Male, 63 years old with history of abdominal pain; PHH, Abdominal pain unspecifi ed. Nausea. Pt states he has pancreatitis. TECHNIQUE: Performed without Oral Contrast and with IV Contrast, patient injected with 100 ml mL of Isovue 300. CT DLP: 1366.[address] CTDI: mGy Automated exposure control for dose reduction was used. FINDINGS: There is a stable 6 mm nodule in the right middle lobe. The gallbladder is normal without distention, wall thickening, pericholecystic fluid or gallstones. T here is no biliary ductal dilatation. The liver contour is lobulated consistent with cirrhosis. The spleen is borderline normal in size. Th ere is no adrenal or pancreatic mass.. There is no solid renal mass or hydronephrosis and there is homogeneous contrast enhancement of the r enal parenchyma. There is a nonobstructing 6 mm left renal calcification. The caliber the abdominal a gustavo is normal is no retroperitoneal adenopathy or hemorrhage. The bowel loops are normal in caliber and there is no evidence of dilatation or obstruction. No infla mmatory changes are identified in the bowel wall or mesentery. There is no free intraperitoneal air or fluid. No pelvic mass, free fluid, abscess or adenopathy. There is mild prostatic hypertrophy. There is spinal fusion from L2 through L5. IMPRESSION: 1. Cirrhotic liver. 2. Nonobstructing 6 mm left renal calcification. 3. No acute changes within the abdomen or pelvis. [facility], , 11/05/2024 3:23 PM
[2024-11-05] MEDS ORDERED: KETOROLAC 15 MG/ML 1 ML VIAL IVP PRN (15:39)
[2024-11-05] MEDS ORDERED: NALOXONE 0.4 MG/ML 1 ML VIAL IV PRN (15:39)
[2024-11-05] MEDS ORDERED: ONDANSETRON 4 MG/2 ML VIAL IVP PRN (15:39)
[2024-11-05] MEDS ORDERED: HYDROmorphone 1 MG/ML 1 ML SYRINGE IVP PRN (15:39)
[2024-11-05] MEDS: HYDROcodone/APAP 5-325MG 1 EACH TAB PO PRN (16:26)
[2024-11-05] MEDS: NICOTINE 14MG/24HR PATCH TRANSDERM STA (16:27)
[2024-11-05] MEDS: HYDROmorphone 0.5 MG/0.5 ML SYRINGE IVP PRN (17:58)
[2024-11-06] MEDS: PANTOPRAZOLE 40 MG/10 ML VIAL IV SCH (08:29)
[2024-11-06 09:05] LABS: African American GFR (CKD) >90 (>60 ml/min/1.73 sqM); Amylase 261 U/L (30-110); Anion Gap 10 mmol/L; Blood Urea Nitrogen 9 mg/dL (9-20); Calcium 9.1 mg/dL (8.4-10.2); Carbon Dioxide 26 mmol/L (22-30); Chloride 105 mmol/L (98-107); Glucose 119 mg/dL (74-99); Lipase 1823 U/L (23-300); Non-African American GFR(CKD) >90 (>60 ml/min/1.73 sqM); Potassium 4.2 mmol/L (3.5-5.1); Sodium 141 mmol/L (137-145)
[2024-11-06 10:43] VITALS: BP 154/84; PULSE 70; RESP 19
--- NOTE | 2024-11-06 16:10 | P.HPIM ---
History of Present Illness H&P Date: 11/06/24 Chief Complaint: abdominal pain History and Physical and Discharge Summary: This is a 63-year-old male with past medical history significant for diabetes mellitus II, hard of hearing, liver disease, muscle skeletal disorder, sleep apnea- wears CPAP/BiPAP, lumbar decompression fusion/ orthopedic surgeries, anxiety, depression, ongoing nicotine dependence, history of alcohol abuse reports last consumption 20 years ago, treated hepatitis C, kidney stones and multiple other medical issues presented to the ER with increasing mid epigastric abdominal pain over the last 2 to 3 days. Reports his children had come home from [place], had a cookout eating fatty foods such as bratwurst, no EtOH. Initially presented to the ER on 11/04/2024, lipase was 10,715, left AMA and returned the next day. Amylase 512, lipase 4553, renal function stable, afe brile, normal WBC. CT abdomen pelvis reported stable 6 mm nodule in the right middle lobe, cirrhotic liver, nonobstructing 6 mm left renal calcification, no acute changes within the abdomen or pelvis no acute changes within the abdomen or pelvis. denies chest pain, palpitations or shortness of breath. Denies any fever or chills. Denies hematuria. Received IV fluid hydration, placed on bowel rest with clear liquids diet initiated this morning. Labs continue to improve with amylase down to 261 and lipase down to 1823. Tolerating diet, denies nausea vomiting or diarrhea. Reports significant improvement in pain, rating epigastric pain at 2 or less, denies flank or back pain. Review of Systems ROS Statement: Those systems with pertinent positive or pertinent negative responses have been documented in the HPI. ROS Other: All systems not noted in ROS Statement are negative. Past Medical History Past Medical History: Diabetes Mellitus, Hearing Disorder / Deafness, Liver Disease, Musculoskeletal Disorder, Skin Disorder, Sleep Apnea/CPAP/BIPAP Additional Past Medical History / Comment(s): NIDDM type II, DDD, spinal stenosis, chronic low back pain, numbness/tingling L foot, gastritis, benign colon polyps, diverticular disease, past + stool occult blood, nephrolithiasis, ERNESTO with Cpap use, eczema, past Russo's palsey, HX PANCREATITIS History of Any Multi-Drug Resistant Organisms: None Reported Past Surgical History: Back Surgery, Orthopedic Surgery Additional Past Surgical History / Comment(s): Posterior lumbar decompression, fusion L2-3-4, L4-L5,transforaminal lumbar interbody fusion, lithotripsy, BILAT CTR, RT 4TH TRIGGER FINGER RELEASE, 3 trigger fingers released on left hand, Colonoscopy, EGD, SPINAL INJECTIONS., PAIN CLINIC PROCEDURES, Past Anesthesia/Blood Transfusion Reactions: Previous Problems w/ Anesthesia Additional Past Anesthesia/Blood Transfusion Reaction / Comment(s): IV Rx very painful in arm w/ last colonoscopy 10/2019. Past Psychological History: Anxiety, Depression Additional Psychological History / Comment(s): Pt resides with his spouse. He is independent. Smoking Status: Current every day smoker Past Alcohol Use History: None Reported Additional Past Alcohol Use History / Comment(s): STARTED SMOKING AT AGE 17 - smokes 1/2-1 ppd Past Drug Use History: Marijuana Additional Drug Use History / Comment(s): USES MARIJUANA FOR PAIN-INSTRUCTED TO REFRAIN FROM USE FOR AT LEAST 24 HOURS PRIOR TO PROCEDURE - Past Family History Father Additional Family Medical History / Comment(s): AROUND AGE 70 UNK HX Mother Family Medical History: Cancer, Osteoarthritis (OA) Additional Family Medical History / Comment(s): SKIN CANCER MOM IS 87 YEARS OLD Medications and Allergies Home Medications Medication Instructions Recorded Confirmed Type lisinopriL [Zestril] 5 mg PO DAILY 11/13/19 11/05/24 History Pantoprazole Sodium [Protonix] 40 mg PO DAILY #30 tablet. 09/06/20 11/05/24 Rx DULoxetine HCL [Cymbalta] 60 mg PO DAILY 06/21/21 11/05/24 History Cetirizine HCl [Zyrtec] 10 mg PO HS 11/05/24 11/05/24 History Allergies Allergy/AdvReac Type Severity Reaction Status Date / Time morphine AdvReac Nausea & Verified 11/05/24 15:51 Vomiting Physical Exam Vitals: Vital Signs Temp Pulse Pulse Resp BP BP Pulse Ox 11/06/24 07:00 97.6 F 70 19 154/84 99 11/06/24 02:54 97.6 F 57 L 126/79 96 11/05/24 20:00 97.6 F 64 142/84 97 11/05/24 18:01 97.6 F 57 L 16 116/75 98 11/05/24 15:33 68 19 127/73 96 11/05/24 14:35 74 19 116/72 98 07/15/25 13:13 73 18 129/87 96 Intake and Output 11/05/24 11/06/24 11/06/24 22:59 06:59 14:59 Intake Total 250 Balance 250 Intake: Oral 250 Other: Weight 90.718 kg VITAL SIGNS: [Reviewed] GENERAL: Alert and oriented x 3, sitting up at side of bed, no acute distress HEENT: Normocephalic, atraumatic ,conjunctivae normal. eyes normal. NECK: Supple, No JVD. CARDIOVASCULAR: S1, S2 regular. No murmur RESPIRATION: Nonlabored, equal air entry, essentially clear to auscultation with bilateral bases diminished. ABDOMEN: Soft, nondistended, nontender ,no guarding. no masses palpable. No ascites, Bowel sounds heard. LEGS: No edema. no swelling . NERVOUS SYSTEM: Cranial N 2-12 grossly normal. Moves all 4 limbs. No focal deficits. Strength and sensation grossly intact. Skin: Warm and dry, no rash Results CBC & Chem 7: 11/05/24 13:18 11/06/24 08:39 Labs: Abnormal Lab Results - Last 24 Hours (Table) 11/05/24 11/05/24 11/06/24 Range/Units 13:18 13:18 08:39 MCH 32.1 H (27.0-32.0) pg Creatinine 0.57 L 0.64 L (0.66-1.25) mg/dL Glucose 115 H 119 H (74-99) mg/dL Amylase 512 H* 261 H (30-110) U/L Lipase 4553 H 1823 H (23-300) U/L Thrombosis Risk Factor Assmnt - Choose All That Apply Any of the Below Risk Factors Present?: No Assessment and Plan Assessment: Acute on chronic pancreatitis Liver cirrhosis, history of History of alcohol abuse, last drink reported 20 years ago History of hepatitis C Diabetes mellitus type 2 Hard of hearing Chronic back pain ,history of multiple orthopedic surgeries Anxiety Depression Ongoing nicotine dependence Obesity, BMI 35 Obstructive sleep apnea ,wears CPAP/BiPAP History of recurrent kidney stones; currently CT reported Nonobstructing 6 mm left renal calcification, follow-up with urology. Stable 6 mm nodule right middle lobe reported per CT, continue monitoring outpatient. Plan: Continue on current medication regime ,monitoring and symptomatic treatment. Patient denies nausea, vomiting, significant improvement in mid epigastric pain rated at 2 or less, eager for discharge home. Ambulating in room, tolerating exertion well. Denies chest pain, palpitations or shortness of breath. Denies lightheadedness, dizziness or focal deficits. Significant clinical improvement with lipase down to 1823. Patient has been advised to maintain clear liquid diet x 24 to 48 hours then advance slowly to soft nonfatty diet/consistent carb. Metformin and statin to remain on hold, reevaluate outpatient in clinic with PCP. Follow-up with urology regarding recurrent kidney stones. Discharge Medication List lisinopriL [Zestril] 5 mg PO DAILY 11/13/19 [History] Pantoprazole Sodium [Protonix] 40 mg PO DAILY #30 tablet. 09/06/20 [Rx] DULoxetine HCL [Cymbalta] 60 mg PO DAILY 06/21/21 [History] Cetirizine HCl [Zyrtec] 10 mg PO HS 11/05/24 [History] The impression and plan of care has been dictated as directed. : I performed a history and examination of this patient, discussed the same with the dictator. I agree with the dictator's note ,documented as a scribe. Any additional findings or plans will be noted.
[2024-11-06] MEDS ORDERED: LORATADINE 10 MG TAB PO SCH (21:00)
[2024-11-07] MEDS ORDERED: PANTOPRAZOLE 40 MG TABLET PO SCH (09:00)
== END 2024-11-06 12:35 | disposition home or self-care (01) ==
LOC: EC 12:04 → 1SOBS 15:51
PROVIDERS: ADMIT Family Medicine; ATTEND Family Medicine
DX: K85.90 Acute pancreatitis without necrosis or infection, unspecified (principal); K86.1 Other chronic pancreatitis; R11.0 Nausea; E11.9 Type 2 diabetes mellitus without complications; K74.60 Unspecified cirrhosis of liver; G47.33 Obstructive sleep apnea (adult) (pediatric); N20.0 Calculus of kidney; N28.89 Other specified disorders of kidney and ureter; K57.90 Diverticulosis of intestine, part unspecified, without perforation or abscess without bleeding; G89.29 Other chronic pain; M48.00 Spinal stenosis, site unspecified; M54.50 Low back pain, unspecified; M79.9 Soft tissue disorder, unspecified; F32.A Depression, unspecified; F41.9 Anxiety disorder, unspecified; E66.9 Obesity, unspecified; Z68.35 Body mass index [BMI] 35.0-35.9, adult; H91.90 Unspecified hearing loss, unspecified ear; F10.11 Alcohol abuse, in remission; F17.210 Nicotine dependence, cigarettes, uncomplicated; Z79.899 Other long term (current) drug therapy; Z79.84 Long term (current) use of oral hypoglycemic drugs; Z88.8 Allergy status to other drugs, medicaments and biological substances; Z88.5 Allergy status to narcotic agent; Z87.19 Personal history of other diseases of the digestive system; Z86.19 Personal history of other infectious and parasitic diseases; Z87.442 Personal history of urinary calculi; Z86.0100 Personal history of colon polyps, unspecified
CPT/HCPCS: 96375 ×2; 96376 ×2; 96361; 96374; 99284; 36415; 80053; 80048; 82150 ×2; 83605; 83690 ×2; 85025; 74177; G0378 ×2; S4990; J2405; J1171 ×3; J1885; Q9967; J2470